=== PATIENT | male | born 1935 | race Caucasian/White ===

== ENCOUNTER → 2016-10-30 | Outpatient (CLI) | payer MEDICARE ==
[2016-09-27 15:35] VITALS: BP 126/56
[~2016-10-30] MED LIST: BISA10SU55 RC; CLOT15CR3 TP; CYAN10005 PO; DOCU100C5 PO; FAMO20TA5 PO; FLUT9.9S NS; FURO-69 PO; FURO40TA4 PO; HYDR-2672 PO; Hydrocodone/Acetaminophen PO; LISI-338 PO; LISI10TA2 PO; LORA10TA3 PO; MAG360OR24 PO; MESA4ENE3 PR; META800T21 PO; MONT10TA6 PO; NAPR220T70 PO; OXYC10TA32 PO; OXYC15TA60 PO; OXYC5TAB PO; PANT40TA3 PO; PEG1POWD PO; PHEN26CR RC; PHEN51GE TP; POTA20TA12 PO; SENN-6 PO; SIME80TA14 PO; TAMS0.4C2 PO; TAMS0.4C97 PO; TRAZ50TA15 PO; VIT1TABL32 PO; ZOLP10TA PO; [UNRECOGNIZED DRUG - CODE] PO
--- NOTE | 2016-10-30 11:30 | KCIC ---
PROCEDURE Three-view lumbar spine HISTORY Severe low back pain. Fusion May 2015. COMPARISON October 09, 2015. FINDINGS Changes of lumbar fusion from L3 through L5 are again identified. Alignment is stable since previous exam. Anterolisthesis of L4 on L5 appears similar. Multilevel lumbar spondylosis is re-demonstrated. There is generalized bone demineralization. The previously seen deformity of the upper sacrum, compatible with fracture, appears similar and alignment as on the prior study. Inferior vena cava filter is again noted. IMPRESSION 1. Postsurgical changes in lumbar spondylosis, re-demonstrated. 2. No significant change since the prior study. Electronically signed by: Taj Dowling MD (Oct 30, 2016 11:29:16)
== END | disposition home or self-care (01) ==
LOC: KCIC 10:38
PROVIDERS: ATTEND Neurological Surgery
DX: M47.896 Other spondylosis, lumbar region (principal)
CPT/HCPCS: 72100

== ENCOUNTER → 2016-11-24 | Outpatient (CLI) | payer MEDICARE ==
[2016-09-27 15:35] VITALS: BP 126/56
--- NOTE | 2016-11-24 10:11 | KCIC ---
PROCEDURE Ultrasound abdomen complete. HISTORY Diffuse abdominal pain. Bladder cancer. TECHNIQUE Ultrasound of the abdomen was performed. COMPARISON None. FINDINGS Pancreas is mostly obscured by bowel gas, visualized portions within normal limits. Aorta is normal caliber where visualized. IVC is patent. Liver is normal in size and echogenicity. There is no discrete hepatic mass. Gallbladder is negative. Common bile duct measures up to 6 millimeters, can be within normal limits in a patient of this age. Kidneys are atrophic, the right measuring 7.5 centimeters and the left 8.9 centimeters in size. There is increase in cortical echogenicity. Spleen is not well evaluated. IMPRESSION - Atrophic kidneys bilaterally with findings suggesting medical renal disease. - Spleen and midline structures poorly visualized by bowel gas and body habitus. Electronically signed by: Shawn Soliman MD (Nov 24, 2016 10:09:36)
== END | disposition home or self-care (01) ==
LOC: KCIC US 08:30
DX: R10.9 Unspecified abdominal pain (principal)
CPT/HCPCS: 76700

== ENCOUNTER → 2016-12-04 | Outpatient (CLI) | payer MEDICARE ==
[2016-09-27 15:35] VITALS: BP 126/56
[~2016-12-04] MED LIST changes: +IOHEXOL 240 MG/ML 50ML VIAL. PO ONE; +IOHEXOL 300 MG/ML 100ML VIAL. IV ONE
--- NOTE | 2016-12-04 12:14 | KCIC ---
PROCEDURE CT of the abdomen and pelvis without intravenous contrast HISTORY Upper abdomen pain. Acid reflux. Bladder cancer. Back, neck and carotid surgery. TECHNIQUE No intravenous contrast due to limited renal function. Oral contrast was given. Exposure: One or more of the following individualized dose reduction techniques were utilized for this exam: 1. Automated exposure control. 2. Adjustment of the mA and/or kV according to patient size. 3. Use of iterative reconstruction technique. COMPARISON October 20, 2013. FINDINGS Lung bases clear. Coronary calcifications are noted. Examination of solid viscera, GI tract and vascular structures is compromised by the noncontrast technique. Liver, spleen, pancreas, appear unremarkable. No adrenal mass although both kidneys demonstrate slightly nodular morphology, which is unchanged since the prior study. There is a small exophytic lesion arising from left kidney, measuring 15 millimeters diameter, likely a cyst. This was also identified on the prior study. Small calcification at the right renal pelvis is unchanged and may be vascular. There is a prominent right extrarenal pelvis versus parapelvic cyst. The ureters are difficult to follow. No calcified gallstone. The aorta is ectatic and calcified. Dense calcification at major aortic branches. No gross aortic aneurysm. No evidence of bowel obstruction. Mild wall thickening of the rectum. There may be mild wall thickening of the left transverse colon although this may just be due to incomplete distension. There is also some apparent wall thickening of the cecum without gross pericecal inflammation. There is a small round density within the cecum could represent an ingested substance. Mild generalized urinary bladder wall thickening appears slightly greater than on the prior study. The prostate gland is mildly enlarged. No evidence of ascites. No significant enlargement of visualized lymph nodes. Inferior vena cava filter is noted. There is a comminuted fracture of the left pubic bone, not seen on the prior study, and also not present on MRI exam of 04/09/2015. Vertical fractures are now identified through both iliac bones. These demonstrates some callus formation and may be of stress etiology. There is also abnormal lucency within the sacrum bilaterally, also probably due to stress fractures. There are surgical changes at the lower lumbar spine. Lumbar spondylosis is identified. IMPRESSION 1. Comminuted fracture of the left pubic bone. Vertical fractures of both iliac bones. Bilateral sacral fracture. These may all represent stress fractures assuming there is no trauma history. There is bone volume loss at the left pubic bone fracture, which could just represent bone resorption, but pathologic fracture such as from metastatic focus is not excludable. 2. Mild wall thickening of the rectum, cecum and possibly the left transverse colon, without much pericolonic inflammation. Etiology uncertain but nonspecific colitis is considered. 3. Mild uniform urinary bladder wall thickening, considerations include chronic outlet obstruction, or acute or chronic cystitis. 4. Above findings were left on the voicemail of Dr. Pineda's nurse, Lexa, at 12:05 p.m. on 12/04/2016. Electronically signed by: Taj Dowling MD (Dec 04, 2016 12:12:52)
== END | disposition home or self-care (01) ==
LOC: KCIC CT 09:51
PROVIDERS: ATTEND Internal Medicine Gastroenterology
DX: M84.48XA Pathological fracture, other site, initial encounter for fracture (principal); K21.9 Gastro-esophageal reflux disease without esophagitis; M47.896 Other spondylosis, lumbar region
CPT/HCPCS: 74176; 82565; Q9966

== ENCOUNTER 2017-04-18 02:31 | Inpatient (IN) | payer MEDICARE ==
[~2017-04-18] VITALS: Ht 177.8 cm; Wt 69.2 kg
[~2017-04-18 02:31] MED LIST changes: +DOCU100C28 PO; -DOCU100C5 PO; -HYDR-2672 PO; +HYDR-2766 PO; -IOHEXOL 240 MG/ML 50ML VIAL. PO ONE; -IOHEXOL 300 MG/ML 100ML VIAL. IV ONE; +META-21 PO; -META800T21 PO; -OXYC10TA32 PO; +OXYC10TA45 PO
[2017-04-18 03:47] LABS: BASO % 0 % (0-3); EOS % 1 % (0-3); HEMATOCRIT 30.5 % (39.0-53.0); HEMOGLOBIN 10.1 g/dL (13.0-17.5); LYMPH # 1.2 x10^3/uL (1.0-4.8); LYMPH % 14 % (24-48); MEAN CORPUSCULAR HEMOGLOBIN 31 pg (25-35); MEAN CORPUSCULAR HGB CONC 33 g/dL (31-37); MEAN CORPUSCULAR VOLUME 92 fL (79-100); MONO % 9 % (0-9); NEUT % 76 % (31-73); PLATELET COUNT 194 x10^3/uL (140-400); RED BLOOD COUNT 3.31 x10^6/uL (4.30-5.70); RED CELL DISTRIBUTION WIDTH 14.5 % (11.5-14.5); WHITE BLOOD COUNT 8.4 x10^3/uL (4.0-11.0)
[2017-04-18 04:00] LABS: INR 1.1 (0.8-1.1); PROTHROMBIN TIME PATIENT 13.3 SEC (11.7-14.0)
[2017-04-18] MEDS ORDERED: LIDOCAINE/EPI/TETRACAINE TOPICAL GEL 3 ML. TP ONE (04:00)
[2017-04-18] MEDS ORDERED: DIPHTH,PERTUSS(ACELL),TET TOX 0.5 ML DISP.SYRIN. VAX IM ONE (04:00)
[2017-04-18 04:04] LABS: CALCIUM 8.8 mg/dL (8.5-10.1); CREATININE 1.6 mg/dL (0.7-1.3); GFR 41.6; POTASSIUM 3.6 mmol/L (3.5-5.1)
[2017-04-18 04:09] LABS: ALBUMIN 3.3 g/dL (3.4-5.0); ALBUMIN/GLOBULIN RATIO 0.8 (1.0-1.7); TOTAL BILIRUBIN 0.2 mg/dL (0.2-1.0); TOTAL PROTEIN 7.2 g/dL (6.4-8.2)
--- NOTE | 2017-04-18 04:13 | RAD ---
Examination: CT head and cervical spine without contrast HISTORY: History of fall, neck pain, headache COMPARISON: None available Exposure: One or more of the following individualized dose reduction techniques were utilized for this examination: 1. Automated exposure control 2. Adjustment of the mA and/or kV according to patient size 3. Use of iterative reconstruction technique CT HEAD INDICATION: head and neck pain after fall COMPARISON: None Available. TECHNIQUE: 5 mm contiguous axial images were obtained from the skull base to the vertex in both bone and soft tissue algorithm. FINDINGS: Small left frontal lateral scalp hematoma identified. Mild bilateral periventricular white matter hypodensities likely chronic small vessel ischemic disease. No abnormal attenuation within the brain parenchyma. No evidence of acute intracranial hemorrhage. No extra-axial fluid collections. No mass effect or midline shift. Ventricular size is appropriate. Basal cisterns are patent. No fractures identified.Ceballos-white differentiation is preserved.Globes and orbits are within normal limits. Paranasal sinuses and mastoid air cells are clear. IMPRESSION: No acute intracranial findings . Small left scalp hematoma. CT CERVICAL SPINE INDICATION: head and neck pain after fall COMPARISON: None Available. Technique: 2.5 mm contiguous axial images were obtained from the skull base through the cervicothoracic junction in both bone and soft tissue algorithm. Additional sagittal and coronal reconstructions were also performed. FINDINGS: There is straightening of normal cervical lordosis. Anterior cervical fusion hardware identified at C3-C6 vertebral level. The bilateral facets are well aligned. Intervertebral disc spacers identified at C3-C4, C4-C5, C5-C6. The lateral masses of C1 are aligned upon C2. No fractures identified. Moderate degenerative changes identified throughout the cervical spine. The paraspinous soft tissues are unremarkable. Visualized intracranial contents are unremarkable. Lung apices are clear. IMPRESSION: 1. No acute fracture cervical spine. Correlate clinically. Anterior cervical fusion hardware with intervertebral disc spacers identified at C3-C6 vertebral level Electronically signed by: Madan Donohue MD (04/18/2017 4:10 AM) [facility] [id number]
[2017-04-18] MEDS ORDERED: ACETAMINOPHEN 325 MG TABLET. PO PRN (05:30)
[2017-04-18] MEDS ORDERED: MORPHINE SULFATE 4 MG/ML DISP.SYRIN. IV PRN (05:30)
[2017-04-18] MEDS ORDERED: ONDANSETRON PF 4 MG/2 ML VIAL. IV PRN (05:30)
--- NOTE | 2017-04-18 06:25 | PHYS DOC ---
Past Medical History Past Medical History: Anemia, Arthritis, GERD, Renal Disease Additional Past Medical Histor: BLADDER CANCER, BACK PAIN, DDD Past Surgical History: Tonsillectomy Additional Past Surgical Histo: BACK SX, KNEE SX, FILTER IN R LEG, CARTOID SX Alcohol Use: None Drug Use: None Adult General Chief Complaint Chief Complaint: MECHANICAL FALL HPI HPI Patient is a 81 year old male who presents with fall & scalp laceration. THe patient states he woke up 1 hour prior to arrival, experienced fall, hit head on dresser. States he took ambien before bed. Denes headache, neck pain, back pain, extremity pain. Denies fevers/cihlls, chest pain, palpitations, shortness of breath, abdominal pain, vomiting, diarrhea. Reports previous fall earlier this week. Denies use of blood thinners. Lives at home. Tetanus unnkwon. PCP is Dr. Marinelli. Review of Systems Review of Systems Constitutional: Denies fever or chills Eyes: Denies change in visual acuity HENT: Denies nasal congestion or sore throat Respiratory: Denies cough or shortness of breath Cardiovascular: Denies chest pain or edema GI: Denies abdominal pain, nausea, vomiting, bloody stools or diarrhea : Denies dysuria or hematuria Musculoskeletal: Denies back pain or joint pain Integument: Denies rash or skin lesions Neurologic: Reports headache, denies ocal weakness or sensory changes Current Medications Current Medications Current Medications Medications (Trade) Dose Ordered Sig/Carter Start Time Stop Time Status Last Admin Dose Admin Acetaminophen (Tylenol) 650 mg PRN Q4HRS PRN 04/18/17 05:30 04/19/17 05:29 Diphtheria/ Tetanus/Acell Pertussis (Boostrix) 0.5 ml ONCE ONCE 04/18/17 04:00 04/18/17 04:01 DC 04/18/17 04:26 0.5 ML Lidocaine/ Epinephrine (Let Topical) 3 ml 1X ONCE 04/18/17 04:00 04/18/17 04:01 DC 04/18/17 03:52 3 ML Morphine Sulfate 2 mg PRN Q2HR PRN 04/18/17 05:30 04/19/17 05:29 04/18/17 06:02 2 MG Ondansetron HCl (Zofran) 4 mg PRN Q8HRS PRN 04/18/17 05:30 04/19/17 05:29 Allergies Allergies Allergies Coded Allergies Type Severity Reaction Last Updated Verified Penicillins Allergy Intermediate 06/13/15 Yes adhesive tape Adverse Reaction Intermediate tape- pulls skin off 06/13/15 Yes Physical Exam Physical Exam Constitutional: Well developed, well nourished, no acute distress, non-toxic appearance. HENT: Normocephalic, large 10 cm scalp flap laceration to left frontal region, bilateral external ears normal, no hemotympanum or castle sign, oropharynx moist , nose normal. Eyes: PERRLA, EOMI, conjunctiva normal, no discharge. Neck: supple, no stridor. NO midline c-spine tenderness. Cardiovascular: RRR, no murmurs, no edema. Lungs & Thorax: LCTAB, no wheezing, no respiratory distress. Abdomen: soft, nontender, nondistended. Skin: Warm, dry, no erythema, no rash. Back: No spinal tenderness or step offs. Extremities: No tenderness, no edema. Neurologic: Alert and oriented X 3, CN2-12 grossly intact, symmetric strength/ sensation to UE & LE, no focal deficits noted. Psychologic: Affect normal, judgement normal, mood normal. Current Patient Data Vital Signs Vital Signs Date Time Temp Pulse Resp B/P (MAP) Pulse Ox O2 Delivery O2 Flow Rate FiO2 04/18/17 05:30 69 122/62 (82) 99 Room Air 04/18/17 02:35 98.4 16 98.4 Lab Values Laboratory Tests Test 04/18/17 03:30 White Blood Count 8.4 x10^3/uL (4.0-11.0) Red Blood Count 3.31 x10^6/uL (4.30-5.70) L Hemoglobin 10.1 g/dL (13.0-17.5) L Hematocrit 30.5 % (39.0-53.0) L Mean Corpuscular Volume 92 fL (79-100) Mean Corpuscular Hemoglobin 31 pg (25-35) Mean Corpuscular Hemoglobin Concent 33 g/dL (31-37) Red Cell Distribution Width 14.5 % (11.5-14.5) Platelet Count 194 x10^3/uL (140-400) Neutrophils (%) (Auto) 76 % (31-73) H Lymphocytes (%) (Auto) 14 % (24-48) L Monocytes (%) (Auto) 9 % (0-9) Eosinophils (%) (Auto) 1 % (0-3) Basophils (%) (Auto) 0 % (0-3) Neutrophils # (Auto) 6.4 x10^3uL (1.8-7.7) Lymphocytes # (Auto) 1.2 x10^3/uL (1.0-4.8) Monocytes # (Auto) 0.8 x10^3/uL (0.0-1.1) Eosinophils # (Auto) 0.1 x10^3/uL (0.0-0.7) Basophils # (Auto) 0.0 x10^3/uL (0.0-0.2) Prothrombin Time 13.3 SEC (11.7-14.0) Prothrombin Time INR 1.1 (0.8-1.1) PTT 28 SEC (24-38) Sodium Level 144 mmol/L (136-145) Potassium Level 3.6 mmol/L (3.5-5.1) Chloride Level 104 mmol/L (98-107) Carbon Dioxide Level 31 mmol/L (21-32) Anion Gap 9 (6-14) Blood Urea Nitrogen 40 mg/dL (8-26) H Creatinine 1.6 mg/dL (0.7-1.3) H Estimated GFR (Cockcroft-Gault) 41.6 BUN/Creatinine Ratio 25 (6-20) H Glucose Level 117 mg/dL (70-99) H Calcium Level 8.8 mg/dL (8.5-10.1) Total Bilirubin 0.2 mg/dL (0.2-1.0) Aspartate Amino Transferase (AST) 16 U/L (15-37) Alanine Aminotransferase (ALT) 18 U/L (16-63) Alkaline Phosphatase 103 U/L (46-116) Troponin I Quantitative < 0.017 ng/mL (0.000-0.055) JY-Xbl-G-Type Natriuretic Peptide 247 pg/mL (0-449) Total Protein 7.2 g/dL (6.4-8.2) Albumin 3.3 g/dL (3.4-5.0) L Albumin/Globulin Ratio 0.8 (1.0-1.7) L Laboratory Tests 04/18/17 03:30 Laboratory Tests 04/18/17 03:30 EKG EKG Oversight - not originally complaining of syncope. Ordered to be performed on the floor. Radiology/Procedures Radiology/Procedures PROCEDURE: CT HEAD AND CERVICAL SPINE WO Examination: CT head and cervical spine without contrast HISTORY: History of fall, neck pain, headache COMPARISON: None available Exposure: One or more of the following individualized dose reduction techniques were utilized for this examination: 1. Automated exposure control 2. Adjustment of the mA and/or kV according to patient size 3. Use of iterative reconstruction technique CT HEAD INDICATION: head and neck pain after fall COMPARISON: None Available. TECHNIQUE: 5 mm contiguous axial images were obtained from the skull base to the vertex in both bone and soft tissue algorithm. FINDINGS: Small left frontal lateral scalp hematoma identified. Mild bilateral periventricular white matter hypodensities likely chronic small vessel ischemic disease. No abnormal attenuation within the brain parenchyma. No evidence of acute intracranial hemorrhage. No extra-axial fluid collections. No mass effect or midline shift. Ventricular size is appropriate. Basal cisterns are patent. No fractures identified.Ceballos-white differentiation is preserved.Globes and orbits are within normal limits. Paranasal sinuses and mastoid air cells are clear. IMPRESSION: No acute intracranial findings . Small left scalp hematoma. CT CERVICAL SPINE INDICATION: head and neck pain after fall COMPARISON: None Available. Technique: 2.5 mm contiguous axial images were obtained from the skull base through the cervicothoracic junction in both bone and soft tissue algorithm. Additional sagittal and coronal reconstructions were also performed. FINDINGS: There is straightening of normal cervical lordosis. Anterior cervical fusion hardware identified at C3-C6 vertebral level. The bilateral facets are well aligned. Intervertebral disc spacers identified at C3-C4, C4-C5, C5-C6. The lateral masses of C1 are aligned upon C2. No fractures identified. Moderate degenerative changes identified throughout the cervical spine. The paraspinous soft tissues are unremarkable. Visualized intracranial contents are unremarkable. Lung apices are clear. IMPRESSION: 1. No acute fracture cervical spine. Correlate clinically. Anterior cervical fusion hardware with intervertebral disc spacers identified at C3-C6 vertebral level Electronically signed by: Madan Donohue MD (04/18/2017 4:10 AM) [facility] DICTATED and SIGNED BY: MADAN DONOHUE MD DATE: 04/18/17 0401 [] Course & Med Decision Making Course & Med Decision Making Pertinent Labs and Imaging studies reviewed. (See chart for details) The patient presents with pain after a fall. Tetanus updated. Wound irrigated by RN. I attempted laceration repair after application of LET. THe affected area is so large & there is absence of adequate tissue to approximate wound edges. RN to place dressing. No serious abnormality identified on workup. Recommend admission for further evaluation for possible syncope & wound care consult for large scalp laceration. THe patient agrees with plan of care. Discussed iwth Dr. Coreas. The patient is admitted in stable condition. [] Dragon Disclaimer Dragon Disclaimer This electronic medical record was generated, in whole or in part, using a voice recognition dictation system. Departure Departure Impression: Primary Impression: Syncope Additional Impressions: Scalp laceration Acute renal failure Disposition: ADMITTED INPATIENT Admitting Physician: Elidia Coreas Condition: STABLE Problem Qualifiers MARIBELL ACOSTA MD Apr 18, 2017 06:24
[2017-04-18 06:27] LABS: BILIRUBIN,URINE NEGATIVE (NEG); GLUCOSE,URINE NEGATIVE (NEG); NITRITE,URINE NEGATIVE (NEG); PH,URINE 5.5; PROTEIN,URINE NEGATIVE (NEG-TRACE); UROBILINOGEN,URINE 0.2 mg/dL (0.2 mg/dL)
[2017-04-18 07:07] LABS: BACTERIA,URINE FEW /HPF (0-FEW); SQUAMOUS EPITHELIAL CELL,UR OCC /LPF
[2017-04-18 07:54] VITALS: BP 138/75
--- NOTE | 2017-04-18 09:28 | EKG ---
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
[2017-04-18] MEDS ORDERED: ZOLP5TAB PO (09:56)
[2017-04-18] MEDS ORDERED: POLY255P PO (09:56)
[2017-04-18] MEDS ORDERED: VIT1TABL34 PO (09:56)
[2017-04-18] MEDS ORDERED: DOCU100C28 PO (09:56)
[2017-04-18] MEDS ORDERED: POTASSIUM CHLO10 MEQ PO (09:56)
[2017-04-18] MEDS ORDERED: CYAN10005 PO (09:56)
[2017-04-18] MEDS ORDERED: NIAC500C6 PO (09:56)
[2017-04-18 10:55] VITALS: BP 118/63
[2017-04-18 15:00] VITALS: BP 124/57
[2017-04-18 19:59] VITALS: BP 113/73
[2017-04-18] MEDS ORDERED: DOCUSATE SODIUM 100 MG CAPSULE. PO PRN ×2 (21:00→22:00)
[2017-04-18] MEDS ORDERED: ZOLPIDEM 5 MG TABLET. PO PRN (21:00)
[2017-04-18] MEDS ORDERED: LOPERAMIDE 2 MG CAPSULE PO PRN (21:00)
[2017-04-18] MEDS ORDERED: HYDROcodone/APAP 10/325 1 TAB TABLET PO PRN (22:00)
[2017-04-18] MEDS ORDERED: POLYETHYLENE GLYCOL 3350 17 GM PACKET. PO PRN (22:00)
--- NOTE | 2017-04-18 22:42 | HP ---
ADMIT DATE: 04/18/2017 CHIEF COMPLAINT: Fall with superficial head injury. HISTORY OF PRESENT ILLNESS: The patient is an 81-year-old gentleman who lives at home with his , uses a walker to ambulate, who presented to the Emergency Room after a fall with head injury with significant bleeding. He relates that he woke up in the early childhood hours and arose to go to the bathroom when he experienced a blackout, fell and hit his dresser. He had taken an Ambien before. Denies any neck pain or back pain. Does have mild headaches. Denies any fevers, chills, chest pain, shortness of breath or other symptoms. On further questioning, he relates that he actually had fallen twice before in the past week. Both times, the cause was mechanical, and he was able to right himself, although with difficulties. In the Emergency Room, he was evaluated, flat films and CT cervical spine did not reveal any significant bony abnormalities. A fairly large defect in his scalp was attempted to be sutured; however, not enough skin was available to do so. A dressing was placed. He is now admitted for workup and care. 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 Positive for PVD with carotid disease and claudication. FAMILY HISTORY: The patient is unaware of any diseases prevalent in the family. SOCIAL HISTORY: Lives with his . No toxic habits. ALLERGIES: PENICILLINS. MEDICATIONS: MAR reconciled with home medications. REVIEW OF SYSTEMS: The patient denies significant headache, but he is wondering about his wound. He has chronic aches and pains, nothing acute. Denies any ongoing hematuria or diarrhea, but would like preparations for both diarrhea as well as constipation. Rest of organ system review is negative. PHYSICAL EXAMINATION: VITAL SIGNS: Show a blood pressure of 118/63, heart rate of 75, respiratory rate at 18. He is afebrile. GENERAL: This is an 81-year-old well-nourished gentleman, alert and oriented, in no acute distress, very verbose. HEENT: Shows no scleral icterus. NECK: Supple. LUNGS: Clear to auscultation bilaterally. HEART: Has regular rate and rhythm. ABDOMEN: Has positive bowel sounds, soft, nontender. EXTREMITIES: Show no edema. SKIN: Warm, soft and dry. Head shows deep skin injury over the left frontotemporal area with defect almost to the bone. No hematoma noted. There is also an abrasion over the bridge of his nose. LABORATORY DATA: CBC with a WBC of 8.4, hemoglobin 10.1, platelets of 194. Chemistries with a BUN and creatinine of 40 and 1.6. Electrolytes within normal limits. LFTs within normal, albumin at 3.3. Urine with 1-3 wbc's. IMAGING STUDIES: CT of the head and spine shows no acute intracranial findings, small left scalp hematoma. Cervical spine without acute fracture in the cervical spine, anterior cervical fusion hardware with intervertebral disk spaces identified at C3-C6. ASSESSMENT AND PLAN: The patient is an 81-year-old gentleman admitted after a fall with superficial head injury. This could not be approximated due to lack of the skin. Wound care nurse will have to apply appropriate bandages. Unfortunately, this may not be happening until Thursday. Etiology of his syncopal episode is not quite clear, although I suspect that Ambien and potential dehydration have to be blamed. He has had several mechanical falls in recent past as well. May benefit from rehab placement. We will continue all his home medications. Pain medications will be made available for him as well. PAULY ROJAS MD DR: VLAD/uvaldo JOB#: [id number] / [id number] GEORGE Barrett
[2017-04-18 23:42] VITALS: BP 133/71
[2017-04-19] VITALS (7 sets, daily range): BP systolic 106–138; BP diastolic 62–70
--- NOTE | 2017-04-19 03:14 | ACF ---
Admission Forms Criteria TELEMETRY CARE Telemetry Admission Guidelines (Place 'X' for any and all applicable criteria): Admission to telemetry [A] may be indicated for ANY ONE of the following(1)(2)(3 )(4)(5): [ ]I. Cardiac disease, including ANY ONE of the following (9)(10)(11)(12)(13 ): [ ]a) Postacute NJ [ ]b) Low-risk patients with ST-segment elevation NJ who have undergone successful percutaneous coronary intervention [ ]c) Unstable angina [ ]d) Suspected NJ (until it is ruled out) [ ]e) Post cardiac surgery (first 48 to 72 hours unless complications occur) [ ]f) Acute arrhythmias (including significant tachycardia or bradycardia) [B] [ ]g) Firing of an implantable cardioverter defibrillator [C] [ ]h) Suspected pacemaker or implantable cardioverter defibrillator malfunction (10) [ ]i) New administration or adjustment of an antiarrhythmic drug [D ] [ ]j) Child admitted for acute congestive heart failure [ ]j) Long QT syndrome [ ]k) Advanced heart block (eg, second-degree Mobitz type II, third- degree heart block) [ ]l) Acute myocarditis or pericarditis [ ]m) Short-term (ambulatory or inpatient) monitoring after a cardiac procedure as indicated by ANY ONE of the following [E]: [ ]i) Electrophysiologic studies [ ]ii) Percutaneous coronary intervention with stent placement [ ]iii) Pacemaker placement with cardiac conduction defect [ ]iv) Implantable cardiac defibrillator placement [ ]II. Drug overdose or poisoning with substance that causes arrhythmias or QT prolongation (eg, phenothiazines, sympathomimetic agents, cyclic antidepressants, digitalis, antiarrhythmic drugs)(15) [ ]III. Short-term (ambulatory or inpatient) monitoring after therapeutic or diagnostic procedure requiring conscious sedation or anesthesia (eg, endoscopy, elective cardioversion) [ ]IV. Acute cerebrovascular even[F](18) [ ]V. Massive blood transfusion (eg, at least 10 units of packed red blood cells in 24 hours) [ ]. Variceal bleeding after endoscopy, sclerotherapy, or IV vasopressin [ ]VII. Uncorrected electrolyte abnormalities associated with an increased risk of dangerous arrhythmia [G]; examples include [ ]a) Hyperkalemia with attributable ECG changes [ ]b) Potassium greater than 6.5 mmol/L (mEq/L) in a patient without history of chronic renal disease [ ]c) Prolonged QT attributed to hypokalemia, hypomagnesemia, or hypocalcemia [ X]VIII.Unexplained syncope or other neurologic event suspected of being due to arrhythmia due to a finding that increases risk; examples include(19)(20)(21): [ ]a) High-risk ECG findings (eg, bifascicular block, bradycardia, abnormal QT interval, ventricular pre- excitation) [ ]b) History of previous syncope due to arrhythmia [ ]c) Abnormal ventricular function (eg, reduced ejection fraction ) [ ]d) Exertional or supine syncope [X ]e) Concerning syncope characteristics (eg, sudden loss of consciousness without prodrome) [ ]f) Family history of sudden [ ]g) Use of arrhythmogenic medication [ ]h) Suspected cardiac ischemia [ ]i) Known channelopathy (eg, long QT syndrome, Brugada syndrome, or catecholaminergic paroxysmal ventricular tachycardia) [ ]j) Known structural heart disease (eg, hypertrophic cardiomyopathy , severe valvular disease) [ ]k) Palpitations preceding syncope The original [employer] content created by [employer] has been revised. The portions of the content which have been revised are identified through the use of italic text or in bold, and [employer] [facility] [employer] has neither reviewed nor approved the modified material. All other unmodified content is copyright [employer]. Please see references footnoted in the original [employer] edition 2016 Admission Criteria Met?: Yes MEREDITH ZIMMERMAN Apr 19, 2017 03:14
[2017-04-19 06:06] LABS: BASO % 1 % (0-3); EOS % 3 % (0-3); HEMATOCRIT 25.3 % (39.0-53.0); HEMOGLOBIN 8.5 g/dL (13.0-17.5); LYMPH # 1.3 x10^3/uL (1.0-4.8); LYMPH % 21 % (24-48); MEAN CORPUSCULAR HEMOGLOBIN 31 pg (25-35); MEAN CORPUSCULAR HGB CONC 34 g/dL (31-37); MEAN CORPUSCULAR VOLUME 91 fL (79-100); MONO % 10 % (0-9); NEUT % 65 % (31-73); PLATELET COUNT 169 x10^3/uL (140-400); RED CELL DISTRIBUTION WIDTH 14.8 % (11.5-14.5); WHITE BLOOD COUNT 6.3 x10^3/uL (4.0-11.0)
[2017-04-19 06:23] LABS: CALCIUM 8.6 mg/dL (8.5-10.1); CREATININE 1.3 mg/dL (0.7-1.3); GFR 52.9; POTASSIUM 4.1 mmol/L (3.5-5.1)
[2017-04-19] MEDS: POTASSIUM CHLORIDE 10 MEQ TABLET.ER. PO SCH (07:28)
[2017-04-19] MEDS: PANTOPRAZOLE 40 MG TABLET.DR. PO SCH (07:28)
[2017-04-19] MEDS: PHENYLEPHRINE SUPP.RECT. PR SCH ×2 (08:51→20:30)
[2017-04-19] MEDS: FLUTICASONE 50MCG/NASAL SPRAY 16GM BOTTLE. NS SCH (08:51)
[2017-04-19] MEDS: CYANOCOBALAMIN (VITAMIN B-12) 1,000 MCG TABLET. PO SCH (08:51)
[2017-04-19] MEDS: MULTIVITAMIN I-VITE TABLET. PO SCH (08:51)
[2017-04-19] MEDS ORDERED: FUROSEMIDE 40 MG TABLET. PO SCH (09:00)
--- NOTE | 2017-04-19 13:58 | PDOC ---
PROGRESS NOTES Chief Complaint Chief Complaint s/p fall superficial head injury ASSESSMENT AND PLAN: 1. Scalp abrasion: not suturable due to missing skin. wound dressing, F/U in wound clinic 2. Syncope: suspect ambien and dehydration, also component of LE weakness with prior mechanical falls. 3. Gen weakness; OT/PT eval, poss rehab; d/w him, he is amenable 4. EMERALD: improved, suspect 2/2 dehydration. monitor. decrease home lasix. 5. CHF: grade 1 DD in 08/2016. no acute issues. 6. Anemia: moderate, normocytic, normochromic. suspect chronic inflammation ( CHF, cystitis) and CKD. check anemia panel 7. Bladder CA: superficial and invasive; s/p XRT, chemo, surgery and BCG irrigations. 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 F/U with [facility] 8. Prophylaxis: heparin Vitals Vitals Vital Signs Date Time Temp Pulse Resp B/P (MAP) Pulse Ox O2 Delivery O2 Flow Rate FiO2 04/19/17 11:00 98.1 79 18 117/63 (81) 96 Room Air 98.1 Physical Exam General: Alert, Oriented X3, Cooperative, No acute distress Heart: Regular rate Lungs: Clear Abdomen: Normal bowel sounds, Soft, No tenderness Extremities: No edema Skin: No rashes, Other (scalp and bridge of nose abrasions) Labs LABS Laboratory Tests Test 04/19/17 05:56 White Blood Count 6.3 x10^3/uL (4.0-11.0) Red Blood Count 2.80 x10^6/uL (4.30-5.70) Hemoglobin 8.5 g/dL (13.0-17.5) Hematocrit 25.3 % (39.0-53.0) Mean Corpuscular Volume 91 fL (79-100) Mean Corpuscular Hemoglobin 31 pg (25-35) Mean Corpuscular Hemoglobin Concent 34 g/dL (31-37) Red Cell Distribution Width 14.8 % (11.5-14.5) Platelet Count 169 x10^3/uL (140-400) Neutrophils (%) (Auto) 65 % (31-73) Lymphocytes (%) (Auto) 21 % (24-48) Monocytes (%) (Auto) 10 % (0-9) Eosinophils (%) (Auto) 3 % (0-3) Basophils (%) (Auto) 1 % (0-3) Neutrophils # (Auto) 4.1 x10^3uL (1.8-7.7) Lymphocytes # (Auto) 1.3 x10^3/uL (1.0-4.8) Monocytes # (Auto) 0.6 x10^3/uL (0.0-1.1) Eosinophils # (Auto) 0.2 x10^3/uL (0.0-0.7) Basophils # (Auto) 0.0 x10^3/uL (0.0-0.2) Sodium Level 142 mmol/L (136-145) Potassium Level 4.1 mmol/L (3.5-5.1) Chloride Level 106 mmol/L (98-107) Carbon Dioxide Level 28 mmol/L (21-32) Anion Gap 8 (6-14) Blood Urea Nitrogen 30 mg/dL (8-26) Creatinine 1.3 mg/dL (0.7-1.3) Estimated GFR (Cockcroft-Gault) 52.9 Glucose Level 94 mg/dL (70-99) Calcium Level 8.6 mg/dL (8.5-10.1) PAULY ROJAS MD Apr 19, 2017 13:58
[2017-04-19] MEDS ORDERED: HYDROcodone/APAP 10/325 1 TAB TABLET PO PRN (14:00)
[2017-04-19] MEDS: NIACIN ER 500 MG TABLET.ER PO SCH (21:00)
[2017-04-19] MEDS: ZOLPIDEM 5 MG TABLET. PO SCH ×2 (21:00→22:50)
[2017-04-19] MEDS: diphenhydrAMINE HCL 25 MG CAPSULE PO PRN (21:35)
[2017-04-19] MEDS: HYDROcodone/APAP 10/325 1 TAB TABLET PO PRN (21:43)
[2017-04-20] MEDS: HYDROcodone/APAP 10/325 1 TAB TABLET PO PRN (02:07)
[2017-04-20 06:55] LABS: BASO % 0 % (0-3); EOS % 5 % (0-3); HEMATOCRIT 27.6 % (39.0-53.0); HEMOGLOBIN 9.1 g/dL (13.0-17.5); LYMPH # 1.4 x10^3/uL (1.0-4.8); LYMPH % 20 % (24-48); MEAN CORPUSCULAR HEMOGLOBIN 30 pg (25-35); MEAN CORPUSCULAR HGB CONC 33 g/dL (31-37); MEAN CORPUSCULAR VOLUME 92 fL (79-100); MONO % 9 % (0-9); NEUT % 66 % (31-73); PLATELET COUNT 175 x10^3/uL (140-400); RED CELL DISTRIBUTION WIDTH 14.5 % (11.5-14.5); RETIC COUNT 0.9 % (0.5-2.5); WHITE BLOOD COUNT 6.9 x10^3/uL (4.0-11.0)
[2017-04-20 07:00] VITALS: BP 101/56
[2017-04-20 07:07] LABS: % SAT IRON 16 % (15-34); IRON,SERUM 36 ug/dL (65-175)
[2017-04-20 07:21] LABS: CALCIUM 8.5 mg/dL (8.5-10.1); CREATININE 1.4 mg/dL (0.7-1.3); GFR 48.5
[2017-04-20] MEDS: PHENYLEPHRINE SUPP.RECT. PR SCH ×2 (09:00→21:00)
[2017-04-20] MEDS: FUROSEMIDE 20 MG TABLET PO SCH (09:09)
[2017-04-20] MEDS: CYANOCOBALAMIN (VITAMIN B-12) 1,000 MCG TABLET. PO SCH (09:09)
[2017-04-20] MEDS: PANTOPRAZOLE 40 MG TABLET.DR. PO SCH (09:10)
[2017-04-20] MEDS: MULTIVITAMIN I-VITE TABLET. PO SCH (09:10)
[2017-04-20] MEDS: POTASSIUM CHLORIDE 10 MEQ TABLET.ER. PO SCH (09:10)
[2017-04-20] MEDS: FLUTICASONE 50MCG/NASAL SPRAY 16GM BOTTLE. NS SCH (09:12)
[2017-04-20 10:36] LABS: FOLATE 20.33 ng/ml (3.2-20.0)
[2017-04-20 11:00] VITALS: BP 129/63
--- NOTE | 2017-04-20 14:59 | PDOC ---
PROGRESS NOTES Chief Complaint Chief Complaint s/p fall superficial head injury 1. Gen weakness 2. EMERALD 3. CHF: grade 1 DD in 08/2016. no acute issues. 4. Anemia: moderate, normocytic, normochromic. suspect chronic inflammation ( CHF, cystitis) and CKD 5. Bladder CA: superficial and invasive; s/p XRT, chemo, surgery and BCG irrigations. 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 History of Present Illness History of Present Illness Pt sitting on side of bed with CRAB PICKER assisting, concerned about wound care for his scalp abrasion. Vitals Vitals Vital Signs Date Time Temp Pulse Resp B/P (MAP) Pulse Ox O2 Delivery O2 Flow Rate FiO2 04/20/17 11:00 97.5 70 18 129/63 (85) 97.5 04/20/17 08:00 Room Air 04/20/17 07:00 98 Physical Exam General: Alert, Oriented X3, Cooperative, No acute distress Heart: Regular rate, No murmurs Lungs: Clear Abdomen: Normal bowel sounds, Soft, No tenderness Extremities: No edema Skin: No rashes, Other (scalp and bridge of nose abrasions) Labs LABS Laboratory Tests Test 04/20/17 06:15 White Blood Count 6.9 x10^3/uL (4.0-11.0) Red Blood Count 3.00 x10^6/uL (4.30-5.70) Hemoglobin 9.1 g/dL (13.0-17.5) Hematocrit 27.6 % (39.0-53.0) Mean Corpuscular Volume 92 fL (79-100) Mean Corpuscular Hemoglobin 30 pg (25-35) Mean Corpuscular Hemoglobin Concent 33 g/dL (31-37) Red Cell Distribution Width 14.5 % (11.5-14.5) Platelet Count 175 x10^3/uL (140-400) Neutrophils (%) (Auto) 66 % (31-73) Lymphocytes (%) (Auto) 20 % (24-48) Monocytes (%) (Auto) 9 % (0-9) Eosinophils (%) (Auto) 5 % (0-3) Basophils (%) (Auto) 0 % (0-3) Neutrophils # (Auto) 4.6 x10^3uL (1.8-7.7) Lymphocytes # (Auto) 1.4 x10^3/uL (1.0-4.8) Monocytes # (Auto) 0.6 x10^3/uL (0.0-1.1) Eosinophils # (Auto) 0.3 x10^3/uL (0.0-0.7) Basophils # (Auto) 0.0 x10^3/uL (0.0-0.2) Reticulocyte Count (auto) 0.9 % (0.5-2.5) Sodium Level 141 mmol/L (136-145) Potassium Level 4.0 mmol/L (3.5-5.1) Chloride Level 104 mmol/L (98-107) Carbon Dioxide Level 30 mmol/L (21-32) Anion Gap 7 (6-14) Blood Urea Nitrogen 28 mg/dL (8-26) Creatinine 1.4 mg/dL (0.7-1.3) Estimated GFR (Cockcroft-Gault) 48.5 Glucose Level 95 mg/dL (70-99) Calcium Level 8.5 mg/dL (8.5-10.1) Iron Level 36 ug/dL (65-175) Total Iron Binding Capacity 223 ug/dL (250-450) Iron Saturation 16 % (15-34) Ferritin 129 ng/mL (26-388) Vitamin B12 Level 561 pg/mL (247-911) Serum Folate 20.33 ng/ml (3.2-20.0) Review of Systems Review of Systems head trauma - scalp abrasion denies constipation Assessment and Plan Assessmemt and Plan Problems Medical Problems: (1) Acute renal failure Status: Acute (2) Scalp laceration Status: Acute (3) Syncope Status: Acute ASSESSMENT AND PLAN: 1. Scalp abrasion: wound dressing, F/U in wound clinic 2. Syncope: Continue cardiac monitoring, consult Dr. Moss 3. Gen weakness; OT/PT eval 4. EMERALD: improved, decrease home lasix. 5. CHF: grade 1 DD in 08/2016. no acute issues. 6. Anemia: moderate, normocytic, normochromic. suspect chronic inflammation ( CHF, cystitis) and CKD. 7. Bladder CA: superficial and invasive; s/p XRT, chemo, surgery and BCG irrigations. 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 F/U with [facility] 8. Prophylaxis: heparin Problems: Comment Review of Relevant I have reviewed the following items ayo (where applicable) has been applied. Labs Laboratory Tests Test 04/19/17 05:56 04/20/17 06:15 White Blood Count 6.3 x10^3/uL (4.0-11.0) 6.9 x10^3/uL (4.0-11.0) Red Blood Count 2.80 x10^6/uL (4.30-5.70) 3.00 x10^6/uL (4.30-5.70) Hemoglobin 8.5 g/dL (13.0-17.5) 9.1 g/dL (13.0-17.5) Hematocrit 25.3 % (39.0-53.0) 27.6 % (39.0-53.0) Mean Corpuscular Volume 91 fL (79-100) 92 fL (79-100) Mean Corpuscular Hemoglobin 31 pg (25-35) 30 pg (25-35) Mean Corpuscular Hemoglobin Concent 34 g/dL (31-37) 33 g/dL (31-37) Red Cell Distribution Width 14.8 % (11.5-14.5) 14.5 % (11.5-14.5) Platelet Count 169 x10^3/uL (140-400) 175 x10^3/uL (140-400) Neutrophils (%) (Auto) 65 % (31-73) 66 % (31-73) Lymphocytes (%) (Auto) 21 % (24-48) 20 % (24-48) Monocytes (%) (Auto) 10 % (0-9) 9 % (0-9) Eosinophils (%) (Auto) 3 % (0-3) 5 % (0-3) Basophils (%) (Auto) 1 % (0-3) 0 % (0-3) Neutrophils # (Auto) 4.1 x10^3uL (1.8-7.7) 4.6 x10^3uL (1.8-7.7) Lymphocytes # (Auto) 1.3 x10^3/uL (1.0-4.8) 1.4 x10^3/uL (1.0-4.8) Monocytes # (Auto) 0.6 x10^3/uL (0.0-1.1) 0.6 x10^3/uL (0.0-1.1) Eosinophils # (Auto) 0.2 x10^3/uL (0.0-0.7) 0.3 x10^3/uL (0.0-0.7) Basophils # (Auto) 0.0 x10^3/uL (0.0-0.2) 0.0 x10^3/uL (0.0-0.2) Sodium Level 142 mmol/L (136-145) 141 mmol/L (136-145) Potassium Level 4.1 mmol/L (3.5-5.1) 4.0 mmol/L (3.5-5.1) Chloride Level 106 mmol/L (98-107) 104 mmol/L (98-107) Carbon Dioxide Level 28 mmol/L (21-32) 30 mmol/L (21-32) Anion Gap 8 (6-14) 7 (6-14) Blood Urea Nitrogen 30 mg/dL (8-26) 28 mg/dL (8-26) Creatinine 1.3 mg/dL (0.7-1.3) 1.4 mg/dL (0.7-1.3) Estimated GFR (Cockcroft-Gault) 52.9 48.5 Glucose Level 94 mg/dL (70-99) 95 mg/dL (70-99) Calcium Level 8.6 mg/dL (8.5-10.1) 8.5 mg/dL (8.5-10.1) Reticulocyte Count (auto) 0.9 % (0.5-2.5) Iron Level 36 ug/dL (65-175) Total Iron Binding Capacity 223 ug/dL (250-450) Iron Saturation 16 % (15-34) Ferritin 129 ng/mL (26-388) Vitamin B12 Level 561 pg/mL (247-911) Serum Folate 20.33 ng/ml (3.2-20.0) Laboratory Tests Test 04/20/17 06:15 White Blood Count 6.9 x10^3/uL (4.0-11.0) Red Blood Count 3.00 x10^6/uL (4.30-5.70) Hemoglobin 9.1 g/dL (13.0-17.5) Hematocrit 27.6 % (39.0-53.0) Mean Corpuscular Volume 92 fL (79-100) Mean Corpuscular Hemoglobin 30 pg (25-35) Mean Corpuscular Hemoglobin Concent 33 g/dL (31-37) Red Cell Distribution Width 14.5 % (11.5-14.5) Platelet Count 175 x10^3/uL (140-400) Neutrophils (%) (Auto) 66 % (31-73) Lymphocytes (%) (Auto) 20 % (24-48) Monocytes (%) (Auto) 9 % (0-9) Eosinophils (%) (Auto) 5 % (0-3) Basophils (%) (Auto) 0 % (0-3) Neutrophils # (Auto) 4.6 x10^3uL (1.8-7.7) Lymphocytes # (Auto) 1.4 x10^3/uL (1.0-4.8) Monocytes # (Auto) 0.6 x10^3/uL (0.0-1.1) Eosinophils # (Auto) 0.3 x10^3/uL (0.0-0.7) Basophils # (Auto) 0.0 x10^3/uL (0.0-0.2) Reticulocyte Count (auto) 0.9 % (0.5-2.5) Sodium Level 141 mmol/L (136-145) Potassium Level 4.0 mmol/L (3.5-5.1) Chloride Level 104 mmol/L (98-107) Carbon Dioxide Level 30 mmol/L (21-32) Anion Gap 7 (6-14) Blood Urea Nitrogen 28 mg/dL (8-26) Creatinine 1.4 mg/dL (0.7-1.3) Estimated GFR (Cockcroft-Gault) 48.5 Glucose Level 95 mg/dL (70-99) Calcium Level 8.5 mg/dL (8.5-10.1) Iron Level 36 ug/dL (65-175) Total Iron Binding Capacity 223 ug/dL (250-450) Iron Saturation 16 % (15-34) Ferritin 129 ng/mL (26-388) Vitamin B12 Level 561 pg/mL (247-911) Serum Folate 20.33 ng/ml (3.2-20.0) Medications Current Medications Diphtheria/ Tetanus/Acell Pertussis (Boostrix) 0.5 ml ONCE ONCE VAX IM Last administered on 04/18/17 04:26; Start 04/18/17 at 04:00; Stop 04/18/17 at 04:01 ; Status DC Lidocaine/ Epinephrine (Let Topical) 3 ml 1X ONCE TP Last administered on 04/18 03:52; Start 04/18/17 at 04:00; Stop 04/18/17 at 04:01; Status DC Ondansetron HCl (Zofran) 4 mg PRN Q8HRS PRN IV NAUSEA/VOMITING; Start 04/18/17 at 05:30; Stop 04/19/17 at 05:29; Status DC Morphine Sulfate 2 mg PRN Q2HR PRN IV SEVERE PAIN Last administered on 06:02; Start 04/18/17 at 05:30; Stop 04/19/17 at 05:29; Status DC Acetaminophen (Tylenol) 650 mg PRN Q4HRS PRN PO FEVER; Start 04/18/17 at 05:30 ; Stop 04/19/17 at 05:29; Status DC Zolpidem Tartrate (Ambien) 5 mg PRN QHS PRN PO INSOMNIA Last administered on 21:27; Start 04/18/17 at 21:00; Stop 04/19/17 at 13:52; Status DC Docusate Sodium (Colace) 100 mg PRN BID PRN PO CONSTIPATION; Start 04/18/17 at 21:00 Loperamide HCl (Imodium) 2 mg PRN Q1HR PRN PO DIARRHEA; Start 04/18/17 at 21:00 Cyanocobalamin (Vitamin B-12) 1,000 mcg DAILY PO Last administered on 09:09; Start 04/19/17 at 09:00 Docusate Sodium (Colace) 100 mg PRN DAILY PRN PO CONSTIPATION; Start 04/18/17 at 22:00; Status Cancel Furosemide (Lasix) 60 mg DAILY PO Last administered on 04/19/17 08:51; Start 04/19/17 at 09:00; Stop 04/19/17 at 13:52; Status DC Acetaminophen/ Hydrocodone Bitart (Lortab 10/325) 1 tab PRN Q4HRS PRN PO SEVERE PAIN Last administered on 04/19/17 08:56; Start 04/18/17 at 22:00; Stop 04/19/17 at 13:54; Status DC Pantoprazole Sodium (Protonix) 40 mg DAILYAC PO Last administered on 04/20/17 09:10; Start 04/19/17 at 07:30 Polyethylene Glycol (miraLAX PACKET) 17 gm PRN DAILY PRN PO CONSTIPATION; Start 04/18/17 at 22:00 Zolpidem Tartrate (Ambien) 5 mg QHS PO Last administered on 04/19/17 22:50; Start 04/19/17 at 21:00 Fluticasone Propionate (Flonase) 2 spray DAILY NS Last administered on 09:12; Start 04/19/17 at 09:00 Niacin (Slo-Niacin) 500 mg QHS PO ; Start 04/19/17 at 21:00 Phenylephrine HCl (Hemorrhoidal) 1 supp BID UT ; Start 04/19/17 at 09:00 Potassium Chloride (Klor-Con) 10 meq DAILYWBKFT PO Last administered on 09:10; Start 04/19/17 at 08:00 Multivitamins/ Minerals (I-Nava) 1 tab DAILY PO Last administered on 04/20/17 09:10; Start 04/19/17 at 09:00 Furosemide (Lasix) 20 mg DAILY PO Last administered on 04/20/17 09:09; Start 04/20/17 at 09:00 Diphenhydramine HCl (Benadryl) 25 mg PRN QHS PRN PO INSOMNIA Last administered on 04/19/17 21:35; Start 04/19/17 at 14:00 Acetaminophen/ Hydrocodone Bitart (Lortab 10/325) 0.5 tab PRN Q4HRS PRN PO PAIN ; Start 04/19/17 at 14:00 Acetaminophen/ Hydrocodone Bitart (Lortab 10/325) 1 tab PRN Q4HRS PRN PO PAIN Last administered on 04/20/17 02:07; Start 04/19/17 at 14:15 Active Scripts Active Protonix (Pantoprazole Sodium) 40 Mg Tablet.dr 40 Mg PO DAILY Reported Preservision Areds Tablet (Vit A/Vit C/Vit E/Zinc/Copper) 1 Each Tablet 1 Each PO BID Niacin 500 Mg Capsule (Niacin (Inositol Niacinate)) 500 Mg Capsule 500 Mg PO DAILY Docusate Sodium 100 Mg Capsule 1 Cap PO DAILY PRN Ambien (Zolpidem Tartrate) 5 Mg Tablet 1 Tab PO QHS Vitamin B-12 (Cyanocobalamin (Vitamin B-12)) 1,000 Mcg Tablet 1 Tab PO DAILY Potassium Chloride 10 Meq Capsule.er 10 Meq PO DAILY Polyethylene Glycol 3350 255 Gm Powder 17 Gm PO DAILY PRN Hydrocodone-Apap 10-325 (Hydrocodone Bit/Acetaminophen) 1 Each Tablet 1 Tab PO PRN Q4HRS PRN Preparation H Cream (Phenyleph/Pramoxin/Glycr/W.pet) 26 Gm Cream..g. 1 Ibis RC BID Furosemide 40 Mg Tablet 60 Mg PO DAILY Flonase Allergy Relief (Fluticasone Propionate) 9.9 Ml [place].susp 2 [place] NS DAILY Vitals/I & O Vital Sign - Last 24 Hours 04/19/17 04/19/17 04/19/17 04/19/17 14:59 19:00 20:00 21:43 Temp 98.3 99.3 98.3 99.3 Pulse 80 75 Resp 18 18 18 B/P (MAP) 121/65 (83) 106/62 (77) Pulse Ox 96 97 96 O2 Delivery Room Air Room Air Room Air 04/19/17 04/19/17 04/20/17 04/20/17 22:44 23:00 02:07 03:27 Temp 97.8 97.8 Pulse 74 Resp 18 16 18 B/P (MAP) 128/64 (85) Pulse Ox 97 97 97 O2 Delivery Room Air Room Air 04/20/17 04/20/17 04/20/17 07:00 08:00 11:00 Temp 97.8 97.5 97.8 97.5 Pulse 71 70 Resp 18 18 B/P (MAP) 101/56 (71) 129/63 (85) Pulse Ox 98 O2 Delivery Room Air Room Air Intake and Output 04/19/17 04/19/17 04/20/17 14:59 22:59 06:59 Intake Total 240 ml 690 ml Balance 240 ml 690 ml DESTINEY GUTHRIE III DO Apr 20, 2017 14:59
[2017-04-20 15:00] VITALS: BP 136/75
[2017-04-20 19:00] VITALS: BP 131/53
[2017-04-20] MEDS: diphenhydrAMINE HCL 25 MG CAPSULE PO PRN (22:28)
[2017-04-20] MEDS: ZOLPIDEM 5 MG TABLET. PO SCH (22:28)
[2017-04-20] MEDS: NIACIN ER 500 MG TABLET.ER PO SCH (22:28)
[2017-04-20] MEDS: ENOXAPARIN 40 MG/0.4 ML SYRINGE. SQ SCH (22:29)
[2017-04-20 23:00] VITALS: BP 87/50
[2017-04-21] VITALS (9 sets, daily range): BP systolic 112–131; BP diastolic 58–73
[2017-04-21] MEDS: PHENYLEPHRINE SUPP.RECT. PR SCH ×2 (08:26→21:00)
[2017-04-21] MEDS: CYANOCOBALAMIN (VITAMIN B-12) 1,000 MCG TABLET. PO SCH (08:27)
[2017-04-21] MEDS: PANTOPRAZOLE 40 MG TABLET.DR. PO SCH (08:27)
[2017-04-21] MEDS: FUROSEMIDE 20 MG TABLET PO SCH (08:27)
[2017-04-21] MEDS: MULTIVITAMIN I-VITE TABLET. PO SCH (08:27)
[2017-04-21] MEDS: POTASSIUM CHLORIDE 10 MEQ TABLET.ER. PO SCH (08:27)
[2017-04-21] MEDS: FLUTICASONE 50MCG/NASAL SPRAY 16GM BOTTLE. NS SCH (08:28)
--- NOTE | 2017-04-21 09:25 | PDOC2 ---
CARRIE HARTLEY SOLAR INSTALLATION TECHNICIAN 04/21/17 0925: CARDIAC CONSULT DATE OF CONSULT Date of Consult DATE: 04/21/17 TIME: 09:03 REASON FOR CONSULT Reason for Consult: syncope REFERRING PHYSICIAN Referring Physician: Aracely SOURCE Source: Chart review, Patient HISTORY OF PRESENT ILLNESS HISTORY OF PRESENT ILLNESS This is a pleasant 81 yo male admitted for complains of fall. Reports that he was walking from the kitchen and was in the hallway with a cabinet next to him when he remembers falling hitting his left head and remember falling down. He does not believe he lost consciousness. He could not described to me any symptoms leading to the event. Denies any CP, SOA, palpitations, incontinence. He blames this with use of a"GI cocktail" but at the same time he took this 30 minutes prior to fall and with it ambien and hydrocodone as well. He has been taking 60 mg of lasix daily. Verbalized adequate hydration but he appeared dehydrated when he was admitted. Denies frequent dizziness, vertigo but at the same time he has been unclear in terms of his symptoms. He did fall with no injury about 2 days ago and 1 more for unspecified time but it was within 6 months. PAST MEDICAL HISTORY Past Medical History Cardiovascular: HTN, Other (carotid artery disease ), valvular insufficiency ( mod AI and mild MR) Pulmonary: No pertinent hx GI: GERD, GI bleed, hemorrhoid Heme/Onc: DVT, Anemia, bladder CA with past chemo/radiation Hepatobiliary: No pertinent hx Psych: No pertinent hx Musculoskeletal: low back pain, Other (DJD, spinal stenosis ), OA Rheumatologic: Rheumatoid arthritis Renal/: Chronic renal insuff, Bladder Ca. Endocrine: No pertinent hx Dermatology: No pertinent hx HEENT: cataract, macular degeneration?, [place], allergic rhinitis PAST SURGICAL HISTORY Past Surgical History Total knee replacement (bilateral ), Tonsillectomy (and adenoidectomy ), lumbar decompression and cervical fusion, right carotid endarterectomy, IVC filter, cataract removal, finger amputation FAMILY HISTORY Family History Coronary Artery Disease (both father and brothers) SOCIAL HISTORY Social History Smoke: Quit (in 1991) ALCOHOL: none Drugs: None Lives: with Family CURRENT MEDICATIONS CURRENT MEDICATIONS Current Medications Medications (Trade) Dose Ordered Sig/Carter Route PRN Reason Start Time Stop Time Status Last Admin Dose Admin Enoxaparin Sodium (Lovenox 40mg Syringe) 40 mg Q24H SQ 04/20/17 18:00 04/20/17 22:29 ALLERGIES ALLERGIES: Coded Allergies: Penicillins (Verified Allergy, Intermediate, 06/13/15) tape pulls skin off adhesive tape (Verified Adverse Reaction, Intermediate, tape- pulls skin off, 06/13/15) ROS Review of System 14 point ROS evaluated with pertinent positives noted per HPI PHYSICAL EXAM General: Alert, Oriented X3, Cooperative, No acute distress HEENT: Atraumatic, Mucous membr. moist/pink Lungs: Clear to auscultation, Normal air movement Heart: Regular rate (SR and no significant ectopies), Normal S1, Normal S2, Other (2/6 systolic murmur to LLS border) Abdomen: Soft, No tenderness Extremities: No cyanosis, No edema Skin: No breakdown, No significant lesion Neuro: Strength at 5/5 X4 ext, Sensation intact Psych/Mental Status: Mental status NL, Mood NL MUSCULOSKELETAL: Osteoarthritic changes both hands VITALS VITALS Vital Signs Date Time Temp Pulse Resp B/P (MAP) Pulse Ox O2 Delivery O2 Flow Rate FiO2 04/21/17 07:00 97.7 66 18 117/63 (81) 97 Room Air 97.7 ECHOCARDIOGRAM ECHOCARDIOGRAM <Conclusion> The left ventricular systolic function is normal. The Ejection Fraction is 60-65%. There is normal LV segmental wall motion. Transmitral Doppler flow pattern is Grade I-abnormal relaxation pattern. Moderate aortic regurgitation. Mild mitral regurgitation. Trace tricuspid regurgitation. There is no evidence of significant pericardial effusion. DATE: 09/26/16 1442 STRESS TEST STRESS TEST Conclusion 1. Regadenoson cardioisotope stress test did not show any evidence of ischemia or infarct. 2. Normal left ventricular systolic function with ejection fraction calculated at 74%. 3. Low risk for cardiac events. DATE: 09/27/16 1144 ASSESSMENT/PLAN ASSESSMENT/PLAN 1. Traumatic fall with left scalp laceration: Likely opioid/ambien/ "GI cocktail (with narcotics?)" induced and possibly cervical disease as well that would contribute to problems with proprioception. 2. EMERALD on CKD3: likely inadequate PO hydration with lasix use. 3. Valvular insufficiency: mild MR mod AI 4. HTN: controlled 5. Hx of cervical and lumbar radiculopathy with prior surgeries 6. Hx of Normocytic anemia: Hgb 9.1. Fe deficient 7. Hx of carotid artery disease with right endarterectomy Recommendations 1. Push po hydration. would recommend decreasing lasix dose, will defer to PCP 2. No orthostasis. Doubt any arrhythmias but could not completely rule out. With frequent falls and being unclear of any presyncopal symptoms, will arrange for event monitor. 3. May DC per cardiac perspective, follow up in office 1 week after monitor completion unless pt is going to [facility] then may need to clarify if pt would allow event monitor. Problems: YUMI HARO MD 04/22/17 1033: CARDIAC CONSULT ALLERGIES ALLERGIES: Coded Allergies: Penicillins (Verified Allergy, Intermediate, 06/13/15) tape pulls skin off adhesive tape (Verified Adverse Reaction, Intermediate, tape- pulls skin off, 06/13/15) ASSESSMENT/PLAN ASSESSMENT/PLAN Patient seen and examined 04/21/17. Agree with SWITCH HOUSE OPERATOR's assessment and plan. Fall appears to be mechanical, no LOC Tele did not show any arrhythmias Recent echo showed normal LV function Orthostats negative No further cardiac workup is indicated at this time Thank you for your consultation Problems: CARRIE HARTLEY APRN Apr 21, 2017 09:25 YUMI HARO MD Apr 22, 2017 10:33
--- NOTE | 2017-04-21 12:30 | PDOC ---
PROGRESS NOTES Chief Complaint Chief Complaint s/p fall superficial head injury 1. Generalized weakness 2. EMERALD 3. CHF: grade 1 DD in 08/2016. no acute issues. 4. Anemia: moderate, normocytic, normochromic. suspect chronic inflammation ( CHF, cystitis) and CKD 5. Bladder CA: superficial and invasive; s/p XRT, chemo, surgery and BCG irrigations. 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 6. Syncope History of Present Illness History of Present Illness Pt sitting in chair and talkative. Concerned about dosage of lasix for home meds Vitals Vitals Vital Signs Date Time Temp Pulse Resp B/P (MAP) Pulse Ox O2 Delivery O2 Flow Rate FiO2 04/21/17 11:00 97.9 83 18 126/70 (88) 100 Room Air 97.9 Physical Exam General: Alert, Oriented X3, Cooperative, No acute distress Heart: Regular rate (SR and no significant ectopies), Normal S1, Normal S2, Other (2/6 systolic murmur to LLS border) Lungs: Clear, Other (No acute respiratory distress) Abdomen: Soft, No tenderness Extremities: No cyanosis, No edema Skin: No rashes, No breakdown, No significant lesion Review of Systems Review of Systems Pt anxious about dosage of his lasix. Pt c/o hunger Pt concerned about not being able to take care of him Pt concerned about wound care Assessment and Plan Assessmemt and Plan 1. Scalp abrasion: Wound dressing, F/U in wound clinic 2. Syncope: likely due to ambien + narcotics. Discharge w/ event monitor 3. Gen weakness; OT/PT eval 4. EMERALD: improved, decrease home lasix. 5. CHF: grade 1 DD in 08/2016. no acute issues. 6. Anemia: moderate, normocytic, normochromic. suspect chronic inflammation ( CHF, cystitis) and CKD. 7. Bladder CA: superficial and invasive; s/p XRT, chemo, surgery and BCG irrigations. 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 F/U with [facility] 8. Prophylaxis: heparin Problems: Comment Review of Relevant I have reviewed the following items ayo (where applicable) has been applied. Labs Laboratory Tests Test 04/20/17 06:15 White Blood Count 6.9 x10^3/uL (4.0-11.0) Red Blood Count 3.00 x10^6/uL (4.30-5.70) Hemoglobin 9.1 g/dL (13.0-17.5) Hematocrit 27.6 % (39.0-53.0) Mean Corpuscular Volume 92 fL (79-100) Mean Corpuscular Hemoglobin 30 pg (25-35) Mean Corpuscular Hemoglobin Concent 33 g/dL (31-37) Red Cell Distribution Width 14.5 % (11.5-14.5) Platelet Count 175 x10^3/uL (140-400) Neutrophils (%) (Auto) 66 % (31-73) Lymphocytes (%) (Auto) 20 % (24-48) Monocytes (%) (Auto) 9 % (0-9) Eosinophils (%) (Auto) 5 % (0-3) Basophils (%) (Auto) 0 % (0-3) Neutrophils # (Auto) 4.6 x10^3uL (1.8-7.7) Lymphocytes # (Auto) 1.4 x10^3/uL (1.0-4.8) Monocytes # (Auto) 0.6 x10^3/uL (0.0-1.1) Eosinophils # (Auto) 0.3 x10^3/uL (0.0-0.7) Basophils # (Auto) 0.0 x10^3/uL (0.0-0.2) Reticulocyte Count (auto) 0.9 % (0.5-2.5) Sodium Level 141 mmol/L (136-145) Potassium Level 4.0 mmol/L (3.5-5.1) Chloride Level 104 mmol/L (98-107) Carbon Dioxide Level 30 mmol/L (21-32) Anion Gap 7 (6-14) Blood Urea Nitrogen 28 mg/dL (8-26) Creatinine 1.4 mg/dL (0.7-1.3) Estimated GFR (Cockcroft-Gault) 48.5 Glucose Level 95 mg/dL (70-99) Calcium Level 8.5 mg/dL (8.5-10.1) Iron Level 36 ug/dL (65-175) Total Iron Binding Capacity 223 ug/dL (250-450) Iron Saturation 16 % (15-34) Ferritin 129 ng/mL (26-388) Vitamin B12 Level 561 pg/mL (247-911) Serum Folate 20.33 ng/ml (3.2-20.0) Medications Current Medications Diphtheria/ Tetanus/Acell Pertussis (Boostrix) 0.5 ml ONCE ONCE VAX IM Last administered on 04/18/17 04:26; Start 04/18/17 at 04:00; Stop 04/18/17 at 04:01 ; Status DC Lidocaine/ Epinephrine (Let Topical) 3 ml 1X ONCE TP Last administered on 04/18 03:52; Start 04/18/17 at 04:00; Stop 04/18/17 at 04:01; Status DC Ondansetron HCl (Zofran) 4 mg PRN Q8HRS PRN IV NAUSEA/VOMITING; Start 04/18/17 at 05:30; Stop 04/19/17 at 05:29; Status DC Morphine Sulfate 2 mg PRN Q2HR PRN IV SEVERE PAIN Last administered on 06:02; Start 04/18/17 at 05:30; Stop 04/19/17 at 05:29; Status DC Acetaminophen (Tylenol) 650 mg PRN Q4HRS PRN PO FEVER; Start 04/18/17 at 05:30 ; Stop 04/19/17 at 05:29; Status DC Zolpidem Tartrate (Ambien) 5 mg PRN QHS PRN PO INSOMNIA Last administered on 21:27; Start 04/18/17 at 21:00; Stop 04/19/17 at 13:52; Status DC Docusate Sodium (Colace) 100 mg PRN BID PRN PO CONSTIPATION; Start 04/18/17 at 21:00 Loperamide HCl (Imodium) 2 mg PRN Q1HR PRN PO DIARRHEA; Start 04/18/17 at 21:00 Cyanocobalamin (Vitamin B-12) 1,000 mcg DAILY PO Last administered on 08:27; Start 04/19/17 at 09:00 Docusate Sodium (Colace) 100 mg PRN DAILY PRN PO CONSTIPATION; Start 04/18/17 at 22:00; Status Cancel Furosemide (Lasix) 60 mg DAILY PO Last administered on 04/19/17 08:51; Start 04/19/17 at 09:00; Stop 04/19/17 at 13:52; Status DC Acetaminophen/ Hydrocodone Bitart (Lortab 10/325) 1 tab PRN Q4HRS PRN PO SEVERE PAIN Last administered on 04/19/17 08:56; Start 04/18/17 at 22:00; Stop 04/19/17 at 13:54; Status DC Pantoprazole Sodium (Protonix) 40 mg DAILYAC PO Last administered on 04/21/17 08:27; Start 04/19/17 at 07:30 Polyethylene Glycol (miraLAX PACKET) 17 gm PRN DAILY PRN PO CONSTIPATION; Start 04/18/17 at 22:00 Zolpidem Tartrate (Ambien) 5 mg QHS PO Last administered on 04/20/17 22:28; Start 04/19/17 at 21:00 Fluticasone Propionate (Flonase) 2 spray DAILY NS Last administered on 09:12; Start 04/19/17 at 09:00 Niacin (Slo-Niacin) 500 mg QHS PO Last administered on 04/20/17 22:28; Start 04/19/17 at 21:00 Phenylephrine HCl (Hemorrhoidal) 1 supp BID [facility] ; Start 04/19/17 at 09:00 Potassium Chloride (Klor-Con) 10 meq DAILYWBKFT PO Last administered on 08:27; Start 04/19/17 at 08:00 Multivitamins/ Minerals (I-Nava) 1 tab DAILY PO Last administered on 04/21/17 08:27; Start 04/19/17 at 09:00 Furosemide (Lasix) 20 mg DAILY PO Last administered on 04/21/17 08:27; Start 04/20/17 at 09:00 Diphenhydramine HCl (Benadryl) 25 mg PRN QHS PRN PO INSOMNIA Last administered on 04/20/17 22:28; Start 04/19/17 at 14:00 Acetaminophen/ Hydrocodone Bitart (Lortab 10/325) 0.5 tab PRN Q4HRS PRN PO PAIN ; Start 04/19/17 at 14:00 Acetaminophen/ Hydrocodone Bitart (Lortab 10/325) 1 tab PRN Q4HRS PRN PO PAIN Last administered on 04/20/17 02:07; Start 04/19/17 at 14:15 Enoxaparin Sodium (Lovenox 40mg Syringe) 40 mg Q24H SQ Last administered on 22:29; Start 04/20/17 at 18:00 Active Scripts Active Protonix (Pantoprazole Sodium) 40 Mg Tablet.dr 40 Mg PO DAILY Reported Preservision Areds Tablet (Vit A/Vit C/Vit E/Zinc/Copper) 1 Each Tablet 1 Each PO BID Niacin 500 Mg Capsule (Niacin (Inositol Niacinate)) 500 Mg Capsule 500 Mg PO DAILY Docusate Sodium 100 Mg Capsule 1 Cap PO DAILY PRN Ambien (Zolpidem Tartrate) 5 Mg Tablet 1 Tab PO QHS Vitamin B-12 (Cyanocobalamin (Vitamin B-12)) 1,000 Mcg Tablet 1 Tab PO DAILY Potassium Chloride 10 Meq Capsule.er 10 Meq PO DAILY Polyethylene Glycol 3350 255 Gm Powder 17 Gm PO DAILY PRN Hydrocodone-Apap 10-325 (Hydrocodone Bit/Acetaminophen) 1 Each Tablet 1 Tab PO PRN Q4HRS PRN Preparation H Cream (Phenyleph/Pramoxin/Glycr/W.pet) 26 Gm Cream..g. 1 Ibis RC BID Flonase Allergy Relief (Fluticasone Propionate) 9.9 Ml [place].susp 2 [place] NS DAILY Vitals/I & O Vital Sign - Last 24 Hours 04/20/17 04/20/17 04/20/17 04/20/17 15:00 19:00 19:55 23:00 Temp 98.1 98.4 97.8 98.1 98.4 97.8 Pulse 80 85 74 Resp 18 18 18 B/P (MAP) 136/75 (95) 131/53 (79) 87/50 (62) Pulse Ox 100 100 100 O2 Delivery Room Air Room Air Room Air Room Air 04/21/17 04/21/17 04/21/17 04/21/17 03:00 07:00 08:00 10:06 Temp 98.1 97.7 98.1 97.7 Pulse 73 66 80 Resp 18 18 18 B/P (MAP) 125/64 (84) 117/63 (81) 126/63 (84) Pulse Ox 97 97 96 O2 Delivery Room Air Room Air Room Air Room Air 8/2204/21/17 04/21/17 04/21/17 10:06 10:07 10:08 11:00 Temp 97.9 97.9 Pulse 85 87 93 83 Resp 18 18 18 18 B/P (MAP) 121/68 (85) 114/58 (76) 115/64 (81) 126/70 (88) Pulse Ox 98 100 98 100 O2 Delivery Room Air Room Air Room Air Room Air Intake and Output 04/20/17 04/20/17 04/21/17 15:00 23:00 07:00 Intake Total 600 ml 1300 ml Balance 600 ml 1300 ml DESTINEY GUTHRIE III DO Apr 21, 2017 12:30
[2017-04-21] MEDS: ENOXAPARIN 40 MG/0.4 ML SYRINGE. SQ SCH (17:14)
[2017-04-21] MEDS: ZOLPIDEM 5 MG TABLET. PO SCH (21:56)
[2017-04-21] MEDS: NIACIN ER 500 MG TABLET.ER PO SCH (21:56)
[2017-04-21] MEDS: diphenhydrAMINE HCL 25 MG CAPSULE PO PRN (21:56)
[2017-04-22 05:16] LABS: BASO % 0 % (0-3); EOS % 5 % (0-3); HEMATOCRIT 26.2 % (39.0-53.0); HEMOGLOBIN 8.7 g/dL (13.0-17.5); LYMPH # 1.4 x10^3/uL (1.0-4.8); LYMPH % 18 % (24-48); MEAN CORPUSCULAR HEMOGLOBIN 31 pg (25-35); MEAN CORPUSCULAR HGB CONC 33 g/dL (31-37); MEAN CORPUSCULAR VOLUME 92 fL (79-100); MONO % 10 % (0-9); NEUT % 66 % (31-73); PLATELET COUNT 178 x10^3/uL (140-400); RED BLOOD COUNT 2.84 x10^6/uL (4.30-5.70); RED CELL DISTRIBUTION WIDTH 14.4 % (11.5-14.5); WHITE BLOOD COUNT 7.6 x10^3/uL (4.0-11.0)
[2017-04-22 06:00] LABS: CALCIUM 8.6 mg/dL (8.5-10.1); CREATININE 1.4 mg/dL (0.7-1.3); GFR 48.5; POTASSIUM 3.9 mmol/L (3.5-5.1)
[2017-04-22 07:00] VITALS: BP 132/69
[2017-04-22] MEDS: PHENYLEPHRINE SUPP.RECT. PR SCH (09:00)
[2017-04-22] MEDS: MULTIVITAMIN I-VITE TABLET. PO SCH (09:14)
[2017-04-22] MEDS: PANTOPRAZOLE 40 MG TABLET.DR. PO SCH (09:14)
[2017-04-22] MEDS: FUROSEMIDE 20 MG TABLET PO SCH (09:14)
[2017-04-22] MEDS: CYANOCOBALAMIN (VITAMIN B-12) 1,000 MCG TABLET. PO SCH (09:15)
[2017-04-22] MEDS: POTASSIUM CHLORIDE 10 MEQ TABLET.ER. PO SCH (09:15)
[2017-04-22] MEDS: FLUTICASONE 50MCG/NASAL SPRAY 16GM BOTTLE. NS SCH (09:17)
[2017-04-22 10:51] VITALS: BP 114/63
--- NOTE | 2017-04-22 11:46 | PDOC ---
PROGRESS NOTES Chief Complaint Chief Complaint s/p fall superficial head injury 1. Generalized weakness 2. EMERALD 3. CHF: grade 1 DD in 08/2016. no acute issues. 4. Anemia: moderate, normocytic, normochromic. suspect chronic inflammation ( CHF, cystitis) and CKD 5. Bladder CA: superficial and invasive; s/p XRT, chemo, surgery and BCG irrigations. 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 6. Syncope History of Present Illness History of Present Illness Pt was sitting up in chair by bed and conversing. Mental status at baseline. Walking well. Pt concerned about heart monitor but understands purpose of it and will wear it. Vitals Vitals Vital Signs Date Time Temp Pulse Resp B/P (MAP) Pulse Ox O2 Delivery O2 Flow Rate FiO2 04/22/17 10:51 98.2 79 18 114/63 (80) 100 Room Air 98.2 Physical Exam General: Alert, Oriented X3, Cooperative, No acute distress Heart: Regular rate (SR and no significant ectopies), Normal S1, Normal S2, Other (2/6 systolic murmur to LLS border) Lungs: Clear, Other (No acute respiratory distress noted) Abdomen: Soft, No tenderness Extremities: No cyanosis, No edema Skin: No rashes, No breakdown, No significant lesion Labs LABS Laboratory Tests Test 04/22/17 04:44 White Blood Count 7.6 x10^3/uL (4.0-11.0) Red Blood Count 2.84 x10^6/uL (4.30-5.70) Hemoglobin 8.7 g/dL (13.0-17.5) Hematocrit 26.2 % (39.0-53.0) Mean Corpuscular Volume 92 fL (79-100) Mean Corpuscular Hemoglobin 31 pg (25-35) Mean Corpuscular Hemoglobin Concent 33 g/dL (31-37) Red Cell Distribution Width 14.4 % (11.5-14.5) Platelet Count 178 x10^3/uL (140-400) Neutrophils (%) (Auto) 66 % (31-73) Lymphocytes (%) (Auto) 18 % (24-48) Monocytes (%) (Auto) 10 % (0-9) Eosinophils (%) (Auto) 5 % (0-3) Basophils (%) (Auto) 0 % (0-3) Neutrophils # (Auto) 5.1 x10^3uL (1.8-7.7) Lymphocytes # (Auto) 1.4 x10^3/uL (1.0-4.8) Monocytes # (Auto) 0.8 x10^3/uL (0.0-1.1) Eosinophils # (Auto) 0.4 x10^3/uL (0.0-0.7) Basophils # (Auto) 0.0 x10^3/uL (0.0-0.2) Sodium Level 141 mmol/L (136-145) Potassium Level 3.9 mmol/L (3.5-5.1) Chloride Level 105 mmol/L (98-107) Carbon Dioxide Level 27 mmol/L (21-32) Anion Gap 9 (6-14) Blood Urea Nitrogen 25 mg/dL (8-26) Creatinine 1.4 mg/dL (0.7-1.3) Estimated GFR (Cockcroft-Gault) 48.5 Glucose Level 103 mg/dL (70-99) Calcium Level 8.6 mg/dL (8.5-10.1) Review of Systems Review of Systems C/o hunger Ambulatory status improving. Assessment and Plan Assessmemt and Plan 1. Scalp abrasion: Wound dressing 2. Syncope: likely due to ambien + narcotics. Discharge w/ cardiac event monitor 3. Gen weakness; OT/PT 4. EMERALD: improved, decreased home lasix. 5. CHF: grade 1 DD in 08/2016. No acute issues noted 6. Anemia: moderate, normocytic, normochromic. suspect chronic inflammation ( CHF, cystitis) and CKD. 7. Bladder CA: superficial and invasive; s/p XRT, chemo, surgery and BCG irrigations. 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 F/U with [facility] 8. Prophylaxis: heparin d/c w/ home health Problems: Comment Review of Relevant I have reviewed the following items ayo (where applicable) has been applied. Labs Laboratory Tests Test 04/22/17 04:44 White Blood Count 7.6 x10^3/uL (4.0-11.0) Red Blood Count 2.84 x10^6/uL (4.30-5.70) Hemoglobin 8.7 g/dL (13.0-17.5) Hematocrit 26.2 % (39.0-53.0) Mean Corpuscular Volume 92 fL (79-100) Mean Corpuscular Hemoglobin 31 pg (25-35) Mean Corpuscular Hemoglobin Concent 33 g/dL (31-37) Red Cell Distribution Width 14.4 % (11.5-14.5) Platelet Count 178 x10^3/uL (140-400) Neutrophils (%) (Auto) 66 % (31-73) Lymphocytes (%) (Auto) 18 % (24-48) Monocytes (%) (Auto) 10 % (0-9) Eosinophils (%) (Auto) 5 % (0-3) Basophils (%) (Auto) 0 % (0-3) Neutrophils # (Auto) 5.1 x10^3uL (1.8-7.7) Lymphocytes # (Auto) 1.4 x10^3/uL (1.0-4.8) Monocytes # (Auto) 0.8 x10^3/uL (0.0-1.1) Eosinophils # (Auto) 0.4 x10^3/uL (0.0-0.7) Basophils # (Auto) 0.0 x10^3/uL (0.0-0.2) Sodium Level 141 mmol/L (136-145) Potassium Level 3.9 mmol/L (3.5-5.1) Chloride Level 105 mmol/L (98-107) Carbon Dioxide Level 27 mmol/L (21-32) Anion Gap 9 (6-14) Blood Urea Nitrogen 25 mg/dL (8-26) Creatinine 1.4 mg/dL (0.7-1.3) Estimated GFR (Cockcroft-Gault) 48.5 Glucose Level 103 mg/dL (70-99) Calcium Level 8.6 mg/dL (8.5-10.1) Laboratory Tests Test 04/22/17 04:44 White Blood Count 7.6 x10^3/uL (4.0-11.0) Red Blood Count 2.84 x10^6/uL (4.30-5.70) Hemoglobin 8.7 g/dL (13.0-17.5) Hematocrit 26.2 % (39.0-53.0) Mean Corpuscular Volume 92 fL (79-100) Mean Corpuscular Hemoglobin 31 pg (25-35) Mean Corpuscular Hemoglobin Concent 33 g/dL (31-37) Red Cell Distribution Width 14.4 % (11.5-14.5) Platelet Count 178 x10^3/uL (140-400) Neutrophils (%) (Auto) 66 % (31-73) Lymphocytes (%) (Auto) 18 % (24-48) Monocytes (%) (Auto) 10 % (0-9) Eosinophils (%) (Auto) 5 % (0-3) Basophils (%) (Auto) 0 % (0-3) Neutrophils # (Auto) 5.1 x10^3uL (1.8-7.7) Lymphocytes # (Auto) 1.4 x10^3/uL (1.0-4.8) Monocytes # (Auto) 0.8 x10^3/uL (0.0-1.1) Eosinophils # (Auto) 0.4 x10^3/uL (0.0-0.7) Basophils # (Auto) 0.0 x10^3/uL (0.0-0.2) Sodium Level 141 mmol/L (136-145) Potassium Level 3.9 mmol/L (3.5-5.1) Chloride Level 105 mmol/L (98-107) Carbon Dioxide Level 27 mmol/L (21-32) Anion Gap 9 (6-14) Blood Urea Nitrogen 25 mg/dL (8-26) Creatinine 1.4 mg/dL (0.7-1.3) Estimated GFR (Cockcroft-Gault) 48.5 Glucose Level 103 mg/dL (70-99) Calcium Level 8.6 mg/dL (8.5-10.1) Medications Current Medications Diphtheria/ Tetanus/Acell Pertussis (Boostrix) 0.5 ml ONCE ONCE VAX IM Last administered on 04/18/17 04:26; Start 04/18/17 at 04:00; Stop 04/18/17 at 04:01 ; Status DC Lidocaine/ Epinephrine (Let Topical) 3 ml 1X ONCE TP Last administered on 04/18 03:52; Start 04/18/17 at 04:00; Stop 04/18/17 at 04:01; Status DC Ondansetron HCl (Zofran) 4 mg PRN Q8HRS PRN IV NAUSEA/VOMITING; Start 04/18/17 at 05:30; Stop 04/19/17 at 05:29; Status DC Morphine Sulfate 2 mg PRN Q2HR PRN IV SEVERE PAIN Last administered on 06:02; Start 04/18/17 at 05:30; Stop 04/19/17 at 05:29; Status DC Acetaminophen (Tylenol) 650 mg PRN Q4HRS PRN PO FEVER; Start 04/18/17 at 05:30 ; Stop 04/19/17 at 05:29; Status DC Zolpidem Tartrate (Ambien) 5 mg PRN QHS PRN PO INSOMNIA Last administered on 21:27; Start 04/18/17 at 21:00; Stop 04/19/17 at 13:52; Status DC Docusate Sodium (Colace) 100 mg PRN BID PRN PO CONSTIPATION; Start 04/18/17 at 21:00 Loperamide HCl (Imodium) 2 mg PRN Q1HR PRN PO DIARRHEA; Start 04/18/17 at 21:00 Cyanocobalamin (Vitamin B-12) 1,000 mcg DAILY PO Last administered on 09:15; Start 04/19/17 at 09:00 Docusate Sodium (Colace) 100 mg PRN DAILY PRN PO CONSTIPATION; Start 04/18/17 at 22:00; Status Cancel Furosemide (Lasix) 60 mg DAILY PO Last administered on 04/19/17 08:51; Start 04/19/17 at 09:00; Stop 04/19/17 at 13:52; Status DC Acetaminophen/ Hydrocodone Bitart (Lortab 10/325) 1 tab PRN Q4HRS PRN PO SEVERE PAIN Last administered on 04/19/17 08:56; Start 04/18/17 at 22:00; Stop 04/19/17 at 13:54; Status DC Pantoprazole Sodium (Protonix) 40 mg DAILYAC PO Last administered on 04/22/17 09:14; Start 04/19/17 at 07:30 Polyethylene Glycol (miraLAX PACKET) 17 gm PRN DAILY PRN PO CONSTIPATION; Start 04/18/17 at 22:00 Zolpidem Tartrate (Ambien) 5 mg QHS PO Last administered on 04/21/17 21:56; Start 04/19/17 at 21:00 Fluticasone Propionate (Flonase) 2 spray DAILY NS Last administered on 09:17; Start 04/19/17 at 09:00 Niacin (Slo-Niacin) 500 mg QHS PO Last administered on 04/21/17 21:56; Start 04/19/17 at 21:00 Phenylephrine HCl (Hemorrhoidal) 1 supp BID DC ; Start 04/19/17 at 09:00 Potassium Chloride (Klor-Con) 10 meq DAILYWBKFT PO Last administered on 09:15; Start 04/19/17 at 08:00 Multivitamins/ Minerals (I-Nava) 1 tab DAILY PO Last administered on 04/22/17 09:14; Start 04/19/17 at 09:00 Furosemide (Lasix) 20 mg DAILY PO Last administered on 04/22/17 09:14; Start 04/20/17 at 09:00 Diphenhydramine HCl (Benadryl) 25 mg PRN QHS PRN PO INSOMNIA Last administered on 04/21/17 21:56; Start 04/19/17 at 14:00 Acetaminophen/ Hydrocodone Bitart (Lortab 10/325) 0.5 tab PRN Q4HRS PRN PO PAIN ; Start 04/19/17 at 14:00 Acetaminophen/ Hydrocodone Bitart (Lortab 10/325) 1 tab PRN Q4HRS PRN PO PAIN Last administered on 04/20/17 02:07; Start 04/19/17 at 14:15 Enoxaparin Sodium (Lovenox 40mg Syringe) 40 mg Q24H SQ Last administered on 17:14; Start 04/20/17 at 18:00 Active Scripts Active Protonix (Pantoprazole Sodium) 40 Mg Tablet.dr 40 Mg PO DAILY Reported Preservision Areds Tablet (Vit A/Vit C/Vit E/Zinc/Copper) 1 Each Tablet 1 Each PO BID Niacin 500 Mg Capsule (Niacin (Inositol Niacinate)) 500 Mg Capsule 500 Mg PO DAILY Docusate Sodium 100 Mg Capsule 1 Cap PO DAILY PRN Ambien (Zolpidem Tartrate) 5 Mg Tablet 1 Tab PO QHS Vitamin B-12 (Cyanocobalamin (Vitamin B-12)) 1,000 Mcg Tablet 1 Tab PO DAILY Potassium Chloride 10 Meq Capsule.er 10 Meq PO DAILY Polyethylene Glycol 3350 255 Gm Powder 17 Gm PO DAILY PRN Hydrocodone-Apap 10-325 (Hydrocodone Bit/Acetaminophen) 1 Each Tablet 1 Tab PO PRN Q4HRS PRN Preparation H Cream (Phenyleph/Pramoxin/Glycr/W.pet) 26 Gm Cream..g. 1 Ibis RC BID Flonase Allergy Relief (Fluticasone Propionate) 9.9 Ml [place].susp 2 [place] NS DAILY Vitals/I & O Vital Sign - Last 24 Hours 04/21/17 04/21/17 04/21/17 04/21/17 15:00 19:00 20:00 22:42 Temp 98.1 97.4 97.4 98.1 97.4 97.4 Pulse 73 87 87 Resp 18 18 18 B/P (MAP) 112/63 (79) 131/73 (92) 125/72 (89) Pulse Ox 100 99 97 O2 Delivery Room Air Room Air Room Air Room Air 04/22/17 04/22/17 04/22/17 07:00 08:00 10:51 Temp 98.2 98.2 Pulse 73 79 Resp 18 18 B/P (MAP) 132/69 (90) 114/63 (80) Pulse Ox 100 100 O2 Delivery Room Air Room Air Room Air Intake and Output 04/21/17 04/21/17 04/22/17 15:00 23:00 07:00 Intake Total 360 ml 480 ml 400 ml Balance 360 ml 480 ml 400 ml DESTINEY GUTHRIE III DO Apr 22, 2017 11:46
[2017-04-22] MEDS ORDERED: FURO20TA3 PO (13:51)
[2017-04-22 14:52] VITALS: BP 112/70
== END 2017-04-22 15:48 | disposition home health service (06) | DRG 683 ==
LOC: ER 02:31 → 5 SOUTH 05:31
PROVIDERS: ADMIT Internal Medicine; ATTEND Internal Medicine
DX: N17.0 Acute kidney failure with tubular necrosis (principal); I13.0 Hypertensive heart and chronic kidney disease with heart failure and stage 1 through stage 4 chronic kidney disease, or unspecified chronic kidney disease; C67.9 Malignant neoplasm of bladder, unspecified; I50.9 Heart failure, unspecified; R55 Syncope and collapse; D64.9 Anemia, unspecified; H35.30 Unspecified macular degeneration; S01.01XA Laceration without foreign body of scalp, initial encounter; W19.XXXA Unspecified fall, initial encounter; N18.3 Chronic kidney disease, stage 3 (moderate); I73.9 Peripheral vascular disease, unspecified; K21.9 Gastro-esophageal reflux disease without esophagitis; M06.9 Rheumatoid arthritis, unspecified; Z82.49 Family history of ischemic heart disease and other diseases of the circulatory system; Z92.3 Personal history of irradiation; Z96.653 Presence of artificial knee joint, bilateral; H26.9 Unspecified cataract; M19.90 Unspecified osteoarthritis, unspecified site; Z90.89 Acquired absence of other organs; Z88.0 Allergy status to penicillin; Z89.029 Acquired absence of unspecified finger(s); Z98.49 Cataract extraction status, unspecified eye; T40.605A Adverse effect of unspecified narcotics, initial encounter
CPT/HCPCS: 36415; 70450; 72125; 80048; 80053; 81001; 82607; 82728; 82746; 83540; 83550; 83880; 84484; 85025; 85045; 85610; 85730; 90715; 93005; 96374; J1650; J2270; Q0163; 97530; 99285-25

== ENCOUNTER → 2017-04-27 | Outpatient (CLI) | payer MEDICARE ==
[2017-04-22 14:52] VITALS: BP 112/70
[~2017-04-27] MED LIST changes: +FURO20TA3 PO; +NIAC500C6 PO; +POLY255P PO; +POTASSIUM CHLO10 MEQ PO; +VIT1TABL34 PO; +ZOLP5TAB PO
== END | disposition home or self-care (01) ==
LOC: PMGWOUND 11:34
PROVIDERS: ATTEND Emergency Medicine Undersea and Hyperbaric Medicine
DX: S01.00XA Unspecified open wound of scalp, initial encounter (principal); N30.41 Irradiation cystitis with hematuria; K62.7 Radiation proctitis; M19.90 Unspecified osteoarthritis, unspecified site; I13.2 Hypertensive heart and chronic kidney disease with heart failure and with stage 5 chronic kidney disease, or end stage renal disease; N18.6 End stage renal disease; I50.9 Heart failure, unspecified; Z99.2 Dependence on renal dialysis; K21.9 Gastro-esophageal reflux disease without esophagitis; M06.9 Rheumatoid arthritis, unspecified; Z86.718 Personal history of other venous thrombosis and embolism; Z85.51 Personal history of malignant neoplasm of bladder; Z89.111 Acquired absence of right hand; Z87.891 Personal history of nicotine dependence; W19.XXXA Unspecified fall, initial encounter; Y93.89 Activity, other specified; Y92.89 Other specified places as the place of occurrence of the external cause; Y99.8 Other external cause status
CPT/HCPCS: 97597

== ENCOUNTER → 2017-05-05 | Outpatient (CLI) | payer MEDICARE ==
[2017-04-22 14:52] VITALS: BP 112/70
== END | disposition home or self-care (01) ==
LOC: PMGWOUND 12:48
PROVIDERS: ATTEND Emergency Medicine Undersea and Hyperbaric Medicine
DX: S01.00XD Unspecified open wound of scalp, subsequent encounter (principal); N30.41 Irradiation cystitis with hematuria; K62.7 Radiation proctitis; K21.9 Gastro-esophageal reflux disease without esophagitis; I12.0 Hypertensive chronic kidney disease with stage 5 chronic kidney disease or end stage renal disease; N18.6 End stage renal disease; M06.9 Rheumatoid arthritis, unspecified; M19.90 Unspecified osteoarthritis, unspecified site; I73.9 Peripheral vascular disease, unspecified; Z99.2 Dependence on renal dialysis; Z85.51 Personal history of malignant neoplasm of bladder; Z87.891 Personal history of nicotine dependence; Z86.718 Personal history of other venous thrombosis and embolism; Z89.111 Acquired absence of right hand; X58.XXXD Exposure to other specified factors, subsequent encounter
CPT/HCPCS: 97597

== ENCOUNTER → 2017-05-11 | Outpatient (CLI) | payer MEDICARE ==
[2017-04-22 14:52] VITALS: BP 112/70
[~2017-05-11] MED LIST changes: -OXYC5TAB PO; +OXYC5TAB95 PO
== END | disposition home or self-care (01) ==
LOC: PMGWOUND 12:58
PROVIDERS: ATTEND Emergency Medicine Undersea and Hyperbaric Medicine
DX: S01.00XD Unspecified open wound of scalp, subsequent encounter (principal); K62.7 Radiation proctitis; K21.9 Gastro-esophageal reflux disease without esophagitis; I13.2 Hypertensive heart and chronic kidney disease with heart failure and with stage 5 chronic kidney disease, or end stage renal disease; N18.6 End stage renal disease; I50.9 Heart failure, unspecified; N30.41 Irradiation cystitis with hematuria; M06.9 Rheumatoid arthritis, unspecified; M19.90 Unspecified osteoarthritis, unspecified site; I73.9 Peripheral vascular disease, unspecified; Z89.111 Acquired absence of right hand; Z87.891 Personal history of nicotine dependence; Z85.51 Personal history of malignant neoplasm of bladder; Z86.718 Personal history of other venous thrombosis and embolism; Z99.2 Dependence on renal dialysis; X58.XXXD Exposure to other specified factors, subsequent encounter
CPT/HCPCS: 99214

== ENCOUNTER → 2017-05-25 | Outpatient (CLI) | payer MEDICARE | END | disposition home or self-care (01) | LOC: PMGWOUND 12:54 | PROVIDERS: ATTEND Emergency Medicine Undersea and Hyperbaric Medicine | DX: S01.00XD Unspecified open wound of scalp, subsequent encounter (principal); N30.41 Irradiation cystitis with hematuria; K62.7 Radiation proctitis; K21.9 Gastro-esophageal reflux disease without esophagitis; E11.22 Type 2 diabetes mellitus with diabetic chronic kidney disease; I13.2 Hypertensive heart and chronic kidney disease with heart failure and with stage 5 chronic kidney disease, or end stage renal disease; N18.6 End stage renal disease; I50.9 Heart failure, unspecified; E11.51 Type 2 diabetes mellitus with diabetic peripheral angiopathy without gangrene; M06.9 Rheumatoid arthritis, unspecified; Z85.51 Personal history of malignant neoplasm of bladder; Z87.891 Personal history of nicotine dependence; Z86.718 Personal history of other venous thrombosis and embolism; Z99.2 Dependence on renal dialysis; Z89.111 Acquired absence of right hand; Z79.4 Long term (current) use of insulin; X58.XXXD Exposure to other specified factors, subsequent encounter | CPT/HCPCS: 99212 ==

== ENCOUNTER → 2017-07-15 | Outpatient (CLI) | payer MEDICARE ==
--- NOTE | 2017-07-15 12:16 | KCIC ---
MRI Cervical Spine Without Contrast History: Bilateral lower extremity radiculopathy, previous surgery, chronic neck pain Technique: Multiplanar, multi sequential noncontrast MR imaging was performed of the cervical spine. Comparison: None available Findings: Cervical cord caliber is within normal limits without focal signal abnormality. There has been anterior cervical fusion C3, C4, C5, C6 with incorporated interbody grafts at these levels. There is advanced degenerative disc disease C6-7 and C7-T1. There is grade 1 anterior spondylolisthesis C7-T1. There is straightening of the cervical spine, mild reversal of the lordotic curvature at C3-4. There is no significant abnormality cervical medullary junction. There is no significant marrow edema. C2-C3: There is fairly severe left facet degenerative change. There is mild buckling of the ligamentum flavum. Central canal is minimally narrowed to 9 to 10 mm. There is minimal narrowing of the left neural foramen, right neural foramen adequate. C3-C4: There is moderate facet degenerative change. There is minimal posterior osteophyte formation. Central canal is borderline 10 mm. There is right uncovertebral degenerative change. There is moderate to severe right and [id number] left neural foramina compromise. C4-C5: There is posterior osteophyte formation. Central canal is minimally narrowed to 8 to 9 mm. There is bilateral facet hypertrophic change somewhat greater on the left. There are uncovertebral osteophytes. There is moderate left and mild to moderate right neural foramina compromise. C5-C6: There is posterior osteophytic bridging. Central canal is minimally narrowed to 9 to 10 mm. There is bilateral facet degenerative change, also uncovertebral osteophytes. There is fairly severe right and moderate left neural foramina compromise. C6-C7: There are minimal posterior osteophytes. Central canal is adequate 11 mm. There is bilateral facet degenerative change. There is minimal uncovertebral degenerative change. There is moderate to severe left and mild right neural foramina compromise. C7-T1: There is minimal disc osteophyte complex. Central canal is minimally narrowed to 9 to 10 mm. There is mild uncovertebral degenerative change, also bilateral facet degenerative change. There is moderate to severe left and mild to moderate right neural foramina compromise. Impression: 1. There is mild spinal stenosis as described C2-3, C4-5, C5-C6, C7-T1. 2. There is multilevel cervical neural foramina compromise due to facet and uncovertebral degenerative change. 3. There has been anterior cervical fusion C3-C6 with incorporated interbody grafts at these levels. There is degenerative disc disease at C6-7 and C7-T1. Electronically signed by: Dom Lindsey MD (07/15/2017 12:13 PM) [email or web address]
--- NOTE | 2017-07-15 12:32 | KCIC ---
MRI Lumbar Spine without contrast History: Low back pain, left hip and knee pain Technique: Multiplanar, multi sequential noncontrast MR imaging was performed of the lumbar spine. Contrast: None Comparison: November 07, 2013 Findings: There has been interval surgery. There is now posterolateral fusion hardware with bilateral pedicle screws attached to vertical rods at L5, L4, L3. Previously there were left pedicle screws at L4-L5. There is again incorporated interbody graft L4-5. There is again partial interbody fusion L5-S1. There is moderate to degenerative disc disease at L2-3 and to lesser degree at L1-2 also of visualized inferior thoracic levels. There is similar grade 1 anterior spondylolisthesis L4-5. There is greater degree of superior L4 endplate concavity without associated marrow edema, also larger Schmorl's nodes L2-3. There are multilevel Schmorl's nodes. There is minimal posterior subluxation T12 relative L1. Conus terminates at L1. There is again mild L2-3 endplate edema probably reactive/degenerative in etiology. Not fully included, there has been development of fairly prominent edema of the bilateral sacral ala greater on the right, also some edema apparently of the iliac bones. There is mild right hydronephrosis or renal pelvocaliectasis. There is probable small left renal cyst. T11-12: There is mild buckling of the ligamentum flavum. There is minimal narrowing of the far left lateral recess. There is [id number] posterior narrowing of the neural foramina greater on the left by facets. T12-L1: There is minimal disc osteophyte complex and bulge superimposed on the posteriorly subluxed T12 vertebral body margin. There is mild facet hypertrophic change and buckling of the ligamentum flavum. There is minimal narrowing of the far right lateral recess. There is mild left and moderate right neural foramina compromise by facets. L1-L2: There is again extrusion extending slightly below the intervertebral disc space eccentric to the right lateral recess with indentation upon the ventral thecal sac, moderate narrowing of the far right lateral recess. There is again moderate buckling of the ligamentum flavum and facet degenerative change. Left neural foramen is adequate, mild to moderate narrowing of the right neural foramen. L2-L3: There is again right laminectomy defect. There is left facet hypertrophic change and mild buckling of the ligamentum flavum on the left. There is again minimal disc osteophyte complex and shallow bulge/protrusion. Spinal canal is overall adequate. There is mild neural foramina compromise greater on the right. L3-L4: There has been interval posterior decompression. There is nonspecific fluid collection posteriorly at site of posterior decompression, on the order of 2.1 cm AP by 1.7 cm transverse by 3 cm CC. This does not result in significant mass effect upon the posterior aspect of the thecal sac. There is again facet hypertrophic change. There is minimal narrowing of the far lateral recesses bilaterally, previously a greater degree of spinal stenosis present. Right neural foramen is overall adequate, very mild narrowing of the left neural foramen. L4-L5: There is again deformity of the thecal sac with mild left lateral recess stenosis as seen previously. There is some artifact in the region of the neural foramina, probable minimal narrowing greater on the left as seen previously. L5-S1: There is facet degenerative change. Spinal canal remains adequate. There is probable mild narrowing of the left neural foramen as seen previously, limited evaluation due to artifact from hardware. Right neural foramen is overall adequate. Impression: 1. Not fully included, there are areas of abnormal edema of the visualized sacrum bilaterally, also of the iliac bones. Given pattern, findings may be due to acute sacral insufficiency fractures. 2. There has been posterolateral fusion L3-L5. There has been posterior decompression L3-4, nonspecific fluid collection posteriorly at site of posterior decompression of uncertain sterility. 3. There is variable lateral recess stenosis as described greatest on the right at L1-2. 4. There is mild/moderate neural foramina compromise greatest on the right at T12-L1 and L1-2 and bilaterally at T11-12. 5. There is multilevel degenerative disc disease. Electronically signed by: Dom Lindsey MD (07/15/2017 12:27 PM) [email or web address]
== END | disposition home or self-care (01) ==
LOC: KCIC MRI 10:59
PROVIDERS: ATTEND Family Medicine
DX: M48.02 Spinal stenosis, cervical region (principal); M50.323 Other cervical disc degeneration at C6-C7 level; M48.061 Spinal stenosis, lumbar region without neurogenic claudication; M43.16 Spondylolisthesis, lumbar region
CPT/HCPCS: 72141; 72148

== ENCOUNTER → 2017-08-03 | Outpatient (CLI) | payer MEDICARE ==
--- NOTE | 2017-08-03 15:46 | KCIC ---
MR of the sacrum HISTORY: Sacral fractures. Fell backwards a few weeks ago. Pain. TECHNIQUE: Standard multiplanar sequences. FINDINGS: Extensive signal abnormality within the iliac bones bilaterally, along the sacroiliac joints. There is also a corresponding signal abnormality within the right and left sacrum. Findings are most compatible with extensive fractures. In correlation with the clinical history, there could be a component of posttraumatic etiology, but note that fractures were also apparent on CT scan of December 04, 2016. The sacroiliac joints are intact. There is focal angulation of the sacrum at the S2 level, compatible with chronic fracture deformity. This is stable since the prior CT scan. No abnormal soft tissue mass or fluid collection. Abnormal marrow signal extends through the partially visualized more anterior iliac bones as well. Fusion of the lower lumbar spine, is identified, was more thoroughly evaluated on the recent MR lumbar spine July 15, 2017. IMPRESSION: Fractures of the bilateral iliac bones and sacrum, marginating the sacroiliac joints. There is a chronic component to the fractures, as supported by the CT scan of December 04, 2016. These are likely posttraumatic, either due to macro trauma or insufficiency fractures. Electronically signed by: Taj Dowling MD (08/03/2017 3:43 PM) [facility]-[email or web address]
== END | disposition home or self-care (01) ==
LOC: KCIC MRI 13:34
PROVIDERS: ATTEND Neurological Surgery
DX: S32.19XA Other fracture of sacrum, initial encounter for closed fracture (principal); X58.XXXA Exposure to other specified factors, initial encounter; Y93.89 Activity, other specified; Y92.89 Other specified places as the place of occurrence of the external cause; Y99.8 Other external cause status
CPT/HCPCS: 72195

== ENCOUNTER → 2017-08-20 | Outpatient (CLI) | payer MEDICARE ==
[~2017-08-20] VITALS: Ht 162.6 cm; Wt 68.0 kg
[2017-08-20] VITALS (21 sets, daily range): BP systolic 111–147; BP diastolic 61–82
[~2017-08-20] MED LIST changes: +LIDOCAINE WITH 8.4% SOD BICARB 3 ML DISP.SYRIN. IJ ONE; +MIDAZOLAM HCL/PF 5 MG/5 ML VIAL. IV ONE; +MIDAZOLAM HCL/PF 5 MG/5 ML VIAL. ONE; +VANCOMYCIN 1GM IVPB FOR OMNI 250 ML IV ONE; +VANCOMYCIN 1GM IVPB FOR OMNI 250 ML ONE; +fentaNYL PF VIAL 250 MCG/5 ML VIAL IV ONE; +fentaNYL PF VIAL 250 MCG/5 ML VIAL ONE
[2017-08-20 10:40] LABS: BASO % 1 % (0-3); EOS % 4 % (0-3); HEMATOCRIT 34.5 % (39.0-53.0); HEMOGLOBIN 11.3 g/dL (13.0-17.5); LYMPH # 1.1 x10^3/uL (1.0-4.8); LYMPH % 20 % (24-48); MEAN CORPUSCULAR HEMOGLOBIN 29 pg (25-35); MEAN CORPUSCULAR HGB CONC 33 g/dL (31-37); MEAN CORPUSCULAR VOLUME 88 fL (79-100); MONO % 10 % (0-9); NEUT % 65 % (31-73); PLATELET COUNT 188 x10^3/uL (140-400); RED BLOOD COUNT 3.93 x10^6/uL (4.30-5.70); RED CELL DISTRIBUTION WIDTH 16.7 % (11.5-14.5); WHITE BLOOD COUNT 5.4 x10^3/uL (4.0-11.0)
[2017-08-20 10:49] LABS: INR 1.1 (0.8-1.1); PROTHROMBIN TIME PATIENT 13.4 SEC (11.7-14.0)
--- NOTE | 2017-08-20 14:18 | RAD ---
Bilateral percutaneous CT-guided Sacroplasty 08/20/2017 Indication: Bilateral sacral fractures, consistent with insufficiency fractures. Multiple other pelvic fractures noted. Patient has chronic pelvic pain. Pain is refractory to conservative measures including oral pain medications, therapy, and interventional pain management procedures. Discussion: The risks and benefits of the procedure were discussed the patient . Informed consent was obtained. A timeout procedure was performed. The posterior low back overlying the sacrum was prepped and draped using next sterile barrier technique. All elements of maximal sterile barrier technique including the use of a cap, mask, sterile gown, sterile gloves, large sterile sheet, appropriate hand hygiene, and 2% chlorhexidine for cutaneous antisepsis (or acceptable alternative antiseptic per current guidelines) were followed for this procedure. 1% lidocaine without epinephrine was administered for local anesthesia. Under intermittent CT guidance to 11-gauge trocar needles were advanced along the lateral sacrum directed towards the sacral ala. Once adequate positioning was achieved methylmethacrylate bone cement was slowly instilled into the sacrum during intermittent CT observation. Once adequate filling had been achieved the guiding needles were removed and manual pressure held. No abnormal extravasation of cement is identified. No other immediate complications were seen. The patient tolerated the procedure well. Patient was transferred to the post recovery unit in stable condition. Procedures performed conscious sedation including continuous cardiopulmonary monitoring via dedicated sedation nurse. Sedation time: 1 hour Impression: CT-guided bilateral Sacroplasty
== END | disposition home or self-care (01) ==
LOC: INTRAD 09:58
PROVIDERS: ATTEND Neurological Surgery
DX: S32.10XA Unspecified fracture of sacrum, initial encounter for closed fracture (principal); X58.XXXA Exposure to other specified factors, initial encounter; Y93.89 Activity, other specified; Y92.89 Other specified places as the place of occurrence of the external cause; Y99.8 Other external cause status; I10 Essential (primary) hypertension; K21.9 Gastro-esophageal reflux disease without esophagitis; Z85.51 Personal history of malignant neoplasm of bladder; Z86.69 Personal history of other diseases of the nervous system and sense organs; Z87.39 Personal history of other diseases of the musculoskeletal system and connective tissue; Z96.653 Presence of artificial knee joint, bilateral; Z88.0 Allergy status to penicillin; Z91.048 Other nonmedicinal substance allergy status
CPT/HCPCS: 22511; 36415; 85025; 85610; 99152; 99153; C1758; J2250; J3010; J3370

== ENCOUNTER 2017-10-03 18:23 | Emergency (ER) | payer MEDICARE | END 2017-10-03 20:11 | disposition home or self-care (01) | LOC: ER 18:23 | DX: T83.098A Other mechanical complication of other urinary catheter, initial encounter (principal); M19.90 Unspecified osteoarthritis, unspecified site; K21.9 Gastro-esophageal reflux disease without esophagitis; Z88.0 Allergy status to penicillin; Z91.048 Other nonmedicinal substance allergy status; Y84.6 Urinary catheterization as the cause of abnormal reaction of the patient, or of later complication, without mention of misadventure at the time of the procedure; Y92.89 Other specified places as the place of occurrence of the external cause | CPT/HCPCS: 99284 ==

== ENCOUNTER 2017-10-09 06:55 | Emergency (ER) | payer MEDICARE ==
[2017-10-09 08:18] LABS: BILIRUBIN,URINE NEGATIVE (NEG); CLARITY,URINE CLOUDY; COLOR,URINE RED; GLUCOSE,URINE NEGATIVE (NEG); NITRITE,URINE NEGATIVE (NEG); PROTEIN,URINE >=300 mg/dL (NEG-TRACE); UROBILINOGEN,URINE 0.2 mg/dL (0.2 mg/dL)
[2017-10-09 08:30] LABS: RBC,URINE TNTC /HPF (0-2)
[2017-10-09 08:31] LABS: BACTERIA,URINE MODERATE /HPF (0-FEW)
[2017-10-09 08:51] LABS: ADD MAN DIFF? NO
[2017-10-09 08:56] LABS: BASO % 0 % (0-3); EOS # 0.2 x10^3/uL (0.0-0.7); EOS % 4 % (0-3); HEMOGLOBIN 8.9 g/dL (13.0-17.5); LYMPH % 18 % (24-48); MEAN CORPUSCULAR HEMOGLOBIN 30 pg (25-35); MEAN CORPUSCULAR HGB CONC 33 g/dL (31-37); MEAN CORPUSCULAR VOLUME 90 fL (79-100); MONO # 0.5 x10^3/uL (0.0-1.1); MONO % 10 % (0-9); NEUT # 3.6 x10^3uL (1.8-7.7); NEUT % 68 % (31-73); PLATELET COUNT 199 x10^3/uL (140-400); RED CELL DISTRIBUTION WIDTH 17.3 % (11.5-14.5); WHITE BLOOD COUNT 5.4 x10^3/uL (4.0-11.0)
[2017-10-09 09:56] LABS: ANION GAP 6 (6-14); BLOOD UREA NITROGEN 33 mg/dL (8-26); BUN/CREATININE RATIO 28 (6-20); CALCIUM 8.6 mg/dL (8.5-10.1); CARBON DIOXIDE 28 mmol/L (21-32); CHLORIDE 106 mmol/L (98-107); CREATININE 1.2 mg/dL (0.7-1.3); GFR 57.8; GLUCOSE 97 mg/dL (70-99); POTASSIUM 4.3 mmol/L (3.5-5.1); SODIUM 140 mmol/L (136-145)
[2017-10-09 10:00] LABS: ALBUMIN 3.2 g/dL (3.4-5.0); ALBUMIN/GLOBULIN RATIO 0.9 (1.0-1.7); ALK PHOS 73 U/L (46-116); ALT (SGPT) 16 U/L (16-63); AST (SGOT) 15 U/L (15-37); TOTAL BILIRUBIN 0.2 mg/dL (0.2-1.0); TOTAL PROTEIN 6.7 g/dL (6.4-8.2)
== END 2017-10-09 11:30 | disposition short-term general hospital (02) ==
LOC: ER 06:55
DX: R31.9 Hematuria, unspecified (principal); R33.9 Retention of urine, unspecified; K21.9 Gastro-esophageal reflux disease without esophagitis; M19.90 Unspecified osteoarthritis, unspecified site; Z88.0 Allergy status to penicillin; Z91.048 Other nonmedicinal substance allergy status
CPT/HCPCS: 36415; 51702; 80053; 81001; 85025; 87086; 99285-25

== ENCOUNTER → 2018-05-26 | Outpatient (CLI) | payer MEDICARE ==
[2017-10-09 10:08] VITALS: BP 135/63
[~2018-05-26] MED LIST changes: -LIDOCAINE WITH 8.4% SOD BICARB 3 ML DISP.SYRIN. IJ ONE; -MIDAZOLAM HCL/PF 5 MG/5 ML VIAL. IV ONE; -MIDAZOLAM HCL/PF 5 MG/5 ML VIAL. ONE; +POTA10TA12 PO; -POTASSIUM CHLO10 MEQ PO; -SENN-6 PO; +SENN-82 PO; +TRAZ-85 PO; -TRAZ50TA15 PO; -VANCOMYCIN 1GM IVPB FOR OMNI 250 ML IV ONE; -VANCOMYCIN 1GM IVPB FOR OMNI 250 ML ONE; -fentaNYL PF VIAL 250 MCG/5 ML VIAL IV ONE; -fentaNYL PF VIAL 250 MCG/5 ML VIAL ONE
--- NOTE | 2018-05-26 17:07 | KCIC ---
Examination: CT CHEST ABDOMEN PELVIS WO History: Bladder cancer Comparison/Correlation: 12/04/2016 CT abdomen and pelvis with oral contrast, 10/28/2013 CT chest without contrast Findings: Axial images of the chest, abdomen, and pelvis were obtained without contrast. Lack of IV contrast may limit detection of mass lesions and inflammatory processes. Sagittal and coronal reformatted images were provided. Within the right mid thoracic level adjacent to the minor fissure, there is a 0.5 cm diameter nodule which probably represents a perifissural lymph node. This has a corresponding finding on CT of the chest without contrast dated 10/28/2013 although it appears slightly larger. No suspicious pulmonary nodules. Pleural thickening and calcification at the posterior lateral left upper thoracic level is again seen. The tracheobronchial tree is unremarkable. There is no pleural effusion or pneumothorax. The unenhanced liver, spleen, pancreas, and adrenal glands are normal. No radiopaque collecting system calculi. Inferior vena cava filter is present. No enlarged abdominal or pelvic lymph nodes. Large quantity of stool noted in the colon. No inflammatory changes about the cecum. Mild circumferential wall thickening of the urinary bladder is present. Urinary bladder is not fully distended. Old left pubic symphysis fracture deformity is present with comminuted fragments. Sclerotic appearance of the iliac bones at the sacroiliac joint region noted bilaterally. Sacroiliac joint vacuum phenomenon is present. High density involving the S1 level bilaterally at the sacral jarret noted. Correlate with vertebroplasty. Lumbar spinal fusion from L3 to L5 is present. Intervertebral disc spacer material noted at L4-5. Mild anterolisthesis of L4 over L5 of grade 1 extent is present is similar to prior exam. Impression: No mass or lymphadenopathy identified in the interval on this noncontrast and there is a limited exam. No suspicious interval findings. Electronically signed by: Don Flores MD (05/26/2018 5:03 PM) [facility]
== END | disposition home or self-care (01) ==
LOC: KCIC CT 12:38
PROVIDERS: ATTEND Internal Medicine Hematology & Oncology
DX: Z08 Encounter for follow-up examination after completed treatment for malignant neoplasm (principal); Z85.51 Personal history of malignant neoplasm of bladder; Z87.891 Personal history of nicotine dependence
CPT/HCPCS: 71250; 74176

== ENCOUNTER 2018-11-04 23:10 | Inpatient (IN) | payer MEDICARE ==
[~2018-11-04] VITALS: Ht 175.3 cm; Wt 69.1 kg
[~2018-11-04 23:10] MED LIST changes: +CIPR500T PO; -HYDR-2766 PO; +HYDR-2769 PO; -OXYC10TA45 PO; +OXYC10TA46 PO; -OXYC15TA60 PO; +OXYC15TA61 PO; +OXYC5TAB4 PO; -OXYC5TAB95 PO; -POLY255P PO; +POLY255P11 PO; +TRAZ-118 PO; -TRAZ-85 PO
[2018-11-05 00:41] LABS: BASO % 0 % (0-3); EOS # 0.3 x10^3/uL (0.0-0.7); EOS % 3 % (0-3); HEMATOCRIT 26.3 % (39.0-53.0); HEMOGLOBIN 8.5 g/dL (13.0-17.5); LYMPH # 0.6 x10^3/uL (1.0-4.8); LYMPH % 7 % (24-48); MEAN CORPUSCULAR HEMOGLOBIN 30 pg (25-35); MEAN CORPUSCULAR HGB CONC 32 g/dL (31-37); MEAN CORPUSCULAR VOLUME 94 fL (79-100); MONO # 0.6 x10^3/uL (0.0-1.1); MONO % 7 % (0-9); NEUT # 6.5 x10^3uL (1.8-7.7); NEUT % 82 % (31-73); PLATELET COUNT 253 x10^3/uL (140-400); RED CELL DISTRIBUTION WIDTH 16.9 % (11.5-14.5); WHITE BLOOD COUNT 7.9 x10^3/uL (4.0-11.0)
[2018-11-05] MEDS ORDERED: IV NORMAL SALINE 500ML BAG 500 ML IV ONE (00:45)
[2018-11-05 00:48] LABS: CALCIUM 8.7 mg/dL (8.5-10.1); CREATININE 1.7 mg/dL (0.7-1.3); GFR 38.6
[2018-11-05 00:51] LABS: PROTHROMBIN TIME PATIENT 13.3 SEC (11.7-14.0)
[2018-11-05 00:54] LABS: ALBUMIN 3.2 g/dL (3.4-5.0); ALBUMIN/GLOBULIN RATIO 0.8 (1.0-1.7); TOTAL BILIRUBIN 0.3 mg/dL (0.2-1.0); TOTAL PROTEIN 7.2 g/dL (6.4-8.2)
--- NOTE | 2018-11-05 01:12 | PHYS DOC ---
Past Medical History Past Medical History: Anemia, Arthritis, Cancer, GERD, Renal Disease, UTI Additional Past Medical Histor: BLADDER CANCER, BACK PAIN, DDD Past Surgical History: Tonsillectomy Additional Past Surgical Histo: BACK SX, KNEE SX, FILTER IN R LEG, CARTOID SX Alcohol Use: None Drug Use: None Adult General Chief Complaint Chief Complaint: RECTAL BLEED HPI HPI Patient is an 83 year old male with bladder cancer in remission for 2 years who presents with painless urethral bleeding. Pt notes bleeding started around 11 am today (11/04/18) after having his catheter changed at a different medical facility, it sounds like urology clinic at . He has gross hematuria w/ cath and cath bag filled with ada blood. Pt denies pain but is Tender to deep palpation in his suprapubic region. He notes chronic DO and a history of severe anemia. He also reports alternating diarrhea and constipation. He denies fever, wt loss, painful urination, or polyuria. Review of Systems Review of Systems Constitutional: Denies fever or chills [] Eyes: Denies change in visual acuity, redness, or eye pain [] HENT: Denies nasal congestion or sore throat [] Respiratory: Denies cough or shortness of breath, admits to DO [] Cardiovascular: No additional information not addressed in HPI [] GI: Denies abdominal pain, nausea, vomiting. Admits to constipation and diarrhea. [] : Denies dysuria, admits to hematuria [] Musculoskeletal: Admits to back pain or joint pain [] Endocrine: Denies polyuria or polydipsia [] All other systems were reviewed and found to be within normal limits, except as documented in this note. Current Medications Current Medications Current Medications Medications (Trade) Dose Ordered Sig/Carter Start Time Stop Time Status Last Admin Dose Admin Sodium Chloride 500 ml @ 500 mls/hr 1X ONCE 11/05/18 00:45 11/05/18 01:44 DC 11/05/18 02:56 500 MLS/HR Allergies Allergies Allergies Coded Allergies Type Severity Reaction Last Updated Verified Penicillins Allergy Intermediate 06/13/15 Yes adhesive tape Adverse Reaction Intermediate tape- pulls skin off 06/13/15 Yes Physical Exam Physical Exam Constitutional: Well developed, well nourished, no acute distress, non-toxic appearance. [] Cardiovascular:Heart rate regular rhythm. Holosystolic murmur graded +2/6 auscultated at R SB 2nd ICS and L Lower SB, 4th ICS [] Lungs & Thorax: Bilateral breath sounds clear to auscultation [] Abdomen: Bowel sounds normal, soft, no tenderness, no masses, no pulsatile masses. No masses or lesions noted on UDAY. [] Skin: Extensive bruising b/l on UE's and LE's [] Back: No tenderness, no CVA tenderness. [] Extremities: +6/8 Pitting edema in b/l LE's. Radial pulses +2/4 [] Neurologic: Alert and oriented X 3 Psychologic: Affect normal, judgement normal, mood normal. [] Current Patient Data Vital Signs Vital Signs Date Time Temp Pulse Resp B/P (MAP) Pulse Ox O2 Delivery O2 Flow Rate FiO2 11/04/18 23:10 98.0 85 20 144/71 (95) 100 Room Air 98.0 Lab Values Laboratory Tests Test 11/05/18 00:05 White Blood Count 7.9 x10^3/uL (4.0-11.0) Red Blood Count 2.80 x10^6/uL (4.30-5.70) L Hemoglobin 8.5 g/dL (13.0-17.5) L Hematocrit 26.3 % (39.0-53.0) L Mean Corpuscular Volume 94 fL (79-100) Mean Corpuscular Hemoglobin 30 pg (25-35) Mean Corpuscular Hemoglobin Concent 32 g/dL (31-37) Red Cell Distribution Width 16.9 % (11.5-14.5) H Platelet Count 253 x10^3/uL (140-400) Neutrophils (%) (Auto) 82 % (31-73) H Lymphocytes (%) (Auto) 7 % (24-48) L Monocytes (%) (Auto) 7 % (0-9) Eosinophils (%) (Auto) 3 % (0-3) Basophils (%) (Auto) 0 % (0-3) Neutrophils # (Auto) 6.5 x10^3uL (1.8-7.7) Lymphocytes # (Auto) 0.6 x10^3/uL (1.0-4.8) L Monocytes # (Auto) 0.6 x10^3/uL (0.0-1.1) Eosinophils # (Auto) 0.3 x10^3/uL (0.0-0.7) Basophils # (Auto) 0.0 x10^3/uL (0.0-0.2) Prothrombin Time 13.3 SEC (11.7-14.0) Prothrombin Time INR 1.0 (0.8-1.1) Sodium Level 139 mmol/L (136-145) Potassium Level 5.0 mmol/L (3.5-5.1) Chloride Level 104 mmol/L (98-107) Carbon Dioxide Level 27 mmol/L (21-32) Anion Gap 8 (6-14) Blood Urea Nitrogen 38 mg/dL (8-26) H Creatinine 1.7 mg/dL (0.7-1.3) H Estimated GFR (Cockcroft-Gault) 38.6 BUN/Creatinine Ratio 22 (6-20) H Glucose Level 111 mg/dL (70-99) H Calcium Level 8.7 mg/dL (8.5-10.1) Total Bilirubin 0.3 mg/dL (0.2-1.0) Aspartate Amino Transferase (AST) 18 U/L (15-37) Alanine Aminotransferase (ALT) 16 U/L (16-63) Alkaline Phosphatase 94 U/L (46-116) Total Protein 7.2 g/dL (6.4-8.2) Albumin 3.2 g/dL (3.4-5.0) L Albumin/Globulin Ratio 0.8 (1.0-1.7) L Laboratory Tests 11/05/18 00:05 Laboratory Tests 11/05/18 00:05 creatinine stable. anemia stable EKG EKG [] Radiology/Procedures Radiology/Procedures [] Course & Med Decision Making Course & Med Decision Making Pertinent Labs and Imaging studies reviewed. (See chart for details) []83-year-old male with the above past medical history history of bladder cancer with indwelling Paul followed mostly at presenting with hematuria. Patient had ada blood in his Paul catheter we tried to irrigate it manually there was still some 100 MLS left in his bladder we replaced it with continuous bladder irrigation were irrigating it while he was in the emergency room and it was getting slightly pinker. Patient remained hemodynamically stable anemia is stable elevated creatinine appears basically stable 1.6 his baseline. I talked to the patient about disposition he said that he would like to stay at this hospital he does not want to go over to [facility] at this time he is worried that they may have messed up his Paul catheter exchange procedure earlier today since he is bleeding now. We did a rectal exam there was brown stool ON [there was any rectal bleeding at all. Urinalysis is currently pending at this time patient is already on oral antibiotics. i ordered dose of cipro for this patient while awaiting u/a/ culture results. admit, serial cbc, CBI, urology consult. admit to [facility] per usual local protocol Dragga Disclaimer Dragon Disclaimer This electronic medical record was generated, in whole or in part, using a voice recognition dictation system. Departure Departure Impression: Primary Impression: Hematuria Disposition: ADMITTED INPATIENT Admitting Physician: Michele Jessica Condition: STABLE Referrals: GEORGE TADEO (PCP) OLI AUGUSTIN MD Nov 05, 2018 01:12
[2018-11-05] MEDS ORDERED: LIDOCAINE 2% JELLY 6ML IN APPLICATOR. ONE (01:27)
[2018-11-05] MEDS: IV NORMAL SALINE 1000ML BAG 1,000 ML IV SCH ×4 (01:45→21:35)
[2018-11-05 02:53] LABS: BILIRUBIN,URINE NEGATIVE (NEG); CLARITY,URINE CLEAR; COLOR,URINE RED; NITRITE,URINE NEGATIVE (NEG); PROTEIN,URINE 30 mg/dL (NEG-TRACE); UROBILINOGEN,URINE 0.2 mg/dL (0.2 mg/dL)
[2018-11-05 03:00] VITALS: BP 130/43
[2018-11-05 03:06] LABS: BACTERIA,URINE 0 /HPF (0-FEW); RBC,URINE TNTC /HPF (0-2)
[2018-11-05 04:19] LABS: BASO % 0 % (0-3); EOS # 0.3 x10^3/uL (0.0-0.7); EOS % 4 % (0-3); HEMATOCRIT 23.9 % (39.0-53.0); HEMOGLOBIN 7.7 g/dL (13.0-17.5); LYMPH # 1.2 x10^3/uL (1.0-4.8); LYMPH % 17 % (24-48); MEAN CORPUSCULAR HEMOGLOBIN 30 pg (25-35); MEAN CORPUSCULAR HGB CONC 32 g/dL (31-37); MEAN CORPUSCULAR VOLUME 94 fL (79-100); MONO # 0.5 x10^3/uL (0.0-1.1); MONO % 7 % (0-9); NEUT # 5.1 x10^3uL (1.8-7.7); NEUT % 72 % (31-73); PLATELET COUNT 230 x10^3/uL (140-400); RED BLOOD COUNT 2.54 x10^6/uL (4.30-5.70); RED CELL DISTRIBUTION WIDTH 16.8 % (11.5-14.5); WHITE BLOOD COUNT 7.1 x10^3/uL (4.0-11.0)
[2018-11-05] MEDS ORDERED: CIPROFLOXACIN 400MG PREMIX 200 ML IV ONE (04:30)
[2018-11-05] MEDS ORDERED: TRAZ-118 PO (04:57)
[2018-11-05 07:00] VITALS: BP 115/48
[2018-11-05] MEDS ORDERED: ACETAMINOPHEN 325 MG TABLET. PO PRN (08:45)
[2018-11-05] MEDS ORDERED: ZOLPIDEM 5 MG TABLET. PO PRN (08:45)
[2018-11-05] MEDS ORDERED: LORazepam 0.5 MG TABLET PO PRN (08:45)
[2018-11-05] MEDS ORDERED: DOCUSATE SODIUM 100 MG CAPSULE. PO PRN (08:45)
[2018-11-05] MEDS ORDERED: OPIUM/BELLADONNA 30/16.2MG SUPP.RECT. PR PRN (08:45)
[2018-11-05] MEDS ORDERED: HYDROmorphone 2 MG/ML VIAL IV PRN (08:45)
[2018-11-05] MEDS ORDERED: ONDANSETRON PF 4 MG/2 ML VIAL. IV PRN (08:45)
--- NOTE | 2018-11-05 08:52 | PDOC1 ---
History and Physical Date of Admission Date of Admission Identification/Chief Complaint Chief Complaint i AM BLEEDING Problems: (1) Hematuria Source Source: Chart review, Patient History of Present Illness History of Present Illness Patient is an 83 year old male with past medical history of bladder cancer who went for a urological follow up and he relates he had his catheter exchanged but "they acted like they did not know what they were doing" The patient refers some disocmfort during the catheter exchange but did not notice blood in his urine. Later in the day the patient experienced insidious onset of lower abdominal discomfort and subsequent hematuria reason why he consulted to the ER. We were asked to admit for urological evaluation, at the time of my evaluation the patient is experiencing discomfort since his CBI stopped running and he had to be flushed, several clots came out of his 3 way catheter and CBI was restarted. No fever or chills, no chest pain palpitations shortness of breath or other symptoms were reported by the patient Reassurance provided plan of care explained in detail. Past Medical History Cardiovascular: HTN, Other Pulmonary: No pertinent hx GI: GERD Heme/Onc: No pertinent hx Hepatobiliary: No pertinent hx Psych: No pertinent hx Rheumatologic: Rheumatoid arthritis Renal/: Chronic renal insuff, Bladder Ca. Endocrine: No pertinent hx Past Surgical History Past Surgical History: Total knee replacement, Tonsillectomy, Other Family History Family History: Coronary Artery Disease Social History ALCOHOL: none Drugs: None Current Problem List Problem List Problems Medical Problems: (1) Hematuria Status: Acute Current Medications Current Medications Current Medications Medications (Trade) Dose Ordered Sig/Carter Start Time Stop Time Status Last Admin Dose Admin Ciprofloxacin/ Dextrose 200 ml @ 200 mls/hr 1X ONCE 11/05/18 04:30 11/05/18 05:29 DC 11/05/18 04:43 200 MLS/HR Lidocaine HCl (Glydo (Lidocaine) Jelly) 6 greg STK-MED ONCE 11/05/18 01:27 11/05/18 01:28 DC Sodium Chloride 1,000 ml @ 75 mls/hr [id number] 11/05/18 01:45 11/06/18 01:44 11/05/18 01:45 75 MLS/HR Allergies Allergies Allergies Coded Allergies Type Severity Reaction Last Updated Verified Penicillins Allergy Intermediate 06/13/15 Yes adhesive tape Adverse Reaction Intermediate tape- pulls skin off 06/13/15 Yes ROS Review of System CONSTITUTIONAL: No fever or chills EYES: No recent changes SKIN: No rash or itching CARDIOVASCULAR: No chest pain, syncope, palpitations, or edema RESPIRATORY: No SOB or cough GASTROINTESTINAL: No nausea, vomiting or abdominal pain NEUROLOGICAL: No headaches or weakness ENDOCRINE: No cold or heat intolerance GENITOURINARY: No urgency or frequency of urination MUSCULOSKELETAL: No back pain or joint pain LYMPHATICS: No enlarged lymph nodes PSYCHIATRIC: No anxiety or depression Physical Exam Physical Exam GEN.: No apparent distress. Alert and oriented. HEENT: Head is normocephalic, atraumatic NECK: Supple. LUNGS: Clear to auscultation. HEART: RRR, S1, S2 present. Peripheral pulses intact ABDOMEN: Soft, nontender. Positive bowel sounds. EXTREMITIES: Without any cyanosis. NEUROLOGIC: Normal speech, normal tone PSYCHIATRIC: Normal affect, normal mood. SKIN: No ulcerations Vitals Vitals Vital Signs Date Time Temp Pulse Resp B/P (MAP) Pulse Ox O2 Delivery O2 Flow Rate FiO2 11/05/18 07:00 98.0 68 18 115/48 (70) 99 Room Air 98.0 Labs Labs Laboratory Tests Test 11/05/18 00:05 11/05/18 02:45 11/05/18 03:40 White Blood Count 7.9 x10^3/uL (4.0-11.0) 7.1 x10^3/uL (4.0-11.0) Red Blood Count 2.80 x10^6/uL (4.30-5.70) 2.54 x10^6/uL (4.30-5.70) Hemoglobin 8.5 g/dL (13.0-17.5) 7.7 g/dL (13.0-17.5) Hematocrit 26.3 % (39.0-53.0) 23.9 % (39.0-53.0) Mean Corpuscular Volume 94 fL (79-100) 94 fL (79-100) Mean Corpuscular Hemoglobin 30 pg (25-35) 30 pg (25-35) Mean Corpuscular Hemoglobin Concent 32 g/dL (31-37) 32 g/dL (31-37) Red Cell Distribution Width 16.9 % (11.5-14.5) 16.8 % (11.5-14.5) Platelet Count 253 x10^3/uL (140-400) 230 x10^3/uL (140-400) Neutrophils (%) (Auto) 82 % (31-73) 72 % (31-73) Lymphocytes (%) (Auto) 7 % (24-48) 17 % (24-48) Monocytes (%) (Auto) 7 % (0-9) 7 % (0-9) Eosinophils (%) (Auto) 3 % (0-3) 4 % (0-3) Basophils (%) (Auto) 0 % (0-3) 0 % (0-3) Neutrophils # (Auto) 6.5 x10^3uL (1.8-7.7) 5.1 x10^3uL (1.8-7.7) Lymphocytes # (Auto) 0.6 x10^3/uL (1.0-4.8) 1.2 x10^3/uL (1.0-4.8) Monocytes # (Auto) 0.6 x10^3/uL (0.0-1.1) 0.5 x10^3/uL (0.0-1.1) Eosinophils # (Auto) 0.3 x10^3/uL (0.0-0.7) 0.3 x10^3/uL (0.0-0.7) Basophils # (Auto) 0.0 x10^3/uL (0.0-0.2) 0.0 x10^3/uL (0.0-0.2) Prothrombin Time 13.3 SEC (11.7-14.0) Prothromb Time International Ratio 1.0 (0.8-1.1) Sodium Level 139 mmol/L (136-145) Potassium Level 5.0 mmol/L (3.5-5.1) Chloride Level 104 mmol/L (98-107) Carbon Dioxide Level 27 mmol/L (21-32) Anion Gap 8 (6-14) Blood Urea Nitrogen 38 mg/dL (8-26) Creatinine 1.7 mg/dL (0.7-1.3) Estimated GFR (Cockcroft-Gault) 38.6 BUN/Creatinine Ratio 22 (6-20) Glucose Level 111 mg/dL (70-99) Calcium Level 8.7 mg/dL (8.5-10.1) Total Bilirubin 0.3 mg/dL (0.2-1.0) Aspartate Amino Transf (AST/SGOT) 18 U/L (15-37) Alanine Aminotransferase (ALT/SGPT) 16 U/L (16-63) Alkaline Phosphatase 94 U/L (46-116) Total Protein 7.2 g/dL (6.4-8.2) Albumin 3.2 g/dL (3.4-5.0) Albumin/Globulin Ratio 0.8 (1.0-1.7) Urine Collection Type U cath Urine Color Red Urine Clarity Clear Urine pH 6.0 Urine Specific [place] <=1.005 Urine Protein 30 mg/dL (NEG-TRACE) Urine Glucose (UA) Negative mg/dL (NEG) Urine Ketones (Stick) Negative mg/dL (NEG) Urine Blood Large (NEG) Urine Nitrite Negative (NEG) Urine Bilirubin Negative (NEG) Urine Urobilinogen Dipstick 0.2 mg/dL (0.2 mg/dL) Urine Leukocyte Esterase Small (NEG) Urine RBC Tntc /HPF (0-2) Urine WBC 5-10 /HPF (0-4) Urine Squamous Epithelial Cells None /LPF Urine Bacteria 0 /HPF (0-FEW) Laboratory Tests Test 11/05/18 00:05 11/05/18 02:45 11/05/18 03:40 White Blood Count 7.9 x10^3/uL (4.0-11.0) 7.1 x10^3/uL (4.0-11.0) Red Blood Count 2.80 x10^6/uL (4.30-5.70) 2.54 x10^6/uL (4.30-5.70) Hemoglobin 8.5 g/dL (13.0-17.5) 7.7 g/dL (13.0-17.5) Hematocrit 26.3 % (39.0-53.0) 23.9 % (39.0-53.0) Mean Corpuscular Volume 94 fL (79-100) 94 fL (79-100) Mean Corpuscular Hemoglobin 30 pg (25-35) 30 pg (25-35) Mean Corpuscular Hemoglobin Concent 32 g/dL (31-37) 32 g/dL (31-37) Red Cell Distribution Width 16.9 % (11.5-14.5) 16.8 % (11.5-14.5) Platelet Count 253 x10^3/uL (140-400) 230 x10^3/uL (140-400) Neutrophils (%) (Auto) 82 % (31-73) 72 % (31-73) Lymphocytes (%) (Auto) 7 % (24-48) 17 % (24-48) Monocytes (%) (Auto) 7 % (0-9) 7 % (0-9) Eosinophils (%) (Auto) 3 % (0-3) 4 % (0-3) Basophils (%) (Auto) 0 % (0-3) 0 % (0-3) Neutrophils # (Auto) 6.5 x10^3uL (1.8-7.7) 5.1 x10^3uL (1.8-7.7) Lymphocytes # (Auto) 0.6 x10^3/uL (1.0-4.8) 1.2 x10^3/uL (1.0-4.8) Monocytes # (Auto) 0.6 x10^3/uL (0.0-1.1) 0.5 x10^3/uL (0.0-1.1) Eosinophils # (Auto) 0.3 x10^3/uL (0.0-0.7) 0.3 x10^3/uL (0.0-0.7) Basophils # (Auto) 0.0 x10^3/uL (0.0-0.2) 0.0 x10^3/uL (0.0-0.2) Prothrombin Time 13.3 SEC (11.7-14.0) Prothromb Time International Ratio 1.0 (0.8-1.1) Sodium Level 139 mmol/L (136-145) Potassium Level 5.0 mmol/L (3.5-5.1) Chloride Level 104 mmol/L (98-107) Carbon Dioxide Level 27 mmol/L (21-32) Anion Gap 8 (6-14) Blood Urea Nitrogen 38 mg/dL (8-26) Creatinine 1.7 mg/dL (0.7-1.3) Estimated GFR (Cockcroft-Gault) 38.6 BUN/Creatinine Ratio 22 (6-20) Glucose Level 111 mg/dL (70-99) Calcium Level 8.7 mg/dL (8.5-10.1) Total Bilirubin 0.3 mg/dL (0.2-1.0) Aspartate Amino Transf (AST/SGOT) 18 U/L (15-37) Alanine Aminotransferase (ALT/SGPT) 16 U/L (16-63) Alkaline Phosphatase 94 U/L (46-116) Total Protein 7.2 g/dL (6.4-8.2) Albumin 3.2 g/dL (3.4-5.0) Albumin/Globulin Ratio 0.8 (1.0-1.7) Urine Collection Type U cath Urine Color Red Urine Clarity Clear Urine pH 6.0 Urine Specific [place] <=1.005 Urine Protein 30 mg/dL (NEG-TRACE) Urine Glucose (UA) Negative mg/dL (NEG) Urine Ketones (Stick) Negative mg/dL (NEG) Urine Blood Large (NEG) Urine Nitrite Negative (NEG) Urine Bilirubin Negative (NEG) Urine Urobilinogen Dipstick 0.2 mg/dL (0.2 mg/dL) Urine Leukocyte Esterase Small (NEG) Urine RBC Tntc /HPF (0-2) Urine WBC 5-10 /HPF (0-4) Urine Squamous Epithelial Cells None /LPF Urine Bacteria 0 /HPF (0-FEW) VTE Prophylaxis Ordered VTE Prophylaxis Devices: No VTE Pharmacological Prophylaxi: Yes Assessment/Plan Assessment/Plan Gross hematuria History of bladder cancer History of essential hypertension Acute blood loss anemia secondary to hematuria Acute on chronic renal failure, patient etiology is most likely post renal vs vasomotor Plan: consult urology pain management repeat cbc will request records from [facility] restart home medications. further recommendations based on clinical course keep npo until urology consultation has been done. DVT prophylaxis: scd and teds. Problem Qualifiers (1) Hematuria: Hematuria type: gross Qualified Codes: R31.0 - Gross hematuria GABY CHAUDHRY MD Nov 05, 2018 08:52
[2018-11-05] MEDS ORDERED: POLYETHYLENE GLYCOL 3350 17 GM PACKET. PO PRN (09:00)
[2018-11-05] MEDS ORDERED: PHENYLEPH/MINERAL OIL/PETROLAT RECTAL OINTMENT 28GM TUBE. RC PRN (09:00)
[2018-11-05 09:36] LABS: BASO % 0 % (0-3); EOS # 0.3 x10^3/uL (0.0-0.7); EOS % 5 % (0-3); HEMATOCRIT 22.8 % (39.0-53.0); HEMOGLOBIN 7.4 g/dL (13.0-17.5); LYMPH # 0.8 x10^3/uL (1.0-4.8); LYMPH % 14 % (24-48); MEAN CORPUSCULAR HEMOGLOBIN 31 pg (25-35); MEAN CORPUSCULAR HGB CONC 33 g/dL (31-37); MEAN CORPUSCULAR VOLUME 93 fL (79-100); MONO # 0.4 x10^3/uL (0.0-1.1); MONO % 8 % (0-9); NEUT # 4.1 x10^3uL (1.8-7.7); NEUT % 73 % (31-73); PLATELET COUNT 203 x10^3/uL (140-400); RED BLOOD COUNT 2.44 x10^6/uL (4.30-5.70); RED CELL DISTRIBUTION WIDTH 16.9 % (11.5-14.5); WHITE BLOOD COUNT 5.6 x10^3/uL (4.0-11.0)
[2018-11-05 11:00] VITALS: BP 129/57
--- NOTE | 2018-11-05 11:04 | PDOC2 ---
CHUY MICHAELS CLINICAL APPEALS REVIEWER 11/05/18 1104: UROLOGY CONSULT Date of Consult Date of Consult DATE: 11/05/18 TIME: 10:59 Reason for Consult Reason for Consult: Hematuria Identification/Chief Complaint Chief Complaint Hematuria Source Source: Caregiver, Chart review, Patient History of Present Illness Reason for Visit: This 83 year old gentleman with a history of bladder cancer had been receiving treatment at . He went in for a catheter change yesterday morning at Urology and came home with a very bloody bag full of urine which continued through the rest of yesterday and into the late night. , the patient presented to [facility] ER for further evaluation. When he presented early this am, he had ada blood in his Paul catheter. At first they tried to irrigate this and then decided to place him on CBI which he is on currently. The attending nurse relates that she has been able to get the color to a light pinkish red over the past couple of hours and has seen no clots. Patient relates only minimal discomfort from the device. It was very hard to get a detailed history from this patient, as he is hard of hearing and also he had a hard time answering questions in a straight manner and would go off on unrelated subjects during the interview. It is unclear why he has the Paul catheter in the first place. One minute he told PUPPET ENGINEER that he had had it for "several months"and the next breath he said "I've only had this for about eight weeks." He is not sure when his last cystoscopy was, or which physician at is managing his bladder cancer. He says "they are all kind of managing me." He is unable to answer if he is getting bladder chemo or not at . The attending nurse is working on getting the records from at this time. Past Medical History Cardiovascular: HTN, Other Pulmonary: No pertinent hx GI: GERD Heme/Onc: No pertinent hx Hepatobiliary: No pertinent hx Psych: No pertinent hx Musculoskeletal: low back pain, Other Rheumatologic: Rheumatoid arthritis Renal/: Chronic renal insuff, Bladder Ca., Hematuria Endocrine: No pertinent hx Past Surgical History Past Surgical History: Total knee replacement, Tonsillectomy, Other Family History Family History: Coronary Artery Disease Social History ALCOHOL: none Drugs: None Lives: with Family Current Problem List Problems: (1) Hematuria Current Medications Current Medications Current Medications Acetaminophen (Tylenol) 650 mg PRN Q4HRS PRN PO TEMP OVER 100.4F OR MILD PAIN; Start 11/05/18 at 08:45 Acetaminophen/ Hydrocodone Bitart (Lortab 10/325) 1 tab PRN Q6HRS PRN PO PAIN; Start 11/05/18 at 08:45 Belladonna Alkaloids/Opium (B & O) 1 supp PRN Q12HR PRN MT BLADDER SPASM; Start 11/05/18 at 08:45 Ciprofloxacin/ Dextrose 200 ml @ 200 mls/hr 1X ONCE IV Last administered on at 04:43; Start 11/05/18 at 04:30; Stop 11/05/18 at 05:29; Status DC Ciprofloxacin/ Dextrose 200 ml @ 200 mls/hr Q12HR IV ; Start 11/05/18 at 21:00 Cyanocobalamin (Vitamin B-12) 1,000 mcg DAILY PO ; Start 11/05/18 at 09:30 Docusate Sodium (Colace) 100 mg PRN DAILY PRN PO CONSTIPATION; Start 11/05/18 at 08:45 Fluticasone Propionate (Flonase) 2 spray DAILY NS ; Start 11/05/18 at 10:00 Furosemide (Lasix) 20 mg DAILY PO ; Start 11/05/18 at 09:30 Hydromorphone HCl (Dilaudid) 1 mg PRN Q2HRS PRN IV SEVERE PAIN; Start 11/05/18 at 08:45 Lidocaine HCl (Glydo (Lidocaine) Jelly) 6 greg STK-MED ONCE .ROUTE ; Start at 01:27; Stop 11/05/18 at 01:28; Status DC Lorazepam (Ativan) 0.5 mg PRN Q4HRS PRN PO ANXIETY / AGITATION; Start 11/05/18 at 08:45 Multivitamins/ Minerals (I-Nava) 1 tab BID PO ; Start 11/05/18 at 09:30 Niacin (Slo-Niacin) 500 mg QHS PO ; Start 11/05/18 at 21:00 Ondansetron HCl (Zofran) 4 mg PRN Q4HRS PRN IV NAUSEA/VOMITING; Start 11/05/18 at 08:45 Phenyleph/Shark Oil/Min Oil/Petrol (Preparation H) 1 greg PRN BID PRN RC RECTAL PAIN; Start 11/05/18 at 09:00 Polyethylene Glycol (miraLAX PACKET) 17 gm PRN DAILY PRN PO CONSTIPATION 2ND CHOICE; Start 11/05/18 at 09:00 Potassium Chloride (Klor-Con) 10 meq DAILY PO ; Start 11/05/18 at 09:30 Sodium Chloride 500 ml @ 500 mls/hr 1X ONCE IV Last administered on 11/05/18at 02:56; Start 11/05/18 at 00:45; Stop 11/05/18 at 01:44; Status DC Sodium Chloride 1,000 ml @ 75 mls/hr [id number] IV Last administered on 11/05/18at 01:45; Start 11/05/18 at 01:45; Stop 11/06/18 at 01:44 Sodium Chloride 1,000 ml @ 100 mls/hr Q10H IV ; Start 11/05/18 at 09:00 Trazodone HCl (Desyrel) 75 mg HS PO ; Start 11/05/18 at 21:00 Vancomycin HCl (Vancomycin Oral Solution) 125 mg [id number] PO ; Start 11/05/18 at 09:30 Zolpidem Tartrate (Ambien) 5 mg PRN QHS PRN PO INSOMNIA; Start 11/05/18 at 08:45 Zolpidem Tartrate (Ambien) 5 mg QHS PO ; Start 11/05/18 at 21:00 Allergies Allergies: Coded Allergies: Penicillins (Verified Allergy, Intermediate, 06/13/15) tape pulls skin off adhesive tape (Verified Adverse Reaction, Intermediate, tape- pulls skin off, 06/13/15) ROS Review Of Systems: CONSTITUTIONAL: No fever or chills EYES: No recent changes SKIN: No rash or itching CARDIOVASCULAR: No chest pain, syncope, palpitations, or edema RESPIRATORY: No SOB or cough GASTROINTESTINAL: No nausea, vomiting or abdominal pain NEUROLOGICAL: No headaches or weakness ENDOCRINE: No cold or heat intolerance GENITOURINARY: + Gross hematuria after catheter placement at MUSCULOSKELETAL: No back pain or joint pain LYMPHATICS: No enlarged lymph nodes PSYCHIATRIC: No anxiety or depression Physical Exam Physical Exam: General: Pleasant, no acute distress, well groomed Eyes: conjunctiva anicteric, eyes full range of motion ENT: moist oral mucosa, normal dentition Neck: Trachea midline, no masses Respiratory: unlabored breathing, not using accessory muscles. Pelvic: CBI Paul catheter in place draining red tinged urine. Device in good working order. Abdomen: nontender, nondistended, no hepatosplenomegaly, no masses Skin: no rashes or skin lesions on visualized skin Psych: normal mood, affect. Alert and oriented times 3. Difficult time getting straight answers from patient during the interview. Vitals VITALS Vital Signs Date Time Temp Pulse Resp B/P (MAP) Pulse Ox O2 Delivery O2 Flow Rate FiO2 11/05/18 07:00 98.0 68 18 115/48 (70) 99 Room Air 98.0 Labs Labs Laboratory Tests Test 11/05/18 00:05 11/05/18 02:45 11/05/18 03:40 11/05/18 09:20 White Blood Count 7.9 x10^3/uL (4.0-11.0) 7.1 x10^3/uL (4.0-11.0) 5.6 x10^3/uL (4.0-11.0) Red Blood Count 2.80 x10^6/uL (4.30-5.70) 2.54 x10^6/uL (4.30-5.70) 2.44 x10^6/uL (4.30-5.70) Hemoglobin 8.5 g/dL (13.0-17.5) 7.7 g/dL (13.0-17.5) 7.4 g/dL (13.0-17.5) Hematocrit 26.3 % (39.0-53.0) 23.9 % (39.0-53.0) 22.8 % (39.0-53.0) Mean Corpuscular Volume 94 fL (79-100) 94 fL (79-100) 93 fL (79-100) Mean Corpuscular Hemoglobin 30 pg (25-35) 30 pg (25-35) 31 pg (25-35) Mean Corpuscular Hemoglobin Concent 32 g/dL (31-37) 32 g/dL (31-37) 33 g/dL (31-37) Red Cell Distribution Width 16.9 % (11.5-14.5) 16.8 % (11.5-14.5) 16.9 % (11.5-14.5) Platelet Count 253 x10^3/uL (140-400) 230 x10^3/uL (140-400) 203 x10^3/uL (140-400) Neutrophils (%) (Auto) 82 % (31-73) 72 % (31-73) 73 % (31-73) Lymphocytes (%) (Auto) 7 % (24-48) 17 % (24-48) 14 % (24-48) Monocytes (%) (Auto) 7 % (0-9) 7 % (0-9) 8 % (0-9) Eosinophils (%) (Auto) 3 % (0-3) 4 % (0-3) 5 % (0-3) Basophils (%) (Auto) 0 % (0-3) 0 % (0-3) 0 % (0-3) Neutrophils # (Auto) 6.5 x10^3uL (1.8-7.7) 5.1 x10^3uL (1.8-7.7) 4.1 x10^3uL (1.8-7.7) Lymphocytes # (Auto) 0.6 x10^3/uL (1.0-4.8) 1.2 x10^3/uL (1.0-4.8) 0.8 x10^3/uL (1.0-4.8) Monocytes # (Auto) 0.6 x10^3/uL (0.0-1.1) 0.5 x10^3/uL (0.0-1.1) 0.4 x10^3/uL (0.0-1.1) Eosinophils # (Auto) 0.3 x10^3/uL (0.0-0.7) 0.3 x10^3/uL (0.0-0.7) 0.3 x10^3/uL (0.0-0.7) Basophils # (Auto) 0.0 x10^3/uL (0.0-0.2) 0.0 x10^3/uL (0.0-0.2) 0.0 x10^3/uL (0.0-0.2) Prothrombin Time 13.3 SEC (11.7-14.0) Prothromb Time International Ratio 1.0 (0.8-1.1) Sodium Level 139 mmol/L (136-145) Potassium Level 5.0 mmol/L (3.5-5.1) Chloride Level 104 mmol/L (98-107) Carbon Dioxide Level 27 mmol/L (21-32) Anion Gap 8 (6-14) Blood Urea Nitrogen 38 mg/dL (8-26) Creatinine 1.7 mg/dL (0.7-1.3) Estimated GFR (Cockcroft-Gault) 38.6 BUN/Creatinine Ratio 22 (6-20) Glucose Level 111 mg/dL (70-99) Calcium Level 8.7 mg/dL (8.5-10.1) Total Bilirubin 0.3 mg/dL (0.2-1.0) Aspartate Amino Transf (AST/SGOT) 18 U/L (15-37) Alanine Aminotransferase (ALT/SGPT) 16 U/L (16-63) Alkaline Phosphatase 94 U/L (46-116) Total Protein 7.2 g/dL (6.4-8.2) Albumin 3.2 g/dL (3.4-5.0) Albumin/Globulin Ratio 0.8 (1.0-1.7) Urine Collection Type U cath Urine Color Red Urine Clarity Clear Urine pH 6.0 Urine Specific [place] <=1.005 Urine Protein 30 mg/dL (NEG-TRACE) Urine Glucose (UA) Negative mg/dL (NEG) Urine Ketones (Stick) Negative mg/dL (NEG) Urine Blood Large (NEG) Urine Nitrite Negative (NEG) Urine Bilirubin Negative (NEG) Urine Urobilinogen Dipstick 0.2 mg/dL (0.2 mg/dL) Urine Leukocyte Esterase Small (NEG) Urine RBC Tntc /HPF (0-2) Urine WBC 5-10 /HPF (0-4) Urine Squamous Epithelial Cells None /LPF Urine Bacteria 0 /HPF (0-FEW) Laboratory Tests Test 11/05/18 00:05 11/05/18 02:45 11/05/18 03:40 11/05/18 09:20 White Blood Count 7.9 x10^3/uL (4.0-11.0) 7.1 x10^3/uL (4.0-11.0) 5.6 x10^3/uL (4.0-11.0) Red Blood Count 2.80 x10^6/uL (4.30-5.70) 2.54 x10^6/uL (4.30-5.70) 2.44 x10^6/uL (4.30-5.70) Hemoglobin 8.5 g/dL (13.0-17.5) 7.7 g/dL (13.0-17.5) 7.4 g/dL (13.0-17.5) Hematocrit 26.3 % (39.0-53.0) 23.9 % (39.0-53.0) 22.8 % (39.0-53.0) Mean Corpuscular Volume 94 fL (79-100) 94 fL (79-100) 93 fL (79-100) Mean Corpuscular Hemoglobin 30 pg (25-35) 30 pg (25-35) 31 pg (25-35) Mean Corpuscular Hemoglobin Concent 32 g/dL (31-37) 32 g/dL (31-37) 33 g/dL (31-37) Red Cell Distribution Width 16.9 % (11.5-14.5) 16.8 % (11.5-14.5) 16.9 % (11.5-14.5) Platelet Count 253 x10^3/uL (140-400) 230 x10^3/uL (140-400) 203 x10^3/uL (140-400) Neutrophils (%) (Auto) 82 % (31-73) 72 % (31-73) 73 % (31-73) Lymphocytes (%) (Auto) 7 % (24-48) 17 % (24-48) 14 % (24-48) Monocytes (%) (Auto) 7 % (0-9) 7 % (0-9) 8 % (0-9) Eosinophils (%) (Auto) 3 % (0-3) 4 % (0-3) 5 % (0-3) Basophils (%) (Auto) 0 % (0-3) 0 % (0-3) 0 % (0-3) Neutrophils # (Auto) 6.5 x10^3uL (1.8-7.7) 5.1 x10^3uL (1.8-7.7) 4.1 x10^3uL (1.8-7.7) Lymphocytes # (Auto) 0.6 x10^3/uL (1.0-4.8) 1.2 x10^3/uL (1.0-4.8) 0.8 x10^3/uL (1.0-4.8) Monocytes # (Auto) 0.6 x10^3/uL (0.0-1.1) 0.5 x10^3/uL (0.0-1.1) 0.4 x10^3/uL (0.0-1.1) Eosinophils # (Auto) 0.3 x10^3/uL (0.0-0.7) 0.3 x10^3/uL (0.0-0.7) 0.3 x10^3/uL (0.0-0.7) Basophils # (Auto) 0.0 x10^3/uL (0.0-0.2) 0.0 x10^3/uL (0.0-0.2) 0.0 x10^3/uL (0.0-0.2) Prothrombin Time 13.3 SEC (11.7-14.0) Prothromb Time International Ratio 1.0 (0.8-1.1) Sodium Level 139 mmol/L (136-145) Potassium Level 5.0 mmol/L (3.5-5.1) Chloride Level 104 mmol/L (98-107) Carbon Dioxide Level 27 mmol/L (21-32) Anion Gap 8 (6-14) Blood Urea Nitrogen 38 mg/dL (8-26) Creatinine 1.7 mg/dL (0.7-1.3) Estimated GFR (Cockcroft-Gault) 38.6 BUN/Creatinine Ratio 22 (6-20) Glucose Level 111 mg/dL (70-99) Calcium Level 8.7 mg/dL (8.5-10.1) Total Bilirubin 0.3 mg/dL (0.2-1.0) Aspartate Amino Transf (AST/SGOT) 18 U/L (15-37) Alanine Aminotransferase (ALT/SGPT) 16 U/L (16-63) Alkaline Phosphatase 94 U/L (46-116) Total Protein 7.2 g/dL (6.4-8.2) Albumin 3.2 g/dL (3.4-5.0) Albumin/Globulin Ratio 0.8 (1.0-1.7) Urine Collection Type U cath Urine Color Red Urine Clarity Clear Urine pH 6.0 Urine Specific [place] <=1.005 Urine Protein 30 mg/dL (NEG-TRACE) Urine Glucose (UA) Negative mg/dL (NEG) Urine Ketones (Stick) Negative mg/dL (NEG) Urine Blood Large (NEG) Urine Nitrite Negative (NEG) Urine Bilirubin Negative (NEG) Urine Urobilinogen Dipstick 0.2 mg/dL (0.2 mg/dL) Urine Leukocyte Esterase Small (NEG) Urine RBC Tntc /HPF (0-2) Urine WBC 5-10 /HPF (0-4) Urine Squamous Epithelial Cells None /LPF Urine Bacteria 0 /HPF (0-FEW) Assessment/Plan Assessment/Plan CBI: Currently running well with light red output in return tubing. No clots. Nursing to continue to titrate to achieve light red to watermelon color. May irrigate PRN using piston syringe. Will need [facility] records, which they are currently working on getting. Difficulty getting detailed history due to hearing status and mild confusion on exam. Dr. Forrester to round on patient over the weekend. BEVERLY FORRESTER MD 11/05/18 1519: UROLOGY CONSULT Assessment/Plan Assessment/Plan ct a/p to ro organized clots. continue CBI. NPO at [place]. CHUY MICHAELS APRN Nov 05, 2018 11:04 BEVERLY FORRESTER MD Nov 05, 2018 15:19
--- NOTE | 2018-11-05 13:36 | NUR ---
SW following. Discussed with RN. Per previous visit notes, pt discharged home with [facility]. LAURO will continue to follow for discharge planning.
[2018-11-05 14:38] VITALS: BP 115/55
[2018-11-05] MEDS: FLUTICASONE 50MCG/NASAL SPRAY 16GM BOTTLE. NS SCH (14:46)
[2018-11-05] MEDS: CYANOCOBALAMIN (VITAMIN B-12) 1,000 MCG TABLET. PO SCH (14:47)
[2018-11-05] MEDS: MULTIVITAMIN I-VITE TABLET. PO SCH ×2 (14:47→21:40)
[2018-11-05] MEDS: FUROSEMIDE 20 MG TABLET PO SCH (14:47)
[2018-11-05] MEDS: POTASSIUM CHLORIDE 10 MEQ TABLET.ER. PO SCH (14:47)
[2018-11-05] MEDS: VANCOMYCIN 125 MG/2.5 ML ORAL SOLUTION. PO SCH ×4 (14:48→21:46)
[2018-11-05] MEDS: HYDROcodone/APAP 10/325 1 TAB TABLET PO PRN (14:59)
--- NOTE | 2018-11-05 16:58 | RAD ---
CT ABDOMEN PELVIS WO CONTRAST Indication: HEMATURIA Exposure: One or more of the following individualized dose reduction techniques were utilized for this examination: 1. Automated exposure control 2. Adjustment of the mA and/or kV according to patient size 3. Use of iterative reconstruction technique. Comparison: May 26, 2018 Contrast: No intravenous contrast given. No oral contrast per request. Evaluation of solid viscera, bowel and vasculature is compromised by the noncontrast technique. Lung bases are essentially clear. Coronary calcification. Liver grossly unremarkable. Spleen grossly unremarkable. Pancreas appears within normal limits. No evidence of adrenal mass. Exophytic lesion of the lower pole of the left kidney measures 22 mm,, and 16 Hounsfield units, compatible with a cyst. No evidence of hydronephrosis or renal calculus. It is difficult to follow the ureters due to metal artifact spine. No calcified gallstone. Aorta is calcified and tortuous. Dense calcifications at the major aortic branch origins. No gross aortic aneurysm. Inferior vena cava filter is again noted. No significant lymph node enlargement is suspected. No bowel obstruction. Moderate retained stool through the colon without definite acute colitis. Appendix is not clearly visualized. Urinary bladder contains a Paul catheter and is not distended, limiting evaluation. Small amount of air within the urinary bladder. No evidence of pelvic mass. Deformity or old fracture of the left pubic bone is again seen. Mild degenerative changes of both hips. Severe degenerative changes at the sacroiliac joints. Apparent sacral plasty identified. Lumbar spondylosis with postsurgical changes. Anterior subluxation of L4 and L5. These findings appear similar. IMPRESSION: 1. No evidence of renal calculus or hydronephrosis. Note that the pelvic ureters are difficult to follow due to the lack of much fat and metal artifact from spine fixation. 2. No definite acute findings. Electronically signed by: Taj Dowling MD (11/05/2018 4:55 PM) [id number]
[2018-11-05 19:00] VITALS: BP 117/58
[2018-11-05] MEDS ORDERED: RANI150T2 PO (20:12)
[2018-11-05] MEDS: CIPROFLOXACIN 400MG PREMIX 200 ML IV SCH (21:35)
[2018-11-05] MEDS: ZOLPIDEM 5 MG TABLET. PO SCH (21:39)
[2018-11-05] MEDS: traZODone 50 MG TABLET. PO SCH (21:40)
[2018-11-05] MEDS: NIACIN ER 500 MG TABLET.ER PO SCH (21:41)
[2018-11-05 22:31] VITALS: BP 115/56
--- NOTE | 2018-11-05 23:05 | NUR ---
Bag number 8 was clamped off d/t being empty and bag number 9 was hung for CBI starting at 2305. Addendum: 11/07/18 at 0100 by SHYANNE WILLIAM RN Wrong date for note. Note should be dated for 11/06/18. Timing correct.
[2018-11-06] VITALS (12 sets, daily range): BP systolic 99–131; BP diastolic 51–67
[2018-11-06] MEDS: IV NORMAL SALINE 1000ML BAG 1,000 ML IV SCH ×2 (05:26→15:00)
[2018-11-06] MEDS: CYANOCOBALAMIN (VITAMIN B-12) 1,000 MCG TABLET. PO SCH (08:42)
[2018-11-06] MEDS: FUROSEMIDE 20 MG TABLET PO SCH (08:42)
[2018-11-06] MEDS: POTASSIUM CHLORIDE 10 MEQ TABLET.ER. PO SCH (08:42)
[2018-11-06] MEDS: CIPROFLOXACIN 400MG PREMIX 200 ML IV SCH ×2 (08:44→20:39)
[2018-11-06] MEDS: VANCOMYCIN 125 MG/2.5 ML ORAL SOLUTION. PO SCH ×4 (08:44→20:40)
[2018-11-06] MEDS: FLUTICASONE 50MCG/NASAL SPRAY 16GM BOTTLE. NS SCH (08:45)
[2018-11-06 11:32] LABS: BASO % 0 % (0-3); EOS # 0.3 x10^3/uL (0.0-0.7); EOS % 6 % (0-3); LYMPH # 0.9 x10^3/uL (1.0-4.8); LYMPH % 17 % (24-48); MEAN CORPUSCULAR HEMOGLOBIN 30 pg (25-35); MEAN CORPUSCULAR HGB CONC 32 g/dL (31-37); MEAN CORPUSCULAR VOLUME 94 fL (79-100); MONO # 0.5 x10^3/uL (0.0-1.1); MONO % 8 % (0-9); NEUT # 3.8 x10^3uL (1.8-7.7); NEUT % 69 % (31-73); PLATELET COUNT 195 x10^3/uL (140-400); RED BLOOD COUNT 2.19 x10^6/uL (4.30-5.70); RED CELL DISTRIBUTION WIDTH 17.2 % (11.5-14.5); WHITE BLOOD COUNT 5.5 x10^3/uL (4.0-11.0)
[2018-11-06 11:38] LABS: HEMOGLOBIN 6.7 g/dL (13.0-17.5)
[2018-11-06 11:39] LABS: CALCIUM 8.2 mg/dL (8.5-10.1); CREATININE 1.4 mg/dL (0.7-1.3); GFR 48.3; HEMATOCRIT 20.6 % (39.0-53.0); POTASSIUM 4.4 mmol/L (3.5-5.1)
--- NOTE | 2018-11-06 12:11 | PDOC ---
Progress Note Subjective Subjective no acute events, small clots irrigsted today. ct with no large clot in bladder. ROS ROS No nausea No vomiting No pain No rash Vital Sign Vital Signs Vital Signs Date Time Temp Pulse Resp B/P (MAP) Pulse Ox O2 Delivery O2 Flow Rate FiO2 11/06/18 10:34 97.9 66 18 106/56 (73) 100 Room Air 97.9 Physical Exam PHYSICAL EXAM GENERAL: NAD, Alert HEENT: PERRL, OC/OP NECK: Supple, no JVD, no LN LUNGS: Clear HEART: S1S2, no gallop, no murmur ABD: Soft, NT, no organomegaly, no rebound EXT: No edema, no cyanosis GRAB SETTER: Alert, oriented x 3, no focal neurologic deficit SKIN: No rash IV: ok Labs Lab Laboratory Tests Test 11/06/18 10:50 White Blood Count 5.5 x10^3/uL (4.0-11.0) Red Blood Count 2.19 x10^6/uL (4.30-5.70) Hemoglobin 6.7 g/dL (13.0-17.5) Hematocrit 20.6 % (39.0-53.0) Mean Corpuscular Volume 94 fL (79-100) Mean Corpuscular Hemoglobin 30 pg (25-35) Mean Corpuscular Hemoglobin Concent 32 g/dL (31-37) Red Cell Distribution Width 17.2 % (11.5-14.5) Platelet Count 195 x10^3/uL (140-400) Neutrophils (%) (Auto) 69 % (31-73) Lymphocytes (%) (Auto) 17 % (24-48) Monocytes (%) (Auto) 8 % (0-9) Eosinophils (%) (Auto) 6 % (0-3) Basophils (%) (Auto) 0 % (0-3) Neutrophils # (Auto) 3.8 x10^3uL (1.8-7.7) Lymphocytes # (Auto) 0.9 x10^3/uL (1.0-4.8) Monocytes # (Auto) 0.5 x10^3/uL (0.0-1.1) Eosinophils # (Auto) 0.3 x10^3/uL (0.0-0.7) Basophils # (Auto) 0.0 x10^3/uL (0.0-0.2) Sodium Level 142 mmol/L (136-145) Potassium Level 4.4 mmol/L (3.5-5.1) Chloride Level 108 mmol/L (98-107) Carbon Dioxide Level 26 mmol/L (21-32) Anion Gap 8 (6-14) Blood Urea Nitrogen 23 mg/dL (8-26) Creatinine 1.4 mg/dL (0.7-1.3) Estimated GFR (Cockcroft-Gault) 48.3 Glucose Level 84 mg/dL (70-99) Calcium Level 8.2 mg/dL (8.5-10.1) Objective Assessment gh hx of ucb. Plan Plan of Care continue CBI. Clamp in am, if clear then may dc home w cath. yelena TORRES as OP for continuity of care. BEVERLY RODRIGUEZ MD Nov 06, 2018 12:11
--- NOTE | 2018-11-06 13:38 | PDOC ---
PROGRESS NOTES Chief Complaint Chief Complaint Gross hematuria History of bladder cancer History of essential hypertension Acute blood loss anemia secondary to hematuria Acute on chronic renal failure, patient etiology is most likely post renal vs vasomotor Plan: follow health care consultant recommendations. pain management repeat cbc awaiting records from [facility] restart home medications. further recommendations based on clinical course DVT prophylaxis: scd and teds. History of Present Illness History of Present Illness Patient much improved compared to admission. The patient's hematuria has improved still had some blood clots earlier in the shift with has result of his symptoms. 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, oriented x 3, no focal neurologic deficit SKIN: No rash IV: ok Lungs: Clear, Other Labs LABS Laboratory Tests Test 11/06/18 10:50 White Blood Count 5.5 x10^3/uL (4.0-11.0) Red Blood Count 2.19 x10^6/uL (4.30-5.70) Hemoglobin 6.7 g/dL (13.0-17.5) Hematocrit 20.6 % (39.0-53.0) Mean Corpuscular Volume 94 fL (79-100) Mean Corpuscular Hemoglobin 30 pg (25-35) Mean Corpuscular Hemoglobin Concent 32 g/dL (31-37) Red Cell Distribution Width 17.2 % (11.5-14.5) Platelet Count 195 x10^3/uL (140-400) Neutrophils (%) (Auto) 69 % (31-73) Lymphocytes (%) (Auto) 17 % (24-48) Monocytes (%) (Auto) 8 % (0-9) Eosinophils (%) (Auto) 6 % (0-3) Basophils (%) (Auto) 0 % (0-3) Neutrophils # (Auto) 3.8 x10^3uL (1.8-7.7) Lymphocytes # (Auto) 0.9 x10^3/uL (1.0-4.8) Monocytes # (Auto) 0.5 x10^3/uL (0.0-1.1) Eosinophils # (Auto) 0.3 x10^3/uL (0.0-0.7) Basophils # (Auto) 0.0 x10^3/uL (0.0-0.2) Sodium Level 142 mmol/L (136-145) Potassium Level 4.4 mmol/L (3.5-5.1) Chloride Level 108 mmol/L (98-107) Carbon Dioxide Level 26 mmol/L (21-32) Anion Gap 8 (6-14) Blood Urea Nitrogen 23 mg/dL (8-26) Creatinine 1.4 mg/dL (0.7-1.3) Estimated GFR (Cockcroft-Gault) 48.3 Glucose Level 84 mg/dL (70-99) Calcium Level 8.2 mg/dL (8.5-10.1) Assessment and Plan Assessmemt and Plan Problems Medical Problems: (1) Hematuria Status: Acute Comment Review of Relevant I have reviewed the following items ayo (where applicable) has been applied. Labs Laboratory Tests Test 11/05/18 00:05 11/05/18 02:45 11/05/18 03:40 11/05/18 09:20 White Blood Count 7.9 x10^3/uL (4.0-11.0) 7.1 x10^3/uL (4.0-11.0) 5.6 x10^3/uL (4.0-11.0) Red Blood Count 2.80 x10^6/uL (4.30-5.70) 2.54 x10^6/uL (4.30-5.70) 2.44 x10^6/uL (4.30-5.70) Hemoglobin 8.5 g/dL (13.0-17.5) 7.7 g/dL (13.0-17.5) 7.4 g/dL (13.0-17.5) Hematocrit 26.3 % (39.0-53.0) 23.9 % (39.0-53.0) 22.8 % (39.0-53.0) Mean Corpuscular Volume 94 fL (79-100) 94 fL (79-100) 93 fL (79-100) Mean Corpuscular Hemoglobin 30 pg (25-35) 30 pg (25-35) 31 pg (25-35) Mean Corpuscular Hemoglobin Concent 32 g/dL (31-37) 32 g/dL (31-37) 33 g/dL (31-37) Red Cell Distribution Width 16.9 % (11.5-14.5) 16.8 % (11.5-14.5) 16.9 % (11.5-14.5) Platelet Count 253 x10^3/uL (140-400) 230 x10^3/uL (140-400) 203 x10^3/uL (140-400) Neutrophils (%) (Auto) 82 % (31-73) 72 % (31-73) 73 % (31-73) Lymphocytes (%) (Auto) 7 % (24-48) 17 % (24-48) 14 % (24-48) Monocytes (%) (Auto) 7 % (0-9) 7 % (0-9) 8 % (0-9) Eosinophils (%) (Auto) 3 % (0-3) 4 % (0-3) 5 % (0-3) Basophils (%) (Auto) 0 % (0-3) 0 % (0-3) 0 % (0-3) Neutrophils # (Auto) 6.5 x10^3uL (1.8-7.7) 5.1 x10^3uL (1.8-7.7) 4.1 x10^3uL (1.8-7.7) Lymphocytes # (Auto) 0.6 x10^3/uL (1.0-4.8) 1.2 x10^3/uL (1.0-4.8) 0.8 x10^3/uL (1.0-4.8) Monocytes # (Auto) 0.6 x10^3/uL (0.0-1.1) 0.5 x10^3/uL (0.0-1.1) 0.4 x10^3/uL (0.0-1.1) Eosinophils # (Auto) 0.3 x10^3/uL (0.0-0.7) 0.3 x10^3/uL (0.0-0.7) 0.3 x10^3/uL (0.0-0.7) Basophils # (Auto) 0.0 x10^3/uL (0.0-0.2) 0.0 x10^3/uL (0.0-0.2) 0.0 x10^3/uL (0.0-0.2) Prothrombin Time 13.3 SEC (11.7-14.0) Prothromb Time International Ratio 1.0 (0.8-1.1) Sodium Level 139 mmol/L (136-145) Potassium Level 5.0 mmol/L (3.5-5.1) Chloride Level 104 mmol/L (98-107) Carbon Dioxide Level 27 mmol/L (21-32) Anion Gap 8 (6-14) Blood Urea Nitrogen 38 mg/dL (8-26) Creatinine 1.7 mg/dL (0.7-1.3) Estimated GFR (Cockcroft-Gault) 38.6 BUN/Creatinine Ratio 22 (6-20) Glucose Level 111 mg/dL (70-99) Calcium Level 8.7 mg/dL (8.5-10.1) Total Bilirubin 0.3 mg/dL (0.2-1.0) Aspartate Amino Transf (AST/SGOT) 18 U/L (15-37) Alanine Aminotransferase (ALT/SGPT) 16 U/L (16-63) Alkaline Phosphatase 94 U/L (46-116) Total Protein 7.2 g/dL (6.4-8.2) Albumin 3.2 g/dL (3.4-5.0) Albumin/Globulin Ratio 0.8 (1.0-1.7) Urine Collection Type U cath Urine Color Red Urine Clarity Clear Urine pH 6.0 Urine Specific [place] <=1.005 Urine Protein 30 mg/dL (NEG-TRACE) Urine Glucose (UA) Negative mg/dL (NEG) Urine Ketones (Stick) Negative mg/dL (NEG) Urine Blood Large (NEG) Urine Nitrite Negative (NEG) Urine Bilirubin Negative (NEG) Urine Urobilinogen Dipstick 0.2 mg/dL (0.2 mg/dL) Urine Leukocyte Esterase Small (NEG) Urine RBC Tntc /HPF (0-2) Urine WBC 5-10 /HPF (0-4) Urine Squamous Epithelial Cells None /LPF Urine Bacteria 0 /HPF (0-FEW) Test 11/06/18 10:50 White Blood Count 5.5 x10^3/uL (4.0-11.0) Red Blood Count 2.19 x10^6/uL (4.30-5.70) Hemoglobin 6.7 g/dL (13.0-17.5) Hematocrit 20.6 % (39.0-53.0) Mean Corpuscular Volume 94 fL (79-100) Mean Corpuscular Hemoglobin 30 pg (25-35) Mean Corpuscular Hemoglobin Concent 32 g/dL (31-37) Red Cell Distribution Width 17.2 % (11.5-14.5) Platelet Count 195 x10^3/uL (140-400) Neutrophils (%) (Auto) 69 % (31-73) Lymphocytes (%) (Auto) 17 % (24-48) Monocytes (%) (Auto) 8 % (0-9) Eosinophils (%) (Auto) 6 % (0-3) Basophils (%) (Auto) 0 % (0-3) Neutrophils # (Auto) 3.8 x10^3uL (1.8-7.7) Lymphocytes # (Auto) 0.9 x10^3/uL (1.0-4.8) Monocytes # (Auto) 0.5 x10^3/uL (0.0-1.1) Eosinophils # (Auto) 0.3 x10^3/uL (0.0-0.7) Basophils # (Auto) 0.0 x10^3/uL (0.0-0.2) Sodium Level 142 mmol/L (136-145) Potassium Level 4.4 mmol/L (3.5-5.1) Chloride Level 108 mmol/L (98-107) Carbon Dioxide Level 26 mmol/L (21-32) Anion Gap 8 (6-14) Blood Urea Nitrogen 23 mg/dL (8-26) Creatinine 1.4 mg/dL (0.7-1.3) Estimated GFR (Cockcroft-Gault) 48.3 Glucose Level 84 mg/dL (70-99) Calcium Level 8.2 mg/dL (8.5-10.1) Laboratory Tests Test 11/06/18 10:50 White Blood Count 5.5 x10^3/uL (4.0-11.0) Red Blood Count 2.19 x10^6/uL (4.30-5.70) Hemoglobin 6.7 g/dL (13.0-17.5) Hematocrit 20.6 % (39.0-53.0) Mean Corpuscular Volume 94 fL (79-100) Mean Corpuscular Hemoglobin 30 pg (25-35) Mean Corpuscular Hemoglobin Concent 32 g/dL (31-37) Red Cell Distribution Width 17.2 % (11.5-14.5) Platelet Count 195 x10^3/uL (140-400) Neutrophils (%) (Auto) 69 % (31-73) Lymphocytes (%) (Auto) 17 % (24-48) Monocytes (%) (Auto) 8 % (0-9) Eosinophils (%) (Auto) 6 % (0-3) Basophils (%) (Auto) 0 % (0-3) Neutrophils # (Auto) 3.8 x10^3uL (1.8-7.7) Lymphocytes # (Auto) 0.9 x10^3/uL (1.0-4.8) Monocytes # (Auto) 0.5 x10^3/uL (0.0-1.1) Eosinophils # (Auto) 0.3 x10^3/uL (0.0-0.7) Basophils # (Auto) 0.0 x10^3/uL (0.0-0.2) Sodium Level 142 mmol/L (136-145) Potassium Level 4.4 mmol/L (3.5-5.1) Chloride Level 108 mmol/L (98-107) Carbon Dioxide Level 26 mmol/L (21-32) Anion Gap 8 (6-14) Blood Urea Nitrogen 23 mg/dL (8-26) Creatinine 1.4 mg/dL (0.7-1.3) Estimated GFR (Cockcroft-Gault) 48.3 Glucose Level 84 mg/dL (70-99) Calcium Level 8.2 mg/dL (8.5-10.1) Medications Current Medications Sodium Chloride 500 ml @ 500 mls/hr 1X ONCE IV Last administered on 11/05/18at 02:56; Start 11/05/18 at 00:45; Stop 11/05/18 at 01:44; Status DC Sodium Chloride 1,000 ml @ 75 mls/hr [id number] IV Last administered on 11/05/18at 01:45; Start 11/05/18 at 01:45; Stop 11/06/18 at 01:44; Status DC Lidocaine HCl (Glydo (Lidocaine) Jelly) 6 ibis [facility]-MED ONCE .ROUTE ; Start at 01:27; Stop 11/05/18 at 01:28; Status DC Ciprofloxacin/ Dextrose 200 ml @ 200 mls/hr 1X ONCE IV Last administered on at 04:43; Start 11/05/18 at 04:30; Stop 11/05/18 at 05:29; Status DC Sodium Chloride 1,000 ml @ 100 mls/hr Q10H IV Last administered on 11/06/18at 05 :26; Start 11/05/18 at 09:00 Ondansetron HCl (Zofran) 4 mg PRN Q4HRS PRN IV NAUSEA/VOMITING; Start 11/05/18 at 08:45 Zolpidem Tartrate (Ambien) 5 mg PRN QHS PRN PO INSOMNIA; Start 11/05/18 at 08:45 Acetaminophen (Tylenol) 650 mg PRN Q4HRS PRN PO TEMP OVER 100.4F OR MILD PAIN; Start 11/05/18 at 08:45 Lorazepam (Ativan) 0.5 mg PRN Q4HRS PRN PO ANXIETY / AGITATION; Start 11/05/18 at 08:45 Hydromorphone HCl (Dilaudid) 1 mg PRN Q2HRS PRN IV SEVERE PAIN; Start 11/05/18 at 08:45 Belladonna Alkaloids/Opium (B & O) 1 supp PRN Q12HR PRN OR BLADDER SPASM; Start 11/05/18 at 08:45 Ciprofloxacin/ Dextrose 200 ml @ 200 mls/hr Q12HR IV Last administered on at 08:44; Start 11/05/18 at 21:00 Cyanocobalamin (Vitamin B-12) 1,000 mcg DAILY PO Last administered on 11/06/18at 08:42; Start 11/05/18 at 09:30 Docusate Sodium (Colace) 100 mg PRN DAILY PRN PO CONSTIPATION 1ST CHOICE; Start 11/05/18 at 08:45 Furosemide (Lasix) 20 mg DAILY PO Last administered on 11/06/18 08:42; Start at 09:30 Acetaminophen/ Hydrocodone Bitart (Lortab 10/325) 1 tab PRN Q6HRS PRN PO MODERATE PAIN Last administered on 11/05/18 14:59; Start 11/05/18 at 08:45 Potassium Chloride (Klor-Con) 10 meq DAILY PO Last administered on 11/06/18 08: 42; Start 11/05/18 at 09:30 Trazodone HCl (Desyrel) 75 mg HS PO Last administered on 11/05/18 21:40; Start 11/05/18 at 21:00 Zolpidem Tartrate (Ambien) 5 mg QHS PO Last administered on 11/05/18 21:39; Start 11/05/18 at 21:00 Fluticasone Propionate (Flonase) 2 spray DAILY NS Last administered on 08:45; Start 11/05/18 at 10:00 Niacin (Slo-Niacin) 500 mg QHS PO Last administered on 11/05/18 21:41; Start at 21:00 Phenyleph/Shark Oil/Min Oil/Petrol (Preparation H) 1 ibis PRN BID PRN RC RECTAL PAIN; Start 11/05/18 at 09:00 Polyethylene Glycol (miraLAX PACKET) 17 gm PRN DAILY PRN PO CONSTIPATION 2ND CHOICE; Start 11/05/18 at 09:00 Multivitamins/ Minerals (I-Nava) 1 tab BID PO Last administered on 11/05/18 21: 40; Start 11/05/18 at 09:30 Vancomycin HCl (Vancomycin Oral Solution) 125 mg [id number] PO Last administered on 11/06/18 08:44; Start 11/05/18 at 09:30 Active Scripts Active Reported Ranitidine Hcl 150 Mg Tablet 150 Mg PO BID Trazodone Hcl 50 Mg Tablet 75 Mg PO HS Ciprofloxacin Hcl 500 Mg Tablet 1 Tab PO BID Furosemide 20 Mg Tablet 1-2 Tab PO DAILY Preservision Areds Tablet (Vit A/Vit C/Vit E/Zinc/Copper) 1 Each Tablet 1 Each PO BID Niacin 500 Mg Capsule (Niacin (Inositol Niacinate)) 500 Mg Capsule 500 Mg PO DAILY Docusate Sodium 100 Mg Capsule 1 Cap PO DAILY PRN Ambien (Zolpidem Tartrate) 5 Mg Tablet 1 Tab PO QHS Vitamin B-12 (Cyanocobalamin (Vitamin B-12)) 1,000 Mcg Tablet 1 Tab PO DAILY Potassium Chloride 10 Meq Capsule.er 10 Meq PO DAILY GIVE 1-2 TABLETS Polyethylene Glycol 3350 255 Gm Powder 17 Gm PO DAILY PRN Hydrocodone-Apap 10-325 (Hydrocodone Bit/Acetaminophen) 1 Each Tablet 1 Tab PO PRN Q6HRS PRN Preparation H Cream (Phenyleph/Pramoxin/Glycr/W.pet) 26 Gm Cream..g. 1 Ibis RC PRN BID PRN Flonase Allergy Relief (Fluticasone Propionate) 9.9 Ml [place].susp 2 [place] NS DAILY Vitals/I & O Vital Sign - Last 24 Hours 11/05/18 11/05/18 11/05/18 11/05/18 14:38 14:59 15:59 19:00 Temp 97.8 98.6 97.8 98.6 Pulse 70 71 Resp 18 18 17 18 B/P (MAP) 115/55 (75) 117/58 (77) Pulse Ox 100 100 100 100 O2 Delivery Room Air Room Air Room Air Room Air 11/05/18 11/05/18 11/06/18 11/06/18 20:00 22:31 02:47 06:55 Temp 97.5 97.8 98.7 97.5 97.8 98.7 Pulse 67 70 65 Resp 16 17 17 B/P (MAP) 115/56 (75) 99/52 (68) 114/58 (76) Pulse Ox 100 95 99 O2 Delivery Room Air Room Air Room Air Room Air 11/06/18 11/06/18 08:00 10:34 Temp 97.9 97.9 Pulse 66 Resp 18 B/P (MAP) 106/56 (73) Pulse Ox 100 O2 Delivery Room Air Room Air Intake and Output 11/05/18 11/05/18 11/06/18 15:00 23:00 07:00 Intake Total 500 ml Output Total 13128 ml 97283 ml Balance -39440 ml -12153 ml GABY CHAUDHRY MD Nov 06, 2018 13:38
--- NOTE | 2018-11-06 14:26 | NUR ---
Bag number 6 was hung for CBI @[id number].
--- NOTE | 2018-11-06 14:27 | NUR ---
Bag number 7 was hung for CBI @ [phone]
[2018-11-06] MEDS: MULTIVITAMIN I-VITE TABLET. PO SCH ×2 (14:34→20:38)
[2018-11-06] MEDS: HYDROcodone/APAP 10/325 1 TAB TABLET PO PRN (17:13)
[2018-11-06] MEDS: NIACIN ER 500 MG TABLET.ER PO SCH (20:38)
[2018-11-06] MEDS: traZODone 50 MG TABLET. PO SCH (20:39)
[2018-11-06] MEDS: ZOLPIDEM 5 MG TABLET. PO SCH (20:39)
--- NOTE | 2018-11-06 22:17 | NUR ---
Bag number 7 was clamped off d/t being empty and bag number 8 was hung for CBI starting at 1910.
[2018-11-07] MEDS: IV NORMAL SALINE 1000ML BAG 1,000 ML IV SCH ×2 (00:45→11:00)
[2018-11-07 03:00] VITALS: BP 116/60
--- NOTE | 2018-11-07 05:10 | NUR ---
Bag number 9 was clamped off d/t being empty and bag number 10 was hung for CBI starting at 0510.
[2018-11-07 07:00] VITALS: BP 120/55
[2018-11-07] MEDS: VANCOMYCIN 125 MG/2.5 ML ORAL SOLUTION. PO SCH ×4 (09:00→20:29)
[2018-11-07] MEDS: FLUTICASONE 50MCG/NASAL SPRAY 16GM BOTTLE. NS SCH (09:00)
[2018-11-07] MEDS: CYANOCOBALAMIN (VITAMIN B-12) 1,000 MCG TABLET. PO SCH (10:36)
[2018-11-07] MEDS: MULTIVITAMIN I-VITE TABLET. PO SCH ×2 (10:36→20:30)
[2018-11-07] MEDS: POTASSIUM CHLORIDE 10 MEQ TABLET.ER. PO SCH (10:37)
[2018-11-07] MEDS: HYDROcodone/APAP 10/325 1 TAB TABLET PO PRN (10:37)
[2018-11-07 10:38] VITALS: BP 166/76
[2018-11-07] MEDS: FUROSEMIDE 20 MG TABLET PO SCH (10:38)
[2018-11-07] MEDS: CIPROFLOXACIN 400MG PREMIX 200 ML IV SCH ×2 (10:39→20:28)
--- NOTE | 2018-11-07 10:47 | NUR ---
CONTINUOS BLADDER IRRIGATION CLAMPED AT THIS TIME PER THIS [employer]ING GOODS SALESPERSON REQUESTED BT DR. CHAUDHRY. URINE IN GOLD CATH BAG BRIGHT YELLOW, NO CLOTS NOTICED. WILL MONITOR.
--- NOTE | 2018-11-07 12:21 | PDOC ---
PROGRESS NOTES Chief Complaint Chief Complaint Gross hematuria History of bladder cancer History of essential hypertension Acute blood loss anemia secondary to hematuria Acute on chronic renal failure, patient etiology is most likely post renal vs vasomotor Plan: follow recruiting consultant recommendations. pain management stable h and h clamp CBI awaiting records from [facility] restart home medications. further recommendations based on clinical course DVT prophylaxis: scd and teds. History of Present Illness History of Present Illness Patient much improved compared to admission. The patient's hematuria has improved still had some blood clots earlier in the shift with has result of his symptoms. 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 Labs Laboratory Tests Test 11/06/18 10:50 11/07/18 05:20 White Blood Count 5.5 x10^3/uL (4.0-11.0) Red Blood Count 2.19 x10^6/uL (4.30-5.70) Hemoglobin 6.7 g/dL (13.0-17.5) 7.8 g/dL (13.0-17.5) Hematocrit 20.6 % (39.0-53.0) Mean Corpuscular Volume 94 fL (79-100) Mean Corpuscular Hemoglobin 30 pg (25-35) Mean Corpuscular Hemoglobin Concent 32 g/dL (31-37) Red Cell Distribution Width 17.2 % (11.5-14.5) Platelet Count 195 x10^3/uL (140-400) Neutrophils (%) (Auto) 69 % (31-73) Lymphocytes (%) (Auto) 17 % (24-48) Monocytes (%) (Auto) 8 % (0-9) Eosinophils (%) (Auto) 6 % (0-3) Basophils (%) (Auto) 0 % (0-3) Neutrophils # (Auto) 3.8 x10^3uL (1.8-7.7) Lymphocytes # (Auto) 0.9 x10^3/uL (1.0-4.8) Monocytes # (Auto) 0.5 x10^3/uL (0.0-1.1) Eosinophils # (Auto) 0.3 x10^3/uL (0.0-0.7) Basophils # (Auto) 0.0 x10^3/uL (0.0-0.2) Sodium Level 142 mmol/L (136-145) Potassium Level 4.4 mmol/L (3.5-5.1) Chloride Level 108 mmol/L (98-107) Carbon Dioxide Level 26 mmol/L (21-32) Anion Gap 8 (6-14) Blood Urea Nitrogen 23 mg/dL (8-26) Creatinine 1.4 mg/dL (0.7-1.3) Estimated GFR (Cockcroft-Gault) 48.3 Glucose Level 84 mg/dL (70-99) Calcium Level 8.2 mg/dL (8.5-10.1) Laboratory Tests Test 11/07/18 05:20 Hemoglobin 7.8 g/dL (13.0-17.5) Microbiology 11/05/18 Urine Culture - Final, Complete 11/05/18 Urine Culture Result 1 (ISABELLE) - Final, Complete Medications Current Medications Sodium Chloride 500 ml @ 500 mls/hr 1X ONCE IV Last administered on 11/05/18at 02:56; Start 11/05/18 at 00:45; Stop 11/05/18 at 01:44; Status DC Sodium Chloride 1,000 ml @ 75 mls/hr [id number] IV Last administered on 11/05/18at 01:45; Start 11/05/18 at 01:45; Stop 11/06/18 at 01:44; Status DC Lidocaine HCl (Glydo (Lidocaine) Jelly) 6 ibis [facility]-MED ONCE .ROUTE ; Start at 01:27; Stop 11/05/18 at 01:28; Status DC Ciprofloxacin/ Dextrose 200 ml @ 200 mls/hr 1X ONCE IV Last administered on at 04:43; Start 11/05/18 at 04:30; Stop 11/05/18 at 05:29; Status DC Sodium Chloride 1,000 ml @ 100 mls/hr Q10H IV Last administered on 11/07/18at 00:45; Start 11/05/18 at 09:00 Ondansetron HCl (Zofran) 4 mg PRN Q4HRS PRN IV NAUSEA/VOMITING; Start 11/05/18 at 08:45 Zolpidem Tartrate (Ambien) 5 mg PRN QHS PRN PO INSOMNIA; Start 11/05/18 at 08:45 Acetaminophen (Tylenol) 650 mg PRN Q4HRS PRN PO TEMP OVER 100.4F OR MILD PAIN; Start 11/05/18 at 08:45 Lorazepam (Ativan) 0.5 mg PRN Q4HRS PRN PO ANXIETY / AGITATION; Start 11/05/18 at 08:45 Hydromorphone HCl (Dilaudid) 1 mg PRN Q2HRS PRN IV SEVERE PAIN; Start 11/05/18 at 08:45 Belladonna Alkaloids/Opium (B & O) 1 supp PRN Q12HR PRN CT BLADDER SPASM; Start 11/05/18 at 08:45 Ciprofloxacin/ Dextrose 200 ml @ 200 mls/hr Q12HR IV Last administered on 11/07at 10:39; Start 11/05/18 at 21:00 Cyanocobalamin (Vitamin B-12) 1,000 mcg DAILY PO Last administered on 10:36; Start 11/05/18 at 09:30 Docusate Sodium (Colace) 100 mg PRN DAILY PRN PO CONSTIPATION 1ST CHOICE Last administered on 11/07/18 10:36; Start 11/05/18 at 08:45 Furosemide (Lasix) 20 mg DAILY PO Last administered on 11/07/18at 10:38; Start 11/05/18 at 09:30 Acetaminophen/ Hydrocodone Bitart (Lortab 10/325) 1 tab PRN Q6HRS PRN PO MODERATE PAIN Last administered on 11/07/18 10:37; Start 11/05/18 at 08:45 Potassium Chloride (Klor-Con) 10 meq DAILY PO Last administered on 11/07/18 10 :37; Start 11/05/18 at 09:30 Trazodone HCl (Desyrel) 75 mg HS PO Last administered on 11/06/18 20:39; Start 11/05/18 at 21:00 Zolpidem Tartrate (Ambien) 5 mg QHS PO Last administered on 11/06/18 20:39; Start 11/05/18 at 21:00 Fluticasone Propionate (Flonase) 2 spray DAILY NS Last administered on 08:45; Start 11/05/18 at 10:00 Niacin (Slo-Niacin) 500 mg QHS PO Last administered on 11/06/18 20:38; Start at 21:00 Phenyleph/Shark Oil/Min Oil/Petrol (Preparation H) 1 ibis PRN BID PRN RC RECTAL PAIN; Start 11/05/18 at 09:00 Polyethylene Glycol (miraLAX PACKET) 17 gm PRN DAILY PRN PO CONSTIPATION 2ND CHOICE Last administered on 11/07/18 10:38; Start 11/05/18 at 09:00 Multivitamins/ Minerals (I-Nava) 1 tab BID PO Last administered on 11/07/18 10 :36; Start 11/05/18 at 09:30 Vancomycin HCl (Vancomycin Oral Solution) 125 mg [id number] PO Last administered on 11/06/18 20:40; Start 11/05/18 at 09:30 Active Scripts Active Reported Ranitidine Hcl 150 Mg Tablet 150 Mg PO BID Trazodone Hcl 50 Mg Tablet 75 Mg PO HS Ciprofloxacin Hcl 500 Mg Tablet 1 Tab PO BID Furosemide 20 Mg Tablet 1-2 Tab PO DAILY Preservision Areds Tablet (Vit A/Vit C/Vit E/Zinc/Copper) 1 Each Tablet 1 Each PO BID Niacin 500 Mg Capsule (Niacin (Inositol Niacinate)) 500 Mg Capsule 500 Mg PO DAILY Docusate Sodium 100 Mg Capsule 1 Cap PO DAILY PRN Ambien (Zolpidem Tartrate) 5 Mg Tablet 1 Tab PO QHS Vitamin B-12 (Cyanocobalamin (Vitamin B-12)) 1,000 Mcg Tablet 1 Tab PO DAILY Potassium Chloride 10 Meq Capsule.er 10 Meq PO DAILY GIVE 1-2 TABLETS Polyethylene Glycol 3350 255 Gm Powder 17 Gm PO DAILY PRN Hydrocodone-Apap 10-325 (Hydrocodone Bit/Acetaminophen) 1 Each Tablet 1 Tab PO PRN Q6HRS PRN Preparation H Cream (Phenyleph/Pramoxin/Glycr/W.pet) 26 Gm Cream..g. 1 Ibis RC PRN BID PRN Flonase Allergy Relief (Fluticasone Propionate) 9.9 Ml [place].susp 2 [place] NS DAILY Vitals/I & O Vital Sign - Last 24 Hours 11/06/18 11/06/18 11/06/18 11/06/18 14:21 14:36 14:51 15:16 Temp 97.9 98.3 97.9 98.3 97.9 98.3 97.9 98.3 Pulse 72 66 73 35 Resp 16 16 14 16 B/P (MAP) 110/56 109/53 122/62 109/53 (71) Pulse Ox 100 O2 Delivery Room Air 11/06/18 11/06/18 11/06/18 11/06/18 15:51 16:51 17:13 17:43 Temp 98.1 98.4 98.6 98.1 98.4 98.6 Pulse 71 67 71 Resp 16 16 20 16 B/P (MAP) 110/55 131/63 108/67 Pulse Ox 93 O2 Delivery Room Air 11/06/18 11/06/18 11/06/18 11/07/18 19:00 20:00 22:53 03:00 Temp 98.5 98.2 98.2 98.5 98.2 98.2 Pulse 74 71 75 Resp 17 18 19 B/P (MAP) 121/54 (76) 102/51 (68) 116/60 (78) Pulse Ox 96 99 98 O2 Delivery Room Air Room Air Room Air Room Air 11/07/18 11/07/18 11/07/18 07:00 10:37 10:38 Temp 98.0 97.9 98.0 97.9 Pulse 60 85 Resp 18 20 18 B/P (MAP) 120/55 (76) 166/76 (106) Pulse Ox 99 94 100 O2 Delivery Room Air Room Air Room Air Intake and Output 11/06/18 11/06/18 11/07/18 15:00 23:00 07:00 Intake Total 300 ml 300 ml Output Total 5650 ml 5000 ml 5500 ml Balance -5350 ml -4700 ml -5500 ml GABY CHAUDHRY MD Nov 07, 2018 12:21
[2018-11-07 14:31] VITALS: BP 125/62
--- NOTE | 2018-11-07 14:34 | PDOC ---
Progress Note Subjective Subjective no acute events, urine is clear, CBI is clamped ROS ROS No nausea No vomiting No pain No rash Vital Sign Vital Signs Vital Signs Date Time Temp Pulse Resp B/P (MAP) Pulse Ox O2 Delivery O2 Flow Rate FiO2 11/07/18 14:31 97.7 84 18 125/62 (83) 98 Room Air 97.7 Physical Exam PHYSICAL EXAM GENERAL: NAD, Alert HEENT: PERRL, OC/OP NECK: Supple, no JVD, no LN LUNGS: Clear HEART: S1S2, no gallop, no murmur ABD: Soft, NT, no organomegaly, no rebound EXT: No edema, no cyanosis MANAGER SOURCING: Alert, oriented x 3, no focal neurologic deficit SKIN: No rash IV: ok Labs Lab Laboratory Tests Test 11/07/18 05:20 Hemoglobin 7.8 g/dL (13.0-17.5) Objective Assessment gh hx of ucb. Plan Plan of Care dc cath in am. December dc home after voiding trial. yelena TORRES as OP for continuity of care. BEVERLY RODRIGUEZ MD Nov 07, 2018 14:34
[2018-11-07 19:00] VITALS: BP 106/64
[2018-11-07] MEDS: ZOLPIDEM 5 MG TABLET. PO SCH (20:30)
[2018-11-07] MEDS: traZODone 50 MG TABLET. PO SCH (20:30)
[2018-11-07] MEDS: NIACIN ER 500 MG TABLET.ER PO SCH (20:30)
[2018-11-07 23:00] VITALS: BP 117/41
[2018-11-08] MEDS: IV NORMAL SALINE 1000ML BAG 1,000 ML IV SCH ×3 (01:45→17:00)
[2018-11-08 03:00] VITALS: BP 104/46
[2018-11-08 07:00] VITALS: BP 104/47
[2018-11-08] MEDS: POTASSIUM CHLORIDE 10 MEQ TABLET.ER. PO SCH (08:30)
[2018-11-08] MEDS: CYANOCOBALAMIN (VITAMIN B-12) 1,000 MCG TABLET. PO SCH (08:30)
[2018-11-08] MEDS: FLUTICASONE 50MCG/NASAL SPRAY 16GM BOTTLE. NS SCH (08:30)
[2018-11-08] MEDS: MULTIVITAMIN I-VITE TABLET. PO SCH ×2 (08:30→21:12)
[2018-11-08] MEDS: CIPROFLOXACIN 400MG PREMIX 200 ML IV SCH (08:31)
[2018-11-08] MEDS: FUROSEMIDE 20 MG TABLET PO SCH (08:33)
[2018-11-08] MEDS: VANCOMYCIN 125 MG/2.5 ML ORAL SOLUTION. PO SCH ×2 (09:31→14:59)
--- NOTE | 2018-11-08 10:13 | PDOC ---
CHUY MICHAELS INSTRUCTIONAL DESIGN CONSULTANT 11/08/18 1013: SUBJECTIVE Subjective Offered patient a voiding trial, but he does not want to do this as he is not moving around much and states he has a history of "neurogenic bladder." OBJECTIVE Objective Physical Exam: General appearance: Alert and Oriented. Hard of hearing Head: Normocephalic, without obvious abnormality Eyes: conjunctivae/corneas clear. PERRL, EOM's intact. Fundi benign Back: negative, no CVA pain bilaterally. Lungs: Regular respirations, non labored breathing Abdomen: soft, non-tender. No masses, no organomegaly Pelvic: + 3 way pack with port clamped, draining clear yellow urine with occasional small blood clot in tubing. Device in good working order. Vital Signs Vital Signs Date Time Temp Pulse Resp B/P (MAP) Pulse Ox O2 Delivery O2 Flow Rate FiO2 11/08/18 07:00 98.8 69 18 104/47 (66) 97 Room Air 98.8 11/08/18 03:00 98.8 69 18 104/46 (65) 95 Room Air 98.8 11/07/18 23:00 99.0 101 19 117/41 (66) 97 Room Air 99.0 11/07/18 19:45 Room Air 11/07/18 19:00 100.1 84 16 106/64 (78) 99 Room Air 100.1 11/07/18 14:31 97.7 84 18 125/62 (83) 98 Room Air 97.7 11/07/18 11:40 20 94 Room Air 11/07/18 10:38 97.9 85 18 166/76 (106) 100 Room Air 97.9 11/07/18 10:37 20 94 Room Air I & O Intake and Output 11/08/18 06:59 Intake Total 1200 ml Output Total 3700 ml Balance -2500 ml Intake Oral 1200 ml Output Urine Total 3700 ml # Bowel Movements 1 PHYSICAL EXAM Physical Exam Physical Exam: General appearance: Alert and Oriented. Hard of hearing Head: Normocephalic, without obvious abnormality Eyes: conjunctivae/corneas clear. PERRL, EOM's intact. Fundi benign Back: negative, no CVA pain bilaterally. Lungs: Regular respirations, non labored breathing Abdomen: soft, non-tender. No masses, no organomegaly Pelvic: + 3 way pack with port clamped, draining clear yellow urine with occasional small blood clot in tubing. Device in good working order. ASSESSMENT/PLAN Assessment/Plan Hematuria-Resolved at this time. Pack catheter-Records are in from . Reviewed note from 10/23/[address] Hector Castle of . In this record it states that patient has a prior history of neurogenic bladder secondary to spinal surgery 06/09/15 and that it is unclear if he can void spontaneously. He reported being straight cathed at a prior nursing facility to Dr. Castle, but it is unclear which facility or how many times a day he required straight cathing. The ER physician had staff insert a Pack catheter on this date (10/23/18) and instructed him to follow up as soon as possible for a visit with Urology. In light of these findings, plus patient request to leave Pack in place, I recommend he discharge with Pack in place, please make sure CBI port is securely capped upon discharge. Follow up with Urology within the next two weeks for further care. Discussed above with attending RN Could leave from a Urology perspective whenever medical team is ready, but will follow while in house. Problems: (1) Hematuria BEVERLY RODRIGUEZ MD 11/08/18 1057: ASSESSMENT/PLAN Assessment/Plan agree w above Problem Qualifiers (1) Hematuria: Hematuria type: gross Qualified Codes: R31.0 - Gross hematuria CHUY MICHAELS APRN Nov 08, 2018 10:13 BEVERLY RODRIGUEZ MD Nov 08, 2018 10:57
[2018-11-08 10:51] VITALS: BP 103/57
--- NOTE | 2018-11-08 12:57 | NUR ---
SW following. Discussed with RN. SW awaiting PT/OT to determine pt's discharge needs. SW will continue to follow.
--- NOTE | 2018-11-08 13:57 | SNU/HH DC ---
DISCHARGE WITH HOME HEALTH DISCHARGE INFORMATION: Discharge Date: Nov 08, 2018 Final Diagnosis: Problems Medical Problems: (1) Hematuria Status: Acute Condition on Discharge: Stable CODE STATUS: Code Status: Full HOME HEALTH: Face to Face: I certify this patient is under my care and that I, or a nurse practitioner or physician's executive sales assistant working with me, had a face to face encounter that meets the physician face to face encounter requirements with this patient on []. Physical Therapy For: Evalulation/Treatment Occupational Therapy For: Evaluation/Treatment POST DISCHARGE ORDERS: Activity Instructions for Disc: Activity as tolerated Weight Bearing Status after Di: As tolerated Bathing Instructions: No Tub Bath until see DIET AFTER DISCHARGE: Regular Wound/Incision Care: No wound care needed CHECKS AFTER DISCHARGE: Checks after discharge: Check your Temp as needed TREATMENT/EQUIPMENT ORDERS: Adaptive Equipment Issued: Front wheeled walker CERTIFICATION STATEMENT: Certification Statement: Certification Statement: Based on the above finding, I certify that this patient is confined to the home and needs intermittent senior living care, physical therapy and/or speech therapy, or continues to need occupational therapy.~ This patient is under my care, and I have initiated the establishment of the plan of care.~ This patient will be followed by myself or a community physician who will periodically review the plan of care. Home Meds Reported Medications Ranitidine Hcl (RANITIDINE HCL) 150 Mg Tablet, 150 MG PO BID for reflux 11/05/18 Trazodone Hcl (TRAZODONE HCL) 50 Mg Tablet, 75 MG PO HS for INSOMNIA 11/05/18 Ciprofloxacin Hcl (CIPROFLOXACIN HCL) 500 Mg Tablet, 1 TAB PO BID for ATB 11/05/18 Furosemide (FUROSEMIDE) 20 Mg Tablet, 1-2 TAB PO DAILY for SWELLING, #90 TAB 1 Refill 04/22/17 Vit A/Vit C/Vit E/Zinc/Copper (PRESERVISION AREDS TABLET) 1 Each Tablet, 1 EACH PO BID, TAB 04/18/17 Niacin (Inositol Niacinate) (NIACIN 500 MG CAPSULE) 500 Mg Capsule, 500 MG PO DAILY, CAP 04/18/17 Docusate Sodium (DOCUSATE SODIUM) 100 Mg Capsule, 1 CAP PO DAILY PRN for CONSTIPATION, #30 CAP 04/18/17 Zolpidem Tartrate (AMBIEN) 5 Mg Tablet, 1 TAB PO QHS, #30 TAB 2 Refills 04/18/17 Cyanocobalamin (Vitamin B-12) (VITAMIN B-12) 1,000 Mcg Tablet, 1 TAB PO DAILY, # 30 TAB 2 Refills 04/18/17 Potassium Chloride (POTASSIUM CHLORIDE) 10 Meq Capsule.er, 10 MEQ PO DAILY for SUPPLEMENT, TAB.SR GIVE 1-2 TABLETS 04/18/17 Polyethylene Glycol 3350 (POLYETHYLENE GLYCOL 3350) 255 Gm Powder, 17 GM PO DAILY PRN for CONSTIPATION, #527 GM 04/18/17 Hydrocodone Bit/Acetaminophen (HYDROCODONE-APAP 10325 ) 1 Each Tablet, 1 TAB PO PRN Q6HRS PRN for PAIN, TAB 0 Refills 09/20/15 Phenyleph/Pramoxin/Glycr/W.pet (PREPARATION H CREAM) 26 Gm Cream..g., 1 ISH RC PRN BID PRN for PAIN 08/01/15 Fluticasone Propionate (Flonase Allergy Relief) 9.9 Ml [place].susp, 2 SPRAY NS DAILY 11/27/14 GABY CHAUDHRY MD Nov 08, 2018 13:57
[2018-11-08 15:00] VITALS: BP 117/60
--- NOTE | 2018-11-08 15:15 | NUR ---
SW following. Discussed with RN. SW met with pt to discuss PT recommendation of SNU. Pt does not want to go retirement as had some bad experiences in the past with facilities. Pt is wanting to get home to his . Pt owns his home where he lives with his , it is a one level ranch style house with some steps into the home, pt reported there are rails next to the stairs and a walker always by the door in the kitchen. Pt reported he always uses his walker and has someone to drive he and his places, someone collects their mail for them. Pt reported they have friends that stop by to help out and check on them. For meals pt and his use microwave meals. Pt has a rail in the shower and reported he calls a friend to tell them he is taking a shower and to come by or call someone if pt does not call them back in 35 minutes. Pt has [facility] and would like to continue with them. Discharge with home health PT/OT/RN/LAURO and Bath aidkarey. SARAH and Dr. Batista notified. SW will continue to follow.
[2018-11-08 19:00] VITALS: BP 121/52
--- NOTE | 2018-11-08 20:52 | PDOC ---
PROGRESS NOTES Chief Complaint Chief Complaint Gross hematuria History of bladder cancer History of essential hypertension Acute blood loss anemia secondary to hematuria Acute on chronic renal failure, patient etiology is most likely post renal vs vasomotor Plan: follow valuation consultant recommendations. will observe overnight. pain management stable h and h home medications. further recommendations based on clinical course DVT prophylaxis: scd and teds. History of Present Illness History of Present Illness Stable no complaints during my visit. Patient very debilitated and may need placement. Vitals Vitals Vital Signs Date Time Temp Pulse Resp B/P (MAP) Pulse Ox O2 Delivery O2 Flow Rate FiO2 11/08/18 15:00 98.5 73 20 117/60 (79) 100 Room Air 98.5 Physical Exam Physical Exam GENERAL: NAD, Alert HEENT: PERRL, OC/OP NECK: Supple, no JVD, no LN LUNGS: Clear HEART: S1S2, no gallop, no murmur ABD: Soft, NT, no organomegaly, no rebound EXT: No edema, no cyanosis PRODUCT MANAGEMENT SPECIALIST: Alert, oriented x 3, no focal neurologic deficit SKIN: No rash IV: ok Lungs: Clear, Other Assessment and Plan Assessmemt and Plan Problems Medical Problems: (1) Hematuria Status: Acute Comment Review of Relevant I have reviewed the following items ayo (where applicable) has been applied. Labs Laboratory Tests Test 11/07/18 05:20 Hemoglobin 7.8 g/dL (13.0-17.5) Microbiology 11/05/18 Urine Culture - Final, Complete 11/05/18 Urine Culture Result 1 (ISABELLE) - Final, Complete Medications Current Medications Sodium Chloride 500 ml @ 500 mls/hr 1X ONCE IV Last administered on 11/05/18at 02:56; Start 11/05/18 at 00:45; Stop 11/05/18 at 01:44; Status DC Sodium Chloride 1,000 ml @ 75 mls/hr [id number] IV Last administered on 11/05/18at 01:45; Start 11/05/18 at 01:45; Stop 11/06/18 at 01:44; Status DC Lidocaine HCl (Glydo (Lidocaine) Jelly) [address]-MED ONCE .ROUTE ; Start at 01:27; Stop 11/05/18 at 01:28; Status DC Ciprofloxacin/ Dextrose 200 ml @ 200 mls/hr 1X ONCE IV Last administered on 04:43; Start 11/05/18 at 04:30; Stop 11/05/18 at 05:29; Status DC Sodium Chloride 1,000 ml @ 100 mls/hr Q10H IV Last administered on 11/08/18 13:34; Start 11/05/18 at 09:00 Ondansetron HCl (Zofran) 4 mg PRN Q4HRS PRN IV NAUSEA/VOMITING; Start 11/05/18 at 08:45 Zolpidem Tartrate (Ambien) 5 mg PRN QHS PRN PO INSOMNIA; Start 11/05/18 at 08:45 Acetaminophen (Tylenol) 650 mg PRN Q4HRS PRN PO TEMP OVER 100.4F OR MILD PAIN; Start 11/05/18 at 08:45 Lorazepam (Ativan) 0.5 mg PRN Q4HRS PRN PO ANXIETY / AGITATION; Start 11/05/18 at 08:45 Hydromorphone HCl (Dilaudid) 1 mg PRN Q2HRS PRN IV SEVERE PAIN; Start 11/05/18 at 08:45 Belladonna Alkaloids/Opium (B & O) 1 supp PRN Q12HR PRN RI BLADDER SPASM; Start 11/05/18 at 08:45 Ciprofloxacin/ Dextrose 200 ml @ 200 mls/hr Q12HR IV Last administered on 11/08 08:31; Start 11/05/18 at 21:00; Stop 11/08/18 at 20:45; Status DC Cyanocobalamin (Vitamin B-12) 1,000 mcg DAILY PO Last administered on 08:30; Start 11/05/18 at 09:30 Docusate Sodium (Colace) 100 mg PRN DAILY PRN PO CONSTIPATION 1ST CHOICE Last administered on 11/07/18 10:36; Start 11/05/18 at 08:45 Furosemide (Lasix) 20 mg DAILY PO Last administered on 11/08/18 08:33; Start 11/05/18 at 09:30 Acetaminophen/ Hydrocodone Bitart (Lortab 10/325) 1 tab PRN Q6HRS PRN PO MODERATE PAIN Last administered on 11/07/18 10:37; Start 11/05/18 at 08:45 Potassium Chloride (Klor-Con) 10 meq DAILY PO Last administered on 11/08/18 08 :30; Start 11/05/18 at 09:30 Trazodone HCl (Desyrel) 75 mg HS PO Last administered on 11/07/18 20:30; Start 11/05/18 at 21:00 Zolpidem Tartrate (Ambien) 5 mg QHS PO Last administered on 11/07/18 20:30; Start 11/05/18 at 21:00 Fluticasone Propionate (Flonase) 2 spray DAILY NS Last administered on 08:30; Start 11/05/18 at 10:00 Niacin (Slo-Niacin) 500 mg QHS PO Last administered on 11/07/18 20:30; Start 11/05/18 at 21:00 Phenyleph/Shark Oil/Min Oil/Petrol (Preparation H) 1 ibis PRN BID PRN RC RECTAL PAIN; Start 11/05/18 at 09:00 Polyethylene Glycol (miraLAX PACKET) 17 gm PRN DAILY PRN PO CONSTIPATION 2ND CHOICE Last administered on 11/07/18 10:38; Start 11/05/18 at 09:00 Multivitamins/ Minerals (I-Nava) 1 tab BID PO Last administered on 11/08/18 08 :30; Start 11/05/18 at 09:30 Vancomycin HCl (Vancomycin Oral Solution) 125 mg [id number] PO Last administered on 11/08/18 14:59; Start 11/05/18 at 09:30; Stop 11/08/18 at 16:31; Status DC Ciprofloxacin (Cipro) 500 mg BID PO ; Start 11/08/18 at 21:00 Lactobacillus Rhamnosus (Culturelle) 1 cap BID PO ; Start 11/08/18 at 21:00 Active Scripts Active Reported Ranitidine Hcl 150 Mg Tablet 150 Mg PO BID Trazodone Hcl 50 Mg Tablet 75 Mg PO HS Ciprofloxacin Hcl 500 Mg Tablet 1 Tab PO BID Furosemide 20 Mg Tablet 1-2 Tab PO DAILY Preservision Areds Tablet (Vit A/Vit C/Vit E/Zinc/Copper) 1 Each Tablet 1 Each PO BID Niacin 500 Mg Capsule (Niacin (Inositol Niacinate)) 500 Mg Capsule 500 Mg PO DAILY Docusate Sodium 100 Mg Capsule 1 Cap PO DAILY PRN Ambien (Zolpidem Tartrate) 5 Mg Tablet 1 Tab PO QHS Vitamin B-12 (Cyanocobalamin (Vitamin B-12)) 1,000 Mcg Tablet 1 Tab PO DAILY Potassium Chloride 10 Meq Capsule.er 10 Meq PO DAILY GIVE 1-2 TABLETS Polyethylene Glycol 3350 255 Gm Powder 17 Gm PO DAILY PRN Hydrocodone-Apap 10-325 (Hydrocodone Bit/Acetaminophen) 1 Each Tablet 1 Tab PO PRN Q6HRS PRN Preparation H Cream (Phenyleph/Pramoxin/Glycr/W.pet) 26 Gm Cream..g. 1 Ibis RC PRN BID PRN Flonase Allergy Relief (Fluticasone Propionate) 9.9 Ml [place].susp 2 [place] NS DAILY Vitals/I & O Vital Sign - Last 24 Hours 11/07/18 11/08/18 11/08/18 11/08/18 23:00 03:00 07:00 08:00 Temp 99.0 98.8 98.8 99.0 98.8 98.8 Pulse 101 69 69 Resp 19 18 18 B/P (MAP) 117/41 (66) 104/46 (65) 104/47 (66) Pulse Ox 97 95 97 O2 Delivery Room Air Room Air Room Air Room Air 11/08/18 11/08/18 10:51 15:00 Temp 97.0 98.5 97.0 98.5 Pulse 73 73 Resp 20 20 B/P (MAP) 103/57 (72) 117/60 (79) Pulse Ox 99 100 O2 Delivery Room Air Room Air Intake and Output 11/07/18 11/07/18 11/08/18 15:00 23:00 07:00 Intake Total 900 ml 300 ml Output Total 2750 ml 950 ml Balance -1850 ml 300 ml -950 ml GABY CHAUDHRY MD Nov 08, 2018 20:52
[2018-11-08] MEDS: CIPROFLOXACIN HCL 250 MG TABLET. PO SCH (21:12)
[2018-11-08] MEDS: LACTOBACILLUS RHAMNOSUS GG 1 CAPSULE. PO SCH (21:12)
[2018-11-08] MEDS: ZOLPIDEM 5 MG TABLET. PO SCH (21:12)
[2018-11-08] MEDS: NIACIN ER 500 MG TABLET.ER PO SCH (21:12)
[2018-11-08] MEDS: traZODone 50 MG TABLET. PO SCH (21:12)
[2018-11-08 23:00] VITALS: BP 128/52
[2018-11-09 03:00] VITALS: BP 116/48
[2018-11-09] MEDS: IV NORMAL SALINE 1000ML BAG 1,000 ML IV SCH ×2 (03:16→13:00)
[2018-11-09 07:00] VITALS: BP 142/68
[2018-11-09] MEDS: FLUTICASONE 50MCG/NASAL SPRAY 16GM BOTTLE. NS SCH (08:38)
[2018-11-09] MEDS: MULTIVITAMIN I-VITE TABLET. PO SCH (08:38)
[2018-11-09] MEDS: CIPROFLOXACIN HCL 250 MG TABLET. PO SCH (08:38)
[2018-11-09] MEDS: FUROSEMIDE 20 MG TABLET PO SCH (08:38)
[2018-11-09] MEDS: LACTOBACILLUS RHAMNOSUS GG 1 CAPSULE. PO SCH (08:38)
[2018-11-09] MEDS: CYANOCOBALAMIN (VITAMIN B-12) 1,000 MCG TABLET. PO SCH (08:38)
[2018-11-09] MEDS: POTASSIUM CHLORIDE 10 MEQ TABLET.ER. PO SCH (08:38)
--- NOTE | 2018-11-09 09:24 | PDOC ---
SUBJECTIVE Subjective Pt has been having diarrhea, otherwise doing ok. OBJECTIVE Objective Physical Exam: General appearance: Alert and Oriented Head: Normocephalic, without obvious abnormality Eyes: conjunctivae/corneas clear. PERRL, EOM's intact. Fundi benign Lungs: Regular respirations, non labored breathing Abdomen: soft, non-tender. No masses, no organomegaly Pelvic:+ [address] draining redish-pink- tinged urine with occ clots. CBI port capped. Device in good working order Vital Signs Vital Signs Date Time Temp Pulse Resp B/P (MAP) Pulse Ox O2 Delivery O2 Flow Rate FiO2 11/09/18 07:00 97.7 76 18 142/68 (92) 95 Room Air 97.7 11/09/18 03:00 98.7 73 20 116/48 (70) 92 Room Air 98.7 11/08/18 23:00 97.6 73 20 128/52 (77) 97 Room Air 97.6 11/08/18 19:00 98.2 72 20 121/52 (75) 100 Room Air 98.2 11/08/18 15:00 98.5 73 20 117/60 (79) 100 Room Air 98.5 11/08/18 10:51 97.0 73 20 103/57 (72) 99 Room Air 97.0 I & O Intake and Output 11/09/18 07:00 Intake Total 3000 ml Output Total 2700 ml Balance 300 ml Intake Oral 2000 ml IV Total 1000 ml Output Urine Total 2700 ml # Bowel Movements 4 PHYSICAL EXAM Physical Exam Physical Exam: General appearance: Alert and Oriented Head: Normocephalic, without obvious abnormality Eyes: conjunctivae/corneas clear. PERRL, EOM's intact. Fundi benign Lungs: Regular respirations, non labored breathing Abdomen: soft, non-tender. No masses, no organomegaly Pelvic:+ [address] draining redish-pink- tinged urine with occ clots. CBI port capped. Device in good working order ASSESSMENT/PLAN Assessment/Plan Pt still having intermittent hematuria, although much improved since first admitted. This has apparently been a problem for a while. In light of these findings, plus patient request to leave Pack in place, I recommend he discharge with Pack in place, please make sure CBI port is securely capped upon discharge. Follow up with [facility] within the next two weeks for further care. Discussed above with attending RN Could leave from a Urology perspective whenever medical team is ready, but will follow peripherally while in house CHUY MICHAELS APRN Nov 09, 2018 09:24
[2018-11-09 11:00] VITALS: BP 141/56
--- NOTE | 2018-11-09 13:52 | NUR ---
LAURO following. Discussed with RN. LAURO faxed paperwork to [facility] ([phone], f: [phone]). LAURO phoned [facility] to discuss pt and request [facility] meet with pt and pt's to discuss next steps. Dr. Batista to order home health PT/OT/RN/LAURO/Bath Aide. LAURO awaiting discharge paperwork to fax. LAURO will continue to follow.
[2018-11-09 14:30] VITALS: BP 138/67
--- NOTE | 2018-11-09 14:33 | SNU/HH DC ---
DISCHARGE WITH HOME HEALTH DISCHARGE INFORMATION: Discharge Date: Nov 08, 2018 Final Diagnosis: Problems Medical Problems: (1) Hematuria Status: Acute Condition on Discharge: Stable CODE STATUS: Code Status: Full HOME HEALTH: Face to Face: I certify this patient is under my care and that I, or a nurse practitioner or physician's carpenter assistant working with me, had a face to face encounter that meets the physician face to face encounter requirements with this patient on []. Physical Therapy For: Evalulation/Treatment Occupational Therapy For: Evaluation/Treatment Home Health Aide For: Other (bath aide) ENVIRONMENTAL ENGINEERING MANAGER For: Other POST DISCHARGE ORDERS: Activity Instructions for Disc: Activity as tolerated Weight Bearing Status after Di: As tolerated Bathing Instructions: No Tub Bath until see DIET AFTER DISCHARGE: Regular Wound/Incision Care: No wound care needed CHECKS AFTER DISCHARGE: Checks after discharge: Check your Temp as needed TREATMENT/EQUIPMENT ORDERS: Adaptive Equipment Issued: Front wheeled walker CERTIFICATION STATEMENT: Certification Statement: Certification Statement: Based on the above finding, I certify that this patient is confined to the home and needs intermittent care home care, physical therapy and/or speech therapy, or continues to need occupational therapy.~ This patient is under my care, and I have initiated the establishment of the plan of care.~ This patient will be followed by myself or a community physician who will periodically review the plan of care. Home Meds Reported Medications Ranitidine Hcl (RANITIDINE HCL) 150 Mg Tablet, 150 MG PO BID for reflux 11/05/18 Trazodone Hcl (TRAZODONE HCL) 50 Mg Tablet, 75 MG PO HS for INSOMNIA 11/05/18 Ciprofloxacin Hcl (CIPROFLOXACIN HCL) 500 Mg Tablet, 1 TAB PO BID for ATB 11/05/18 Furosemide (FUROSEMIDE) 20 Mg Tablet, 1-2 TAB PO DAILY for SWELLING, #90 TAB 1 Refill 04/22/17 Vit A/Vit C/Vit E/Zinc/Copper (PRESERVISION AREDS TABLET) 1 Each Tablet, 1 EACH PO BID, TAB 04/18/17 Niacin (Inositol Niacinate) (NIACIN 500 MG CAPSULE) 500 Mg Capsule, 500 MG PO DAILY, CAP 04/18/17 Docusate Sodium (DOCUSATE SODIUM) 100 Mg Capsule, 1 CAP PO DAILY PRN for CONSTIPATION, #30 CAP 04/18/17 Zolpidem Tartrate (AMBIEN) 5 Mg Tablet, 1 TAB PO QHS, #30 TAB 2 Refills 04/18/17 Cyanocobalamin (Vitamin B-12) (VITAMIN B-12) 1,000 Mcg Tablet, 1 TAB PO DAILY, # 30 TAB 2 Refills 04/18/17 Potassium Chloride (POTASSIUM CHLORIDE) 10 Meq Capsule.er, 10 MEQ PO DAILY for SUPPLEMENT, TAB.SR GIVE 1-2 TABLETS 04/18/17 Polyethylene Glycol 3350 (POLYETHYLENE GLYCOL 3350) 255 Gm Powder, 17 GM PO DAILY PRN for CONSTIPATION, #527 GM 04/18/17 Hydrocodone Bit/Acetaminophen (HYDROCODONE-APAP 10-325 ) 1 Each Tablet, 1 TAB PO PRN Q6HRS PRN for PAIN, TAB 0 Refills 09/20/15 Phenyleph/Pramoxin/Glycr/W.pet (PREPARATION H CREAM) 26 Gm Cream..g., 1 ISH RC PRN BID PRN for PAIN 08/01/15 Fluticasone Propionate (Flonase Allergy Relief) 9.9 Ml [place].susp, 2 SPRAY NS DAILY 11/27/14 GABY CHAUDHRY MD Nov 09, 2018 14:33
--- NOTE | 2018-11-09 21:51 | PDOC3 ---
Discharge Summary Visit Information Date of Admission: Nov 05, 2018 Date of Discharge: Nov 09, 2018 Admitting Diagnosis: Gross hematuria Final Diagnosis Problems Medical Problems: (1) Hematuria Status: Acute Gross hematuria imrpoved History of bladder cancer History of essential hypertension Acute blood loss anemia secondary to hematuria status post transfusion of 1 unti of PBCs Acute on chronic renal failure, patient etiology is most likely post renal vs vasomotor improved, good urinary output Brief Hospital Course Allergies Allergies Coded Allergies Type Severity Reaction Last Updated Verified Penicillins Allergy Intermediate 06/13/15 Yes adhesive tape Adverse Reaction Intermediate tape- pulls skin off 06/13/15 Yes Vital Signs Vital Signs Date Time Temp Pulse Resp B/P (MAP) Pulse Ox O2 Delivery O2 Flow Rate FiO2 11/09/18 14:30 97.8 74 18 138/67 (90) 98 Room Air 97.8 Brief Hospital Course Patient is an 83 year old male with past medical history of bladder cancer who went for a urological follow up and he relates he had his catheter exchanged but "they acted like they did not know what they were doing" The patient refers some disocmfort during the catheter exchange but did not notice blood in his urine. Later in the day the patient experienced insidious onset of lower abdominal discomfort and subsequent hematuria reason why he consulted to the ER. We were asked to admit for urological evaluation, at the time of my evaluation the patient is experiencing discomfort since his CBI stopped running and he had to be flushed, several clots came out of his 3 way catheter and CBI was restarted. No fever or chills, no chest pain palpitations shortness of breath or other symptoms were reported by the patient He was admitted to the medical floor where he was started on CBI and it took more or less 3 days for his urine to clear. he was seen in consultation by Urology, a voiding trial was requested by them on the day of discharge but after review of his records, applications consultant recommended leaving pack in place and have him followup with his urologist at . Patient was weak and it was recommended for hin to transfer to a SNF He declined sine he expressed dissatisfaction with previous SNU experiences. Arrangements were made by for him to have home health services including bath aide and a SW visit as well. Greater than 35 minutes spent in the discharge of the patient in cousneling coordination of care and arrangements for a safe discharge. Physical exam: Lungs clear to auscultation good inspiratory effort CVS s1s2 rr systolic murmur / intensitiy no radiation Discharge Information Condition at Discharge: Improved Follow Up: Weeks Disposition/Orders: D/C to Home w/ HH Scheduled Ciprofloxacin Hcl (Ciprofloxacin Hcl) 500 Mg Tablet, 1 TAB PO BID for ATB, ( Reported) Entered as Reported by: EMANUEL CORONEL on 11/05/18 0457 Last Taken: Unknown Dose on 11/04/18 Last Action: HELD on 11/05/18844 by GABY CHAUDHRY MD Cyanocobalamin (Vitamin B-12) (Vitamin B-12) 1,000 Mcg Tablet, 1 TAB PO DAILY, # 30 Ref 2 (Reported) Entered as Reported by: RL CAMERON on 04/18/17955 Last Action: Continued on 11/05/18845 by GABY CHAUDHRY MD Fluticasone Propionate (Flonase Allergy Relief) 9.9 Ml [place].susp, 2 SPRAY NS DAILY, (Reported) Entered as Reported by: TAB LANE on 11/27/14 1413 Last Action: Converted on 11/05/18845 by GABY CHAUDHRY MD Furosemide (Furosemide) 20 Mg Tablet, 1-2 TAB PO DAILY for SWELLING, #90 Ref 1 ( Reported) Entered as Reported by: KALEB COLLINS on 04/22/17 1351 Last Action: Continued on 11/05/18845 by GABY CHAUDHRY MD Niacin (Inositol Niacinate) (Niacin 500 Mg Capsule) 500 Mg Capsule, 500 MG PO DAILY, (Reported) Entered as Reported by: RL CAMERON on 04/18/17955 Last Action: Converted on 11/05/18845 by GABY CHAUDHRY MD Potassium Chloride (Potassium Chloride) 10 Meq Capsule.er, 10 MEQ PO DAILY for SUPPLEMENT, (Reported) GIVE 1-2 TABLETS Entered as Reported by: RL CAMERON on 04/18/17955 Last Action: Continued on 11/05/18845 by GABY CHAUDHRY MD Ranitidine Hcl (Ranitidine Hcl) 150 Mg Tablet, 150 MG PO BID for reflux, ( Reported) Entered as Reported by: JIMENA MORRIS on 11/05/182011 Last Action: New Order on 11/05/182011 by JIMENA MORRIS Trazodone Hcl (Trazodone Hcl) 50 Mg Tablet, 75 MG PO HS for INSOMNIA, (Reported) Entered as Reported by: EMANUEL CORONEL on 11/05/18456 Last Taken: UNKNOWN on Unknown Date & Time Last Action: Continued on 845 by GABY CHAUDHRY MD Vit A/Vit C/Vit E/Zinc/Copper (Preservision Areds Tablet) 1 Each Tablet, 1 EACH PO BID, (Reported) Entered as Reported by: RL CAMERON on 04/18/17955 Last Action: Converted on 11/05/18845 by GABY CHAUDHRY MD Zolpidem Tartrate (Ambien) 5 Mg Tablet, 1 TAB PO QHS, #30 Ref 2 (Reported) Entered as Reported by: RL CAMERON on 04/18/17955 Last Action: Continued on 11/05/18845 by GABY CHAUDHRY MD Scheduled PRN Docusate Sodium (Docusate Sodium) 100 Mg Capsule, 1 CAP PO DAILY PRN for CONSTIPATION, #30 (Reported) Entered as Reported by: RL CAMERON on 04/18/17955 Last Action: Continued on 11/05/18845 by GABY CHAUDHRY MD Hydrocodone Bit/Acetaminophen (Hydrocodone-Apap 10-325 ) 1 Each Tablet, 1 TAB PO PRN Q6HRS PRN for PAIN, Ref 0 (Reported) Entered as Reported by: Suzy Ceballos on 09/20/15 1525 Last Action: Continued on 11/05/18845 by GABY CHAUDHRY MD Phenyleph/Pramoxin/Glycr/W.pet (Preparation H Cream) 26 Gm Cream..g., 1 ISH RC PRN BID PRN for PAIN, (Reported) Entered as Reported by: CHEMA LOPEZ [facility] on 08/01/15 1853 Last Action: Converted on 11/05/18845 by GABY CHAUDHRY MD Polyethylene Glycol 3350 (Polyethylene Glycol 3350) 255 Gm Powder, 17 GM PO DAILY PRN for CONSTIPATION, #527 (Reported) Entered as Reported by: RL CAMERON on 04/18/17955 Last Action: Converted on 11/05/18845 by MD RICHA ALFRED HECTOR M MD Nov 09, 2018 21:51
== END 2018-11-09 16:44 | disposition home health service (06) | DRG 683 ==
LOC: ER 23:10 → 5 SOUTH 11-05 01:20
PROVIDERS: ADMIT Internal Medicine; ATTEND Internal Medicine
PROC: 30233N1 Transfusion of Nonautologous Red Blood Cells into Peripheral Vein, Percutaneous Approach (ICD-10-PCS; principal; 2018-11-05)
DX: N17.0 Acute kidney failure with tubular necrosis (principal); D62 Acute posthemorrhagic anemia; R31.0 Gross hematuria; I12.9 Hypertensive chronic kidney disease with stage 1 through stage 4 chronic kidney disease, or unspecified chronic kidney disease; N18.9 Chronic kidney disease, unspecified; C67.9 Malignant neoplasm of bladder, unspecified; H91.90 Unspecified hearing loss, unspecified ear; K21.9 Gastro-esophageal reflux disease without esophagitis; K59.00 Constipation, unspecified; M06.9 Rheumatoid arthritis, unspecified; N31.9 Neuromuscular dysfunction of bladder, unspecified; N36.8 Other specified disorders of urethra; Z87.440 Personal history of urinary (tract) infections; Z82.49 Family history of ischemic heart disease and other diseases of the circulatory system; Z96.659 Presence of unspecified artificial knee joint; Z85.51 Personal history of malignant neoplasm of bladder; M19.90 Unspecified osteoarthritis, unspecified site; M54.5 Low back pain; Z88.0 Allergy status to penicillin; Z91.048 Other nonmedicinal substance allergy status; Z90.49 Acquired absence of other specified parts of digestive tract
CPT/HCPCS: 36415; 51702; 74176; 80048; 80053; 81001; 85018; 85025; 85610; 86850; 86900; 86901; 86920; 87086; 87493; 96360; J0744; J7030; J7040; P9016; 97110; 97116; 97530; 99285-25

== ENCOUNTER → 2018-12-24 | Outpatient (CLI) | payer MEDICARE ==
[~2018-12-24] MED LIST changes: +RANI150T2 PO
--- NOTE | 2018-12-24 13:42 | CARD ---
MR#: [id number] Date of Study: 12/24/2018 Ordering Physician: YUMI HARO, Referring Physician: YUMI HARO Tech: Reny Rawls RDCS APPROVED REPORT EXAM: Two-dimensional and M-mode echocardiogram with Doppler and color Doppler. Other Information Quality : Technically LimitedHR: 72bpm Rhythm : NSRTechnically limited study due to body habitus. INDICATION Congestive Heart Failure 2D DIMENSIONS RVDd2.9 (2.9-3.5cm)Left Atrium(2D)4.0 (1.6-4.0cm) IVSd1.1 (0.7-1.1cm)Aortic Root(2D)3.7 (2.0-3.7cm) LVDd4.2 (3.9-5.9cm)LVOT Diameter2.0 (1.8-2.4cm) PWd0.8 (0.7-1.1cm)LVDs2.9 (2.5-4.0cm) FS (%) 30.8 %SV46.3 ml LVEF(%)58.8 (>50%) M-Mode DIMENSIONS Left Atrium(MM)4.48 (2.5-4.0cm)Aortic Root3.44 (2.2-3.7cm) Aortic Valve AoV Peak Faisal.176.7cm/sAoV VTI35.4cm AO Peak GR.12.5mmHgLVOT Peak Faisal.101.1cm/s AO Mean GR.6mmHgAVA (VMAX)1.83cm2 ANAIS (VTI)1.75cq3DX P 1/2 Zpwv298ne Mitral Valve MV E Srxouybt077.2cm/sMV E Peak Gr.8mmHg MV DECEL [id number] A Bqbiuwmm149.1cm/s MV E Mean Gr.2mmHgE/A Ratio0.7 MV A [id number] Pulmonary Valve PV Peak Unfxepyb19.1cm/s LEFT VENTRICLE The left ventricle is normal size. There is normal left ventricular wall thickness. The left ventricu lar systolic function is normal and the ejection fraction is within normal range. The Ejection Fracti on is 55-60%. There is normal LV segmental wall motion. Transmitral Doppler flow pattern is Grade I-a bnormal relaxation pattern. RIGHT VENTRICLE The right ventricle is normal size. There is normal right ventricular wall thickness. The right ventr icular systolic function is normal. ATRIA The left atrium is mildly dilated. The right atrium size is normal. Lipomatous hypertrophy of the int eratrial septum is noted. AORTIC VALVE The aortic valve is moderately calcified. The aortic valve is trileaflet. Doppler and Color Flow reve aled mild aortic regurgitation. There is no significant aortic valvular stenosis. MITRAL VALVE The mitral valve is calcified but opens well. There is no evidence of mitral valve prolapse. There is no mitral valve stenosis. Doppler and Color-flow revealed trace mitral regurgitation. TRICUSPID VALVE The tricuspid valve is normal in structure and function. Doppler and Color Flow revealed trace tricus pid regurgitation. There is no tricuspid valve prolapse or vegetation. There is no tricuspid valve st enosis. PULMONIC VALVE Doppler and Color Flow revealed no pulmonic valvular regurgitation. There is no pulmonic valvular donovan nosis. GREAT VESSELS The aortic root is normal in size. The ascending aorta is normal in size. The IVC is dilated. PERICARDIAL EFFUSION There is no evidence of significant pericardial effusion. Critical Notification Critical Value: No <Conclusion> The left ventricular systolic function is normal and the ejection fraction is within normal range. Th e Ejection Fraction is 55-60%. There is normal LV segmental wall motion. Lipomatous hypertrophy of the interatrial septum is noted. Signed by : Jesse Rodriges, Electronically Approved : 12/24/2018 13:41:30
== END | disposition home or self-care (01) ==
LOC: ECHO 12:46
PROVIDERS: ATTEND Internal Medicine Cardiovascular Disease
DX: I08.0 Rheumatic disorders of both mitral and aortic valves (principal); I50.32 Chronic diastolic (congestive) heart failure
CPT/HCPCS: 93306

== ENCOUNTER 2019-05-19 18:46 | Emergency (ER) | payer MEDICARE ==
[~2019-05-19] VITALS: Ht 172.7 cm; Wt 68.9 kg
[~2019-05-19 18:46] MED LIST changes: +CYAN-25 PO; -CYAN10005 PO; +MONT10TA49 PO; -MONT10TA6 PO; -PANT40TA3 PO; +PANT40TA77 PO
[2019-05-19 20:44] LABS: BASO % 0 % (0-3); EOS # 0.3 x10^3/uL (0.0-0.7); EOS % 4 % (0-3); HEMATOCRIT 23.1 % (39.0-53.0); HEMOGLOBIN 7.8 g/dL (13.0-17.5); LYMPH # 0.9 x10^3/uL (1.0-4.8); LYMPH % 13 % (24-48); MEAN CORPUSCULAR HEMOGLOBIN 30 pg (25-35); MEAN CORPUSCULAR HGB CONC 34 g/dL (31-37); MEAN CORPUSCULAR VOLUME 90 fL (79-100); MONO # 0.7 x10^3/uL (0.0-1.1); MONO % 9 % (0-9); NEUT # 5.4 x10^3/uL (1.8-7.7); NEUT % 74 % (31-73); PLATELET COUNT 236 x10^3/uL (140-400); RED BLOOD COUNT 2.56 x10^6/uL (4.30-5.70); RED CELL DISTRIBUTION WIDTH 16.6 % (11.5-14.5); WHITE BLOOD COUNT 7.2 x10^3/uL (4.0-11.0)
[2019-05-19 20:53] LABS: CALCIUM 9.4 mg/dL (8.5-10.1); CREATININE 1.6 mg/dL (0.7-1.3); GFR 41.4; PROTHROMBIN TIME PATIENT 13.8 SEC (11.7-14.0)
[2019-05-19 20:59] LABS: ALBUMIN 3.7 g/dL (3.4-5.0); ALBUMIN/GLOBULIN RATIO 0.9 (1.0-1.7); MAGNESIUM 2.2 mg/dL (1.8-2.4); TOTAL BILIRUBIN 0.3 mg/dL (0.2-1.0); TOTAL PROTEIN 7.7 g/dL (6.4-8.2)
--- NOTE | 2019-05-19 21:32 | RAD ---
Examination: CT HEAD AND CERVICAL SPINE WO History: Fall, injury, pain Comparison/Correlation: 04/18/2017 CT head and cervical spine without contrast Findings: Axial images of the head and cervical spine were obtained without contrast. Sagittal and coronal reformatted images of the cervical spine were provided. Atrophy is present. No intracranial hemorrhage, midline shift, or mass effect. Globes and optic nerves are unremarkable. No depressed skull fracture. Right maxillary sinus is retention cysts are present. Postoperative cervical spine fusion is noted with plate and associated screws from C3 to C6. Intervertebral disc spacer material noted at these levels also. Disc osteophyte complexes are noted with effacement of the thecal sac at multiple levels. This space narrowing of the cervical spine is noted from C5 to C7. Bony encroachment on neural foramina bilaterally noted involving cervical spine. Soft tissues are unremarkable. No acute fracture or bony destruction. Surgical clips involving the right side of the neck noted. Left carotid bulb calcification is notable. Impression: No intracranial hemorrhage. No fracture or malalignment. PQRS Compliance Statement: One or more of the following individualized dose reduction techniques were utilized for this examination: 1. Automated exposure control 2. Adjustment of the mA and/or kV according to patient size 3. Use of iterative reconstruction technique Electronically signed by: Don Flores MD (05/19/2019 9:30 PM) [facility]
--- NOTE | 2019-05-19 22:35 | PHYS DOC ---
Past Medical History Past Medical History: Anemia, Arthritis, Cancer, GERD, Renal Disease, UTI Additional Past Medical Histor: BLADDER CANCER, BACK PAIN, DDD (SELMA OTOOLE APRN) Past Surgical History: Tonsillectomy Additional Past Surgical Histo: BACK SX, KNEE SX, FILTER IN R LEG, CARTOID SX (SELMA OTOOLE APRN) Alcohol Use: None Drug Use: None (SELMA OTOOLE APRN) Adult General Chief Complaint Chief Complaint: MECHANICAL FALL HPI HPI Patient is a 83 year old male who presents to the ER via POV after falling from standing at home earlier this evening around 1730. Pt states he was using his walker to sit down at his desk when his feet got tangled up and he fell. He reports L shoulder, L upper arm, L hip, and low back pain. HE also complains of skin tears to his left upper arm and left ear. Pt denies any LOC, nausea, vomiting, numbness, tingling, weakness, chest pain, dizziness, shortness of breath, or vision changes. He also reports neck pain at this time. Pt states his legs have been more swollen than usual so he has been taking a water pill that was prescribed by his PCP. He currently rates his pain a 10/10 on the pain scale. He denies any alleviating factors, the pain increases with palpation and movement. (SELMA OTOOLE APRN) Review of Systems Review of Systems Constitutional: Denies fever or chills [] Eyes: Denies change in visual acuity, redness, or eye pain [] HENT: Denies nasal congestion or sore throat [] Respiratory: Denies cough or shortness of breath [] Cardiovascular: No additional information not addressed in HPI [] GI: Denies abdominal pain, nausea, vomiting, or diarrhea [] : Denies dysuria or hematuria; reports increased urinary frequency [] Musculoskeletal: See HPI Integument: Denies rash, see HPI Neurologic: Denies headache, focal weakness or sensory changes [] Complete systems were reviewed and found to be within normal limits, except as documented in this note. (SELMA OTOOLE APRN) Current Medications Current Medications Current Medications Medications (Trade) Dose Ordered Sig/Carter Start Time Stop Time Status Last Admin Dose Admin Neomycin/ Polymyxin/ Bacitracin (Triple Antibiotic Ointment) 1 pkt 1X ONCE 05/19/19 22:45 05/19/19 22:48 DC 05/20/19 00:28 1 PKT (MICHELLE YUNG DO) Allergies Allergies Allergies Coded Allergies Type Severity Reaction Last Updated Verified Penicillins Allergy Intermediate 06/13/15 Yes adhesive tape Adverse Reaction Intermediate tape- pulls skin off 06/13/15 Yes (MICHELLE YUNG DO) Physical Exam Physical Exam Constitutional: Well developed, well nourished, no acute distress, non-toxic appearance. [] HENT: Normocephalic, atraumatic, bilateral external ears normal, oropharynx moist, no oral exudates, nose normal. [] Eyes: PERRLA, EOMI, conjunctiva normal, no discharge. [] Neck: Normal range of motion, supple, no stridor; midline bony TTP, pt placed in c-collar Cardiovascular:Heart rate regular rhythm Lungs & Thorax: Bilateral breath sounds clear to auscultation [] Abdomen: soft, no tenderness, no masses, no pulsatile masses. [] Skin: Warm, dry, no erythema, no rash; skin tear/ avulsion noted to left upper arm, small skin tear noted to left ear. [] Back: No CVA tenderness; lumbar spine TTP no stepoff or crepitus, no tenderness to palpation of T-spine Extremities: No cyanosis, no clubbing, 2+ edema of BLE; L shoulder TTP unable to test ROM due to pt pain intolerance, no crepitus; L upper arm TTP, no crepitus, no obvious deformity; L lateral hip TTP, no obvious deformity, old bruising noted, limited ROM due to patient pain intolerance Neurologic: Alert and oriented X 3, no focal deficits noted. [] Psychologic: Affect normal, judgement normal, mood normal. [] (SELMA OTOOLE APRN) Current Patient Data Vital Signs Vital Signs Date Time Temp Pulse Resp B/P (MAP) Pulse Ox O2 Delivery O2 Flow Rate FiO2 05/19/19 22:45 72 19 100 05/19/19 19:10 98.2 153/68 (96) Room Air 98.2 (MICHELLE YUNG DO) Lab Values Laboratory Tests Test 05/19/19 20:34 White Blood Count 7.2 x10^3/uL (4.0-11.0) Red Blood Count 2.56 x10^6/uL (4.30-5.70) L Hemoglobin 7.8 g/dL (13.0-17.5) L Hematocrit 23.1 % (39.0-53.0) L Mean Corpuscular Volume 90 fL (79-100) Mean Corpuscular Hemoglobin 30 pg (25-35) Mean Corpuscular Hemoglobin Concent 34 g/dL (31-37) Red Cell Distribution Width 16.6 % (11.5-14.5) H Platelet Count 236 x10^3/uL (140-400) Neutrophils (%) (Auto) 74 % (31-73) H Lymphocytes (%) (Auto) 13 % (24-48) L Monocytes (%) (Auto) 9 % (0-9) Eosinophils (%) (Auto) 4 % (0-3) H Basophils (%) (Auto) 0 % (0-3) Neutrophils # (Auto) 5.4 x10^3/uL (1.8-7.7) Lymphocytes # (Auto) 0.9 x10^3/uL (1.0-4.8) L Monocytes # (Auto) 0.7 x10^3/uL (0.0-1.1) Eosinophils # (Auto) 0.3 x10^3/uL (0.0-0.7) Basophils # (Auto) 0.0 x10^3/uL (0.0-0.2) Prothrombin Time 13.8 SEC (11.7-14.0) Prothrombin Time INR 1.1 (0.8-1.1) Activated Partial Thromboplast Time 32 SEC (24-38) Sodium Level 141 mmol/L (136-145) Potassium Level 4.0 mmol/L (3.5-5.1) Chloride Level 105 mmol/L (98-107) Carbon Dioxide Level 28 mmol/L (21-32) Anion Gap 8 (6-14) Blood Urea Nitrogen 29 mg/dL (8-26) H Creatinine 1.6 mg/dL (0.7-1.3) H Estimated GFR (Cockcroft-Gault) 41.4 BUN/Creatinine Ratio 18 (6-20) Glucose Level 101 mg/dL (70-99) H Calcium Level 9.4 mg/dL (8.5-10.1) Magnesium Level 2.2 mg/dL (1.8-2.4) Total Bilirubin 0.3 mg/dL (0.2-1.0) Aspartate Amino Transferase (AST) 20 U/L (15-37) Alanine Aminotransferase (ALT) 13 U/L (16-63) L Alkaline Phosphatase 76 U/L (46-116) AJ-Kvx-J-Type Natriuretic Peptide 258 pg/mL (0-449) Total Protein 7.7 g/dL (6.4-8.2) Albumin 3.7 g/dL (3.4-5.0) Albumin/Globulin Ratio 0.9 (1.0-1.7) L Laboratory Tests 05/19/19 20:34 Laboratory Tests 05/19/19 20:34 (MICHELLE YUNG DO) EKG EKG [] (SELMA OTOOLE APRN) Radiology/Procedures Radiology/Procedures PROCEDURE: CT HEAD AND CERVICAL SPINE WO Examination: CT HEAD AND CERVICAL SPINE WO History: Fall, injury, pain Comparison/Correlation: 04/18/2017 CT head and cervical spine without contrast Findings: Axial images of the head and cervical spine were obtained without contrast. Sagittal and coronal reformatted images of the cervical spine were provided. Atrophy is present. No intracranial hemorrhage, midline shift, or mass effect. Globes and optic nerves are unremarkable. No depressed skull fracture. Right maxillary sinus is retention cysts are present. Postoperative cervical spine fusion is noted with plate and associated screws from C3 to C6. Intervertebral disc spacer material noted at these levels also. Disc osteophyte complexes are noted with effacement of the thecal sac at multiple levels. This space narrowing of the cervical spine is noted from C5 to C7. Bony encroachment on neural foramina bilaterally noted involving cervical spine. Soft tissues are unremarkable. No acute fracture or bony destruction. Surgical clips involving the right side of the neck noted. Left carotid bulb calcification is notable. Impression: No intracranial hemorrhage. No fracture or malalignment. L shoulder, L humerus, lumbar spine, and left hip x-rays are negative for acute fracture or findings, read by Dr. Yung. [] (SELMA OTOOLE APRN) Course & Med Decision Making Course & Med Decision Making Pertinent Labs and Imaging studies reviewed. (See chart for details) dx: Fall, closed head injury without LOC, left shoulder pain, left arm skin tear, low back pain VSS. Pt offered admission to the hospital for observation, pt refuses to be admitted. PT historically has low HGB and HCt. CT head and neck negative for acute findings. X-rays of left shoulder, left humerus, left hip, and lumbar spine negative for acute fracture or findings. PT is able to ambulate with a walker in the department. I spoke with patient's who states she is comfortable caring for patient at home. Patient may take tylenol or ibuprofen as needed for pain. Follow up with PCP if sx persist, return to ER if sx worsen. Patient verbalized an understanding of home care, medications, follow-up, and return to ED instructions and was in agreement with the plan of care. [] (SELMA OTOOLE APRN) Dragon Disclaimer Dragon Disclaimer This electronic medical record was generated, in whole or in part, using a voice recognition dictation system. (SELMA OTOOLE APRN) Departure Departure Impression: Primary Impression: Closed head injury without loss of consciousness Additional Impressions: Left shoulder pain Skin tear of left upper arm without complication Low back pain Fall at home Disposition: 01 HOME, SELF-CARE Condition: STABLE Referrals: GEORGE TADEO (PCP) Patient Instructions: Back Pain, Adult, Sixv-za-Afds, Fall Prevention and Home Safety, Jjop-oy-Rhkm, Head Injury, Adult, Mdsb-ua-Rjba, Shoulder Pain, Gogx-ap-Ngcm, Skin Tear Care, [id number]-[id number]-Vpbq Additional Instructions: Take tylenol or ibuprofen as needed for pain. Always use your walker with ambulation. Follow up with your primary care doctor if symptoms persist, return to the ER if symptoms worsen. Attending Signature Attending Signature I have reviewed the PA/PLASTIC BATTERY ASSEMBLER's note and plan of care. I was available for co nsultation as needed during the patient's visit in the emergency department. I agree with the clinical impression, plan, and disposition. (MICHELLE YUNG DO) Problem Qualifiers Primary Impression: Closed head injury without loss of consciousness Encounter type: initial encounter Qualified Codes: S09.90XA - Unspecified injury of head, initial encounter Additional Impressions: Left shoulder pain Chronicity: acute Qualified Codes: M25.512 - Pain in left shoulder Skin tear of left upper arm without complication Encounter type: initial encounter Qualified Codes: S41.112A - Laceration without foreign body of left upper arm, initial encounter Low back pain Chronicity: acute Back pain laterality: midline Sciatica presence: without sciatica Qualified Codes: M54.5 - Low back pain Fall at home Encounter type: initial encounter Qualified Codes: W19.XXXA - Unspecified fall, initial encounter; Y92.009 - Unspecified place in unspecified non- institutional (private) residence as the place of occurrence of the external cause SELMA OTOOLE APRN May 19, 2019 22:35 MICHELLE YUNG DO May 20, 2019 07:36
[2019-05-19 22:45] VITALS: BP 171/73
[2019-05-19] MEDS ORDERED: NEOMY/BACITR/POLYMYXIN OINT PACKET. TP ONE (22:45)
--- NOTE | 2019-05-20 06:20 | EKG ---
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
--- NOTE | 2019-05-20 07:51 | RAD ---
EXAM: Knee Views Left Shoulder DATE: 05/19/2019 7:34 PM INDICATION: Left shoulder pain COMPARISON: No Prior FINDINGS: There is no evidence for acute fracture or dislocation. AC joint is congruent. AC joint DJD. High riding humeral head. Glenohumeral joint degenerative changes are seen. Atherosclerotic calcifications of the tortuous aorta are partially profiled. Decreased bone mineral density. IMPRESSION: 1. No acute fracture or dislocation. 2. Rotator cuff arthropathy. 3. AC joint degenerative change. 4. Diffusely decreased bone mineral density. Electronically signed by: Angus Jama MD (05/20/2019 7:49 AM) [facility]
--- NOTE | 2019-05-20 07:53 | RAD ---
EXAM: AP pelvis, AP and crosstable lateral views left hip DATE: 05/19/2019 12:00 AM INDICATION: Left hip, pelvic pain post fall COMPARISON: No Prior FINDINGS/ IMPRESSION: 1. Marked osteopenia and nonstandard projections limits evaluation for nondisplaced fracture. Within these constraints no obvious fracture is identified however MRI is recommended given degree of osteopenia. 2. Bilateral hip joint osteoarthritis 3. Atherosclerotic vascular calcifications are seen. 4. Lower lumbar spine fusion hardware and sacral plasty are seen. Electronically signed by: Angus aJma MD (05/20/2019 7:50 AM) [facility]
--- NOTE | 2019-05-20 07:56 | RAD ---
EXAM: AP and lateral views of the lumbar spine DATE: 05/19/2019 7:34 PM INDICATION: Left shoulder and low back pain post fall COMPARISON: No Prior FINDINGS: Exam is markedly limited given diffuse decrease bone mineral density. For the purposes of this report there are 5 nonrib-bearing lumbar-type vertebral bodies. In general vertebral body heights are preserved. Posterior spinal fusion L3-L5 with L4-5 interbody fusion. Moderate to severe multilevel disc height loss particularly at the upper and mid thoracic spine with moderate disc height loss at L3-4. Changes of prior sacral plasty are seen. Advanced facet degenerative changes are seen throughout the lumbar spine. Straightening of the normal lumbar lordosis. No spondylolisthesis. IVC filter is partially profiled. SI joint widening and irregularity is seen. IMPRESSION: 1. Within the constraints of marked osteopenia, no evidence for acute fracture. MRI and CT are more sensitive if there is persistent clinical concern for fracture. 2. Bilateral SI joint widening and irregularity is seen may be seen with infectious or inflammatory spondyloarthropathy or from degenerative change. Electronically signed by: Angus Jama MD (05/20/2019 7:53 AM) [facility]
--- NOTE | 2019-05-20 07:59 | RAD ---
EXAM: AP and lateral views left humerus DATE: 05/19/2019 8:00 PM INDICATION: Left shoulder and upper arm pain COMPARISON: No Prior FINDINGS/ IMPRESSION: 1. No evidence for humeral fracture or dislocation. 2. 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 Electronically signed by: Angus Jama MD (05/20/2019 7:56 AM) [facility]
== END 2019-05-20 00:25 | disposition home or self-care (01) ==
LOC: ER 18:46
DX: S41.112A Laceration without foreign body of left upper arm, initial encounter (principal); S01.312A Laceration without foreign body of left ear, initial encounter; S09.8XXA Other specified injuries of head, initial encounter; M54.5 Low back pain; M25.512 Pain in left shoulder; M25.552 Pain in left hip; M19.90 Unspecified osteoarthritis, unspecified site; K21.9 Gastro-esophageal reflux disease without esophagitis; Z90.89 Acquired absence of other organs; Z88.0 Allergy status to penicillin; Z88.8 Allergy status to other drugs, medicaments and biological substances; W18.39XA Other fall on same level, initial encounter; Y93.89 Activity, other specified; Y92.009 Unspecified place in unspecified non-institutional (private) residence as the place of occurrence of the external cause; Y99.8 Other external cause status
CPT/HCPCS: 36415; 70450; 72100; 72125; 73030; 73060; 73502; 80053; 83735; 83880; 85025; 85610; 85730; 93005; 99285-25

== ENCOUNTER → 2019-12-19 | Outpatient (CLI) | payer MEDICARE ==
[2019-12-09 11:00] VITALS: BP 85/46
[~2019-12-19] MED LIST changes: +CHOL40003 PO; +CYAN-9 PO
--- NOTE | 2019-12-19 11:32 | RAD ---
Examination: CT HEAD WO CONTRAST History: 12/09/2019 Comparison/Correlation: 12/09/2019 CT head without contrast Findings: Axial images of the head were obtained without contrast. Decreased hematoma involving left parietal occipital region is noted. Surrounding vasogenic edema is still seen. No intraventricular component definitely seen. Currently the hematoma measures 3.5 cm anteroposterior by 3 cm transverse by 3.5 cm longitudinal. This represents a decrease of approximately 0.8 cm anteroposterior by 0.3 cm transverse compared to the prior exam. No new foci of hemorrhage identified. No new mass effect or midline shift. Effacement of the occipital horn of the left lateral ventricle is again seen. Orbits are unremarkable. Bony structures are unremarkable. Impression: Decreased left parieto-occipital hematoma size. No intraventricular hemorrhage is seen. No new hemorrhage. PQRS Compliance Statement: One or more of the following individualized dose reduction techniques were utilized for this examination: 1. Automated exposure control 2. Adjustment of the mA and/or kV according to patient size 3. Use of iterative reconstruction technique Electronically signed by: Don Flores MD (12/19/2019 11:30 AM) [id number]
== END | disposition home or self-care (01) ==
LOC: CT 14:00
PROVIDERS: ATTEND Neurological Surgery
DX: S06.360A Traumatic hemorrhage of cerebrum, unspecified, without loss of consciousness, initial encounter (principal); X58.XXXA Exposure to other specified factors, initial encounter; Y93.89 Activity, other specified; Y92.89 Other specified places as the place of occurrence of the external cause; Y99.8 Other external cause status
CPT/HCPCS: 70450

== ENCOUNTER → 2020-01-09 | Outpatient (CLI) | payer MEDICARE ==
[2019-12-09 11:00] VITALS: BP 85/46
--- NOTE | 2020-01-09 13:47 | RAD ---
CT head without contrast dated 01/09/2020. Comparison made to 12/19/2019. CLINICAL INDICATION: Follow-up hemorrhage. TECHNIQUE: Contiguous axial imaging of the head was performed from skull base to vertex. One or more of the following individualized dose reduction techniques were utilized for this examination: 1. Automated exposure control 2. Adjustment of the mA and/or kV according to patient size 3. Use of iterative reconstruction technique. FINDINGS: Previously described high density collection at the left parietal-occipital region has decreased in size from prior exam and is less prominent. The collection measures up to 3.5 cm maximum versus 4.3 cm as measured in the same plane on the prior study. There is persistent mass effect upon the occipital horn of the left lateral ventricle with low-density thickening of the corpus callosum, unchanged. No midline shift. Mild patchy low-density throughout the deep/subcortical periventricular white matter with mild prominence of the ventricles and sulci for patient's age. No new hemorrhage or extra-axial collection. Posterior fossa and brainstem unremarkable. Mild mucosal thickening of the bilateral ethmoid air cells. The visualized paranasal sinuses and mastoid air cells are otherwise clear. No apparent calvarial abnormality. IMPRESSION: 1. Interval decrease in size of left parietal occipital parenchymal hematoma. Mild improvement in mass effect upon the occipital horn of the left lateral ventricle. 2. No new hemorrhage or extra-axial collection. 3. Mild chronic small vessel ischemic changes and atrophy. Electronically signed by: Taj Higgins MD (01/09/2020 1:43 PM) [facility]
== END | disposition home or self-care (01) ==
LOC: CT 12:39
PROVIDERS: ATTEND Neurological Surgery
DX: S06.360A Traumatic hemorrhage of cerebrum, unspecified, without loss of consciousness, initial encounter (principal); F17.200 Nicotine dependence, unspecified, uncomplicated; Z92.21 Personal history of antineoplastic chemotherapy; X58.XXXA Exposure to other specified factors, initial encounter; Y93.89 Activity, other specified; Y92.89 Other specified places as the place of occurrence of the external cause; Y99.8 Other external cause status
CPT/HCPCS: 70450

== ENCOUNTER 2020-08-02 14:59 | Emergency (ER) | payer MEDICARE ==
[~2020-08-02] VITALS: Ht 162.6 cm; Wt 59.0 kg
[~2020-08-02 14:59] MED LIST changes: -PHEN26CR RC; +PHEN26CR2 RC
[2020-08-02 15:35] LABS: BASO % 0 % (0-3); EOS # 0.3 x10^3/uL (0.0-0.7); EOS % 7 % (0-3); HEMATOCRIT 22.9 % (39.0-53.0); HEMOGLOBIN 7.5 g/dL (13.0-17.5); LYMPH # 1.2 x10^3/uL (1.0-4.8); LYMPH % 29 % (24-48); MEAN CORPUSCULAR HEMOGLOBIN 31 pg (25-35); MEAN CORPUSCULAR HGB CONC 33 g/dL (31-37); MEAN CORPUSCULAR VOLUME 93 fL (79-100); MONO # 0.5 x10^3/uL (0.0-1.1); MONO % 12 % (0-9); NEUT # 2.2 x10^3/uL (1.8-7.7); NEUT % 52 % (31-73); PLATELET COUNT 281 x10^3/uL (140-400); RED BLOOD COUNT 2.46 x10^6/uL (4.30-5.70); RED CELL DISTRIBUTION WIDTH 23.1 % (11.5-14.5); WHITE BLOOD COUNT 4.3 x10^3/uL (4.0-11.0)
[2020-08-02 15:57] LABS: CALCIUM 8.1 mg/dL (8.5-10.1); CREATININE 1.2 mg/dL (0.7-1.3); GFR 57.5; POTASSIUM 3.4 mmol/L (3.5-5.1)
[2020-08-02 16:03] LABS: ALBUMIN 2.4 g/dL (3.4-5.0); ALBUMIN/GLOBULIN RATIO 0.7 (1.0-1.7); TOTAL BILIRUBIN 0.2 mg/dL (0.2-1.0); TOTAL PROTEIN 5.8 g/dL (6.4-8.2)
[2020-08-02 16:08] LABS: ANISOCYTOSIS MOD; OVALOCYTES FEW; PLT ESTIMATE ADEQUATE (ADEQUATE); POIKILOCYTOSIS SLIGHT
[2020-08-02 16:09] LABS: SCHISTOCYTES FEW
--- NOTE | 2020-08-02 16:53 | ED.ADGEN ---
Past Medical History Past Medical History: A-Fib, Anemia, Arthritis, Cancer, Dementia, GERD, Renal Disease, Seizure, TIA, UTI Additional Past Medical Histor: BLADDER CANCER, BACK PAIN,COVID19 Past Surgical History: Tonsillectomy Additional Past Surgical Histo: BACK SX, KNEE SX, FILTER IN R LEG, CARTOID SX Smoking Status: Former Smoker Alcohol Use: None Drug Use: None General Adult EDM: Chief Complaint: ABNORMAL LABS HPI: HPI: Patient is a 84 year old [f__sex] who presents with [] Review of Systems: Review of Systems: Constitutional: Denies fever or chills. [] Eyes: Denies change in visual acuity. [] HENT: Denies nasal congestion or sore throat. [] Respiratory: Denies cough or shortness of breath. [] Cardiovascular: Denies chest pain or edema. [] GI: Denies abdominal pain, nausea, vomiting, bloody stools or diarrhea. [] : Denies dysuria. [] Musculoskeletal: Denies back pain or joint pain. [] Integument: Denies rash. [] Neurologic: Denies headache, focal weakness or sensory changes. [] Endocrine: Denies polyuria or polydipsia. [] Lymphatic: Denies swollen glands. [] Psychiatric: Denies depression or anxiety. [] Allergies: Allergies: Allergies Coded Allergies Type Severity Reaction Last Updated Verified Penicillins Allergy Intermediate 06/13/15 Yes adhesive tape Adverse Reaction Intermediate tape- pulls skin off 06/13/15 Yes Physical Exam: PE: Constitutional: Well developed, well nourished, no acute distress, non-toxic appearance. [] HENT: Normocephalic, atraumatic, bilateral external ears normal, oropharynx moist, no oral exudates, nose normal. [] Eyes: PERRLA, EOMI, conjunctiva normal, no discharge. [] Neck: Normal range of motion, no tenderness, supple, no stridor. [] Cardiovascular:Heart rate regular rhythm, no murmur [] Lungs & Thorax: Bilateral breath sounds clear to auscultation [] Abdomen: Bowel sounds normal, soft, no tenderness, no masses, no pulsatile masses. [] Skin: Warm, dry, no erythema, no rash. [] Back: No tenderness, no CVA tenderness. [] Extremities: No tenderness, no cyanosis, no clubbing, ROM intact, no edema. [] Neurologic: Alert and oriented X 3, normal motor function, normal sensory function, no focal deficits noted. [] Psychologic: Affect normal, judgement normal, mood normal. [] Current Patient Data: Labs: Laboratory Tests Test 08/02/20 15:15 White Blood Count 4.3 x10^3/uL (4.0-11.0) Red Blood Count 2.46 x10^6/uL (4.30-5.70) L Hemoglobin 7.5 g/dL (13.0-17.5) L Hematocrit 22.9 % (39.0-53.0) L Mean Corpuscular Volume 93 fL (79-100) Mean Corpuscular Hemoglobin 31 pg (25-35) Mean Corpuscular Hemoglobin Concent 33 g/dL (31-37) Red Cell Distribution Width 23.1 % (11.5-14.5) H Platelet Count 281 x10^3/uL (140-400) Neutrophils (%) (Auto) 52 % (31-73) Lymphocytes (%) (Auto) 29 % (24-48) Monocytes (%) (Auto) 12 % (0-9) H Eosinophils (%) (Auto) 7 % (0-3) H Basophils (%) (Auto) 0 % (0-3) Neutrophils # (Auto) 2.2 x10^3/uL (1.8-7.7) Lymphocytes # (Auto) 1.2 x10^3/uL (1.0-4.8) Monocytes # (Auto) 0.5 x10^3/uL (0.0-1.1) Eosinophils # (Auto) 0.3 x10^3/uL (0.0-0.7) Basophils # (Auto) 0.0 x10^3/uL (0.0-0.2) Platelet Estimate Adequate (ADEQUATE) Poikilocytosis Slight Anisocytosis Mod Ovalocytes Few Schistocytes Few Sodium Level 144 mmol/L (136-145) Potassium Level 3.4 mmol/L (3.5-5.1) L Chloride Level 111 mmol/L (98-107) H Carbon Dioxide Level 25 mmol/L (21-32) Anion Gap 8 (6-14) Blood Urea Nitrogen 28 mg/dL (8-26) H Creatinine 1.2 mg/dL (0.7-1.3) Estimated GFR (Cockcroft-Gault) 57.5 BUN/Creatinine Ratio 23 (6-20) H Glucose Level 98 mg/dL (70-99) Calcium Level 8.1 mg/dL (8.5-10.1) L Total Bilirubin 0.2 mg/dL (0.2-1.0) Aspartate Amino Transferase (AST) 23 U/L (15-37) Alanine Aminotransferase (ALT) 31 U/L (16-63) Alkaline Phosphatase 99 U/L (46-116) Total Protein 5.8 g/dL (6.4-8.2) L Albumin 2.4 g/dL (3.4-5.0) L Albumin/Globulin Ratio 0.7 (1.0-1.7) L Laboratory Tests 08/02/20 15:15 Laboratory Tests 08/02/20 15:15 Vital Signs: Vital Signs Date Time Temp Pulse Resp B/P (MAP) Pulse Ox O2 Delivery O2 Flow Rate FiO2 08/02/20 15:17 97.8 69 20 132/63 (86) 98 Room Air 97.8 EKG: EKG: [] Heart Score: Risk Factors: Risk Factors: DM, Current or recent (<one month) smoker, HTN, HLP, family history of CAD, obesity. Risk Scores: Score 0 - 3: 2.5% MACE over next 6 weeks - Discharge Home Score 4 - 6: 20.3% MACE over next 6 weeks - Admit for Clinical Observation Score 7 - 10: 72.7% MACE over next 6 weeks - Early Invasive Strategies Radiology/Procedures: Radiology/Procedures: [] Course & Med Decision Making: Course & Med Decision Making Pertinent Labs and Imaging studies reviewed. (See chart for details) [] Dragon Disclaimer: Dragon Disclaimer: This electronic medical record was generated, in whole or in part, using a voice recognition dictation system. Departure Departure Impression: Primary Impression: Anemia Disposition: 01 DC HOME SELF CARE/HOMELESS Condition: STABLE Referrals: DURGA IBANEZ DO (PCP) Patient Instructions: Anemia, FAQs DAMIAN VALENZUELA MD Aug 02, 2020 16:53
[2020-08-02 18:00] VITALS: BP 130/71
== END 2020-08-02 18:10 | disposition home or self-care (01) ==
LOC: ER 14:59
DX: D64.9 Anemia, unspecified (principal); I48.91 Unspecified atrial fibrillation; K21.9 Gastro-esophageal reflux disease without esophagitis; F03.90 Unspecified dementia, unspecified severity, without behavioral disturbance, psychotic disturbance, mood disturbance, and anxiety; Z86.73 Personal history of transient ischemic attack (TIA), and cerebral infarction without residual deficits; Z87.891 Personal history of nicotine dependence; Z88.0 Allergy status to penicillin; Z88.8 Allergy status to other drugs, medicaments and biological substances
CPT/HCPCS: 36415; 80053; 85025; 86850; 86900; 86901; 99285-25

== ENCOUNTER 2020-10-28 06:31 | Emergency (ER) | payer MEDICARE ==
[~2020-10-28] VITALS: Ht 162.6 cm; Wt 59.0 kg
[~2020-10-28 06:31] MED LIST changes: -CIPR500T PO; +CIPR500T2 PO; -LISI-338 PO; +LISI-517 PO; +LISI10TA16 PO; -LISI10TA2 PO
--- NOTE | 2020-10-28 07:07 | PHYS DOC ---
Past Medical History Past Medical History: A-Fib, Anemia, Arthritis, Cancer, Dementia, GERD, Renal Disease, Seizure, TIA, UTI Additional Past Medical Histor: BLADDER CANCER, BACK PAIN,COVID19 Past Surgical History: Tonsillectomy Additional Past Surgical Histo: BACK SX, KNEE SX, FILTER IN R LEG, CARTOID SX Smoking Status: Former Smoker Alcohol Use: None Drug Use: None General Adult EDM: Chief Complaint: MECHANICAL FALL HPI: HPI: 85-year-old male past medical history significant for moderate cancer with indwelling Pack, A-Fib, Anemia, Arthritis, Cancer, Dementia, GERD and Renal Disease, presents to the ED brought in by EMS from assisted living facility, found down with large hematoma to his forehead. EMR was reviewed -patient with suspected traumatic (found down) left posterior parietal-occipital parenchymal hematoma, Intraventricular hemorrhage, and small subdural hemorrhage along the posterior falx 11/2019. Review of Systems: Review of Systems: ROS: Unobtainable due to dementia Heart Score: Risk Factors: Risk Factors: DM, Current or recent (<one month) smoker, HTN, HLP, family history of CAD, obesity. Risk Scores: Score 0 - 3: 2.5% MACE over next 6 weeks - Discharge Home Score 4 - 6: 20.3% MACE over next 6 weeks - Admit for Clinical Observation Score 7 - 10: 72.7% MACE over next 6 weeks - Early Invasive Strategies Allergies: Allergies: Allergies Coded Allergies Type Severity Reaction Last Updated Verified Penicillins Allergy Intermediate 06/13/15 Yes adhesive tape Adverse Reaction Intermediate tape- pulls skin off 06/13/15 Yes Physical Exam: PE: Constitutional: Well developed, well nourished, no acute distress, non-toxic appearance. [] HENT: Large 6 x 6 cm right forehead hematoma-abrasion over skin of hematoma but no active bleeding, bilateral external ears normal, oropharynx moist, no hemotympanum, no septal hematoma, no oral bleeding Eyes: PERRLA, EOMI, conjunctiva normal, no discharge. [] Neck: Normal range of motion, no tenderness, supple, no stridor. [] Cardiovascular:Heart rate regular rhythm, S1, S2 Lungs & Thorax: Bilateral breath sounds clear to auscultation, equal chest rise, normal respirations Abdomen: soft, no pain with pelvic rock, Skin: Warm, dry, no erythema, no rash. [] Back: No midline tenderness or step-offs, no posterior back pain with palpation, no sacral ulcers : leg pack bag completely full of dark yellow urine, moaning when lifting up bag Extremities: Normal, equal pitting edema, bruising over left arm with posterior foot ulcer, ulcer over left leg Neurologic: Alert-states his name, does not follow commands, normal motor function, normal sensory function, no focal deficits noted. [] Psychologic: Affect normal, calm Current Patient Data: Vital Signs: Vital Signs Date Time Temp Pulse Resp B/P (MAP) Pulse Ox O2 Delivery O2 Flow Rate FiO2 10/28/20 06:32 98.2 88 16 130/71 (90) 99 Room Air 98.2 EKG: EKG: Sinus rhythm at 70 bpm, left axis deviation, first-degree AV block with FL 204, PAC, no T wave inversions, no ST elevations or ST depressions, Q waves in 1 and aVL Radiology/Procedures: Radiology/Procedures: IMAGING REPORT Signed PATIENT: DANIEL RAMIREZ ACCOUNT: [id number] : 1935 LOCATION: ER AGE: 85 SEX: M EXAM STATUS: REG ER ORD. PHYSICIAN: AMBREEN HONG DO REASON: fall PROCEDURE: CT HEAD AND CERVICAL SPINE WO CT HEAD AND C-SPINE WO Date: 10/28/2020 7:06 AM Clinical Indication: fall, pain Comparison: 01/09/2020. Technique: 5 mm axial tomographic images were obtained of the head without contrast. These were viewed on brain and bone windows. Noncontrast CT of the cervical spine was performed. Sagittal and coronal reformats were performed and evaluated. One or more of the following dose reduction techniques were utilized: Automated exposure control (AEC), Adjustment of mA and/or kV according to patient size, Use of iterative reconstruction technique such as ASiR, CT scan done according to ALARA and image gently/image wisely HEAD FINDINGS: Mild generalized cerebral and cerebellar volume loss. Mild nonspecific periventricular hypoattenuation, most commonly seen with chronic small vessel ischemic disease. Right frontal and left parietal encephalomalacia. No hemorrhage. The ventricles are normal in size, shape, and morphology. The dumont-white matter junction is normal. The basilar cisterns are patent. The visualized paranasal sinuses are normal. The visualized portions of the orbits and globes are normal. The mastoid air cells are clear. No aggressive osseous lesion or fracture. Large right frontal scalp hematoma. CERVICAL SPINE FINDINGS: Postsurgical changes of ACDF at C3-C6 with interbody spacers. No acute fracture. No aggressive lytic or blastic osseous lesions. Moderate multilevel degenerative disc space height loss. Multilevel moderate spinal canal stenosis secondary to disc protrusions and marginal osteophytes. Multilevel moderate to severe neuroforaminal narrowing secondary to uncovertebral arthrosis. Multilevel mild and moderate facet arthrosis. The thyroid gland is normal. No cervical lymphadenopathy. Bilateral carotid atherosclerosis. The visualized aerodigestive tract is normal. The visualized portions of the lungs are clear. IMPRESSION: 1. No acute intracranial process. Large right frontal scalp hematoma. 2. No acute cervical spine fracture. Electronically signed by: Geronimo Wilder MD (10/28/2020 7:40 AM) [id number] DICTATED and SIGNED BY: GERONIMO WILDER MD DATE: 10/28/20 [id number] IMAGING REPORT Signed PATIENT: DANIEL RAMIREZ ACCOUNT: [id number] : 1935 LOCATION: ER AGE: 85 SEX: M EXAM STATUS: REG ER ORD. PHYSICIAN: AMBREEN HONG DO REASON: fall PROCEDURE: PORTABLE CHEST 1V XR CHEST 1V INDICATION: fall COMPARISON STUDY: 07/16/2020. FINDINGS: Lungs: Low lung volume. Right mid lung heterogeneous opacities. Pleura: No pleural effusion or pneumothorax. Heart and Mediastinum: Stable cardiomediastinal silhouette. Tortuous atherosclerotic aorta. IMPRESSION: Right mid lung heterogeneous opacities, concerning for an infectious/inflamma tory process. Electronically signed by: Geronimo Wilder MD (10/28/2020 7:22 AM) [id number] DICTATED and SIGNED BY: GERONIMO WILDER MD DATE: 10/28/20 [id number] IMAGING REPORT Signed PATIENT: DANIEL RAMIREZ ACCOUNT: [id number] : 1935 LOCATION: ER AGE: 85 SEX: M EXAM STATUS: REG ER ORD. PHYSICIAN: AMBREEN HONG DO REASON: fall, pna? PROCEDURE: CT CHEST ABD PELVIS W/CONTRAST CT chest abdomen and pelvis with contrast 10/28/2020. Reason for exam: Patient fell. Chest radiograph showed possible pneumonia. CT images were performed through the chest abdomen and pelvis using an infusion of 60 mL Omnipaque 350. No oral contrast was given. Exposure: One or more of the following individualized dose reduction techniques were utilized for this examination: 1. Automated exposure control 2. Adjustment of the mA and/or kV according to patient size 3. Use of iterative reconstruction technique. Comparison is made with prior CTs of 11/05/2018 and 05/26/2018 CT chest findings: There may be a trace of pleural fluid on each side. There is some adjacent dependent atelectasis in the lower lobes. Minimal infiltrate is seen posteriorly in the right upper lobe. No other significant pulmonary parenchymal abnormality is seen. The central airways show no obstruction. No enlarged lymph nodes are seen. The thoracic aorta measures upper limits of normal in caliber. There is no evidence of dissection. IMPRESSION: There is mild infiltrate in the right upper lobe. There are probably trace bilateral pleural effusions with atelectasis. CT abdomen and pelvis findings: The liver and spleen are homogeneous in density and normal in configuration. Both kidneys enhance with contrast. There is no apparent solid mass. A small cyst arises laterally from the lower left kidney. There is now some hydronephrosis on each side, right greater than left. No cause for obstruction is seen. The adrenal glands are not enlarged. The pancreas appears normal. No retroperitoneal or mesenteric adenopathy is seen. There is no apparent free fluid in the abdomen. A vena cava filter is again shown in the IVC. There is a large amount of stool throughout the colon. Images through the pelvis again show decompression of the bladder by catheter. There is chronic deformity of the left pubic bone. There are changes of sacral plasty bilaterally, and fixation rods and screws are shown through the lower lumbar levels. Artifact slightly limits evaluation. There is no free fluid in the pelvis. There is a left inguinal hernia that now contains small amount of proximal sigmoid colon without associated obstruction. No pelvic mass or inflammatory process is seen. IMPRESSION: There is now some hydronephrosis without apparent dilatation of the distal ureters or other identified cause for obstruction. There is now a left inguinal hernia containing a portion of sigmoid colon. No other acute abnormality is seen. Electronically signed by: Dora Travis Jr., MD (10/28/2020 9:26 AM) [facility] DICTATED and SIGNED BY: DORA TRAVIS Jr, MD DATE: 10/28/20 [id number] IMAGING REPORT Signed PATIENT: DANIEL RAMIREZ ACCOUNT: [id number] : 1935 LOCATION: ER AGE: 85 SEX: M EXAM STATUS: REG ER ORD. PHYSICIAN: AMBREEN HONG DO REASON: FALL, BACK PAIN PROCEDURE: CT THORACIC SPINE RECONSTRUCT EXAM: CT Thoracic Spine without IV contrast INDICATION: Reason: FALL, BACK PAIN / Spl. Instructions: / History: TECHNIQUE: Multi-detector row CT images were obtained through the thoracic spine without the use of IV contrast. Post-processing sagittal and coronal reconstructed images were obtained for interpretation. All CT scans performed at this facility utilize dose optimization techniques as appropriate to the exam, including the following: Automated exposure control and adjustment of the mA and/or KV according to patient size (this includes techniques or standardized protocols for targeted exams where dose is indication/reason for exam). COMPARISON: CT T-spine without IV contrast of 12/04/2019 FINDINGS: ALIGNMENT: Alignment is within normal limits. OSSEOUS: Generalized osteopenia. Anterior wedge compression deformity at T7 with at least 40 percent loss of height is unchanged. DISC SPACES: Multilevel disc degenerative change with narrowing. There are some levels of osseous bridging along the anterior longitudinal ligament in the lower thoracic spine at the T8 through T11 level. FACET JOINTS: Unremarkable. SPINAL CANAL: Unremarkable. NEUROFORAMINA: Unremarkable. SOFT TISSUES: Ectasia of the ascending thoracic aorta to 4.0 cm with scattered calcifications. Calcifications also present in the aortic valve. Included lungs show patchy areas of groundglass attenuation. No pneumothorax or pleural effusion is evident. IMPRESSION: Unchanged chronic anterior wedge compression fracture at T7 the setting of generalized osteopenia. No acute traumatic findings in the thoracic spine with multilevel degenerative spondylosis noted. EXAM: CT Lumbar Spine without IV contrast INDICATION: Reason: FALL, BACK PAIN / Spl. Instructions: / History: TECHNIQUE: Multi-detector row CT images were obtained through the lumbar spine without the use of IV contrast. Post-processing sagittal and coronal reconstructed images were obtained for interpretation. All CT scans performed at this facility utilize dose optimization techniques as appropriate to the exam, including the following: Automated exposure control and adjustment of the mA and/or KV according to patient size (this includes techniques or standardized protocols for targeted exams where dose is indication/reason for exam). COMPARISON: CT lumbar spine of 12/04/2019 without IV contrast FINDINGS: The lowest fully formed disc is referred to as the L5-S1 level. ALIGNMENT: Stable grade 1 anterolisthesis of L4 on L5 in the setting of interbody graft. Stable mild levoscoliosis. OSSEOUS: Generalized osteopenia. Sacral plasty surgical changes in the bilateral upper sacrum, and jeevan and pedicle screw construct posterior decompression and fusion surgical changes in the lower lumbar spine spanning L3- L5 are similar to prior. Interbody grafting at L4-L5 redemonstrated. No acute fracture is seen. There is evidence of incomplete healing of the right sacral fracture. Kyphotic angulation at the mid sacrum is similar to prior and con sistent with residual deformity from old sacral fracture. There is also chronic deformity to the left superior and inferior pubic rami from old fractures. DISC SPACES: Multilevel degenerative changes similar to prior with surgical fusion at L4-5 and either surgical or autofusion at L5-S1. FACET JOINTS: Surgically fused at L3-L4 through L5-S1 but otherwise anatomic alignment. SPINAL CANAL: Evaluation is limited by beam hardening artifact from implanted hardware no bony central canal stenosis is appreciated. NEUROFORAMINA: Varying degrees of foraminal stenosis due to disc and facet degenerative changes, most conspicuous at L2-L3 bilaterally. SOFT TISSUES: Incidental aortic calcification, IVC filter and right hydronephrosis are noted. A Pack catheter is present in the urinary bladder. IMPRESSION: Generalized osteopenia with multiple old pelvic fractures but with no current CT evidence of an acute fracture or traumatic malalignment. Electronically signed by: Jamie Malcolm MD (10/28/2020 9:42 AM) [facility] DICTATED and SIGNED BY: JAMIE MALCOLM MD DATE: 10/28/20 [id number] Course & Med Decision Making: Course & Med Decision Making Pertinent Labs and Imaging studies reviewed. (See chart for details) Concern for fall in demented pt from [facility]. CT images show his large forehead hematoma. Hydronephrosis is seen on CT with slight bump in creatinine but I suspect this has resolved after draining a completely full leg pack bag. RN spoke to daughter and will DC back home to his facility. Urine sample was not obtained prior to draining Pack bag. Patient hemodynamically stable, afebrile with no leukocytosis. Will discharge home with strict ED return precautions were given for repeat head injury, fever, worsening confusion or delirium or strokelike symptoms. Encouraged urgent outpatient follow-up with PMD and nephrology. Life-threatening processes were considered but are low suspicion at this time, given history, physical exam and ED workup. Pt was educated on all prescription medications and adverse effects. All patient's questions were answered and pt was stable at time of discharge. Life/limb-threatening differential includes but is not limited to, intracranial hemorrhage, diffuse axonal injury, spinal cord syndrome, unstable cervical fracture or SCIWORA, fractures or joint dislocations, neurovascular injuries, organ injury or laceration, pneumothorax, pneumoperitoneum, pericardial tamponade, unstable pelvic fracture, compartment syndrome, flail chest or respiratory distress, burn injury or asphyxiation I spoken with the patient and her caregivers. I explained the patient's condition, diagnoses and treatment plan based on the information available to me at this time. I have answered the patient and her caregiver's questions and addressed any concerns. The patient and her caregivers have a good understanding of patient's diagnosis, condition and treatment plan as can be expected at this point. Vital signs have been stable. Patient's condition is stable and appropriate for discharge from the emergency department. Patient will pursue further outpatient evaluation with primary care physician or other designated or consulting physician as outlined in the discharge inst ructions. The patient and/or caregivers are agreeable to this plan of care and follow-up instructions have been explained in detail. The patient and/or caregivers have received these instructions in written form and have expressed an understanding of the discharge instructions. The patient and/or caregivers are aware that any significant change of condition or worsening of symptoms should prompt immediate return to this or the closest emergency department or call to 911. Odilia Disclaimer: Odilia Disclaimer: This electronic medical record was generated, in whole or in part, using a voice recognition dictation system. Departure Departure Impression: Primary Impression: Traumatic hematoma of forehead Additional Impression: Acute kidney injury Disposition: DC HOME SELF CARE/HOMELESS Condition: STABLE Referrals: DURGA IBANEZ DO (PCP) In 2 to 3 days for reevaluation Patient Instructions: Acute Kidney Injury, Fall Prevention and Home Safety, Hematoma Additional Instructions: FOLLOW UP WITH NEUROLOGY: [facility] Address: [address] [place] [address] EMERGENCY DEPARTMENT GENERAL DISCHARGE INSTRUCTIONS Thank you for coming to [facility] Emergency Department (ED) today and trusting us with you care. We trust that you had a positive experience in our Emergency Department. If you wish to speak to the department management, you may call the Director at [phone]. YOUR FOLLOW UP INSTRUCTIONS ARE FOLLOWS: 1. Do you have a private Doctor? If you do not have a private doctor, please ask for a resource list of physicians or clinics that may be able to assist you with follow up care. 2. The Emergency Physicain has interpreted your x-rays. The X-Ray specialist will also review them. If there is a change in the findings, you will be notified in 48 hours when at all possible. 3. A lab test or culture has been done, your results will be reviewed and you will be notified if you need a change in treatment. ADDITIONAL INSTRUCTIONS AND INFORMATION: 1. Your care today has been supervised by a physician who is specially trained in emergency care. Many problems require more than one evaluation for a complete diagnosis and treatment. We recommend that you schedule your follow up appointment as recommended to ensure complete treatment of you illness or injury. If you are unable to obtain follow up care and continue to have a problem, or if your condition worsens, we recommend that you return to the ED. 2. We are not able to safely determine your condition over the phone nor are we able to give sound medical advice over the phone. For these safety reasons, if you call for medical advice we will ask you to come to the ED for further evaluation. 3. If you have any questions regarding these discharge instructions please call the ED at [phone]. SAFETY INFORMATION: In the interest of safety, wellness, and injury prevention; we encourage you to wear your sealbelt, if you smoke; quite smoking, and we encourage family to use a protective helmet for bicycling and other sporting events that present an increased risk for head injury. IF YOUR SYMPTOMS WORSEN OR NEW SYMPTOMS DEVELOP, OR YOU HAVE CONCERNS ABOUT YOUR CONDITION; OR IF YOUR CONDITION WORSENS WHILE YOU ARE WAITING FOR YOUR FOLLOW UP APPOINTMENT; EITHER CONTACT YOUR PRIMARY CARE DOCTOR, THE PHYSICIAN WHOSE NAME AND NUMBER YOU WERE GIVEN, OR RETURN TO THE ED IMMEDIATELY. [facility] DO Oct 28, 2020 07:07
--- NOTE | 2020-10-28 07:24 | RAD ---
XR CHEST 1V INDICATION: fall COMPARISON STUDY: 07/16/2020. FINDINGS: Lungs: Low lung volume. Right mid lung heterogeneous opacities. Pleura: No pleural effusion or pneumothorax. Heart and Mediastinum: Stable cardiomediastinal silhouette. Tortuous atherosclerotic aorta. IMPRESSION: Right mid lung heterogeneous opacities, concerning for an infectious/inflammatory process. Electronically signed by: Dom Wilder MD (10/28/2020 7:22 AM) [id number]
--- NOTE | 2020-10-28 07:43 | RAD ---
CT HEAD AND C-SPINE WO Date: 10/28/2020 7:06 AM Clinical Indication: fall, pain Comparison: 01/09/2020. Technique: 5 mm axial tomographic images were obtained of the head without contrast. These were view ed on brain and bone windows. Noncontrast CT of the cervical spine was performed. Sagittal and castro l reformats were performed and evaluated. One or more of the following dose reduction techniques were utilized: Automated exposure control (AEC), Adjustment of mA and/or kV according to patient size, Us e of iterative reconstruction technique such as ASiR, CT scan done according to ALARA and image gentl y/image wisely HEAD FINDINGS: Mild generalized cerebral and cerebellar volume loss. Mild nonspecific periventricular hypoattenuatio n, most commonly seen with chronic small vessel ischemic disease. Right frontal and left parietal encephalomalacia. No hemorrhage. The ventricles are normal in size, s hape, and morphology. The dumont-white matter junction is normal. The basilar cisterns are patent. The visualized paranasal sinuses are normal. The visualized portions of the orbits and globes are no rmal. The mastoid air cells are clear. No aggressive osseous lesion or fracture. Large right frontal scalp hematoma. CERVICAL SPINE FINDINGS: Postsurgical changes of ACDF at C3-C6 with interbody spacers. No acute fracture. No aggressive lytic or blastic osseous lesions. Moderate multilevel degenerative disc space height loss. Multilevel moderate spinal canal stenosis se condary to disc protrusions and marginal osteophytes. Multilevel moderate to severe neuroforaminal na rrowing secondary to uncovertebral arthrosis. Multilevel mild and moderate facet arthrosis. The thyroid gland is normal. No cervical lymphadenopathy. Bilateral carotid atherosclerosis. The visu alized aerodigestive tract is normal. The visualized portions of the lungs are clear. IMPRESSION: 1. No acute intracranial process. Large right frontal scalp hematoma. 2. No acute cervical spine fracture. Electronically signed by: Dom Wilder MD (10/28/2020 7:40 AM) [id number]
[2020-10-28 08:24] LABS: BARBITURATES NEG (NEG); BENZODIAZEPINES NEG (NEG); CANNABINOIDS NEG (NEG); COCAINE NEG (NEG); METHADONE NEG (NEG); OPIATES NEG (NEG); PHENCYCLIDINE NEG (NEG)
[2020-10-28 08:25] LABS: AMPHETAMINE/METHAMPHETAMINE NEG (NEG)
[2020-10-28 08:27] LABS: BASO % 0 % (0-3); EOS # 0.5 x10^3/uL (0.0-0.7); EOS % 8 % (0-3); HEMATOCRIT 27.1 % (39.0-53.0); HEMOGLOBIN 8.6 g/dL (13.0-17.5); LYMPH # 1.3 x10^3/uL (1.0-4.8); LYMPH % 22 % (24-48); MEAN CORPUSCULAR HEMOGLOBIN 29 pg (25-35); MEAN CORPUSCULAR HGB CONC 32 g/dL (31-37); MEAN CORPUSCULAR VOLUME 91 fL (79-100); MONO # 0.5 x10^3/uL (0.0-1.1); MONO % 8 % (0-9); NEUT # 3.6 x10^3/uL (1.8-7.7); NEUT % 62 % (31-73); PLATELET COUNT 222 x10^3/uL (140-400); RED BLOOD COUNT 2.99 x10^6/uL (4.30-5.70); RED CELL DISTRIBUTION WIDTH 16.6 % (11.5-14.5); WHITE BLOOD COUNT 5.9 x10^3/uL (4.0-11.0)
[2020-10-28] MEDS ORDERED: IOHEXOL 300 MG/ML 100ML VIAL. IV ONE (08:30)
[2020-10-28 08:37] LABS: CALCIUM 8.7 mg/dL (8.5-10.1); CREATININE 1.4 mg/dL (0.7-1.3); GFR 48.1; POTASSIUM 4.2 mmol/L (3.5-5.1)
[2020-10-28 08:42] LABS: PROTHROMBIN TIME PATIENT 14.2 SEC (11.7-14.0)
[2020-10-28 08:43] LABS: ALBUMIN 2.9 g/dL (3.4-5.0); ALBUMIN/GLOBULIN RATIO 0.7 (1.0-1.7); MAGNESIUM 2.2 mg/dL (1.8-2.4); TOTAL BILIRUBIN 0.2 mg/dL (0.2-1.0); TOTAL PROTEIN 7.2 g/dL (6.4-8.2)
[2020-10-28] MEDS ORDERED: CONTRAST GIVEN. MC PRN (08:45)
--- NOTE | 2020-10-28 09:28 | RAD ---
CT chest abdomen and pelvis with contrast 10/28/2020. Reason for exam: Patient fell. Chest radiograph showed possible pneumonia. CT images were performed through the chest abdomen and pelvis using an infusion of 60 mL Omnipaque 35 0. No oral contrast was given. Exposure: One or more of the following individualized dose reduction t echniques were utilized for this examination: 1. Automated exposure control 2. Adjustment of the mA and/or kV according to patient size 3. Use of iterative reconstruction technique. Comparison is mad e with prior CTs of 11/05/2018 and 05/26/2018 CT chest findings: There may be a trace of pleural fluid on each side. There is some adjacent depende nt atelectasis in the lower lobes. Minimal infiltrate is seen posteriorly in the right upper lobe. No other significant pulmonary parenchymal abnormality is seen. The central airways show no obstruction . No enlarged lymph nodes are seen. The thoracic aorta measures upper limits of normal in caliber. Th ere is no evidence of dissection. IMPRESSION: There is mild infiltrate in the right upper lobe. There are probably trace bilateral pleu ral effusions with atelectasis. CT abdomen and pelvis findings: The liver and spleen are homogeneous in density and normal in configu ration. Both kidneys enhance with contrast. There is no apparent solid mass. A small cyst arises late rally from the lower left kidney. There is now some hydronephrosis on each side, right greater than l eft. No cause for obstruction is seen. The adrenal glands are not enlarged. The pancreas appears norm al. No retroperitoneal or mesenteric adenopathy is seen. There is no apparent free fluid in the abdom en. A vena cava filter is again shown in the IVC. There is a large amount of stool throughout the col on. Images through the pelvis again show decompression of the bladder by catheter. There is chronic defor mity of the left pubic bone. There are changes of sacral plasty bilaterally, and fixation rods and sc rews are shown through the lower lumbar levels. Artifact slightly limits evaluation. There is no free fluid in the pelvis. There is a left inguinal hernia that now contains small amount of proximal sigm oid colon without associated obstruction. No pelvic mass or inflammatory process is seen. IMPRESSION: There is now some hydronephrosis without apparent dilatation of the distal ureters or oth er identified cause for obstruction. There is now a left inguinal hernia containing a portion of sigm oid colon. No other acute abnormality is seen. Electronically signed by: Freddy Travis Jr., MD (10/28/2020 9:26 AM) [facility]
--- NOTE | 2020-10-28 09:44 | RAD ---
EXAM: CT Thoracic Spine without IV contrast INDICATION: Reason: FALL, BACK PAIN / Spl. Instructions: / History: TECHNIQUE: Multi-detector row CT images were obtained through the thoracic spine without the use of IV contrast. Post-processing sagittal and coronal reconstructed images were obtained for interpretati on. All CT scans performed at this facility utilize dose optimization techniques as appropriate to th e exam, including the following: Automated exposure control and adjustment of the mA and/or KV accord ing to patient size (this includes techniques or standardized protocols for targeted exams where dose is indication/reason for exam). COMPARISON: CT T-spine without IV contrast of 12/04/2019 FINDINGS: ALIGNMENT: Alignment is within normal limits. OSSEOUS: Generalized osteopenia. Anterior wedge compression deformity at T7 with at least 40 percent loss of height is unchanged. DISC SPACES: Multilevel disc degenerative change with narrowing. There are some levels of osseous br idging along the anterior longitudinal ligament in the lower thoracic spine at the T8 through T11 lev el. FACET JOINTS: Unremarkable. SPINAL CANAL: Unremarkable. NEUROFORAMINA: Unremarkable. SOFT TISSUES: Ectasia of the ascending thoracic aorta to 4.0 cm with scattered calcifications. Calci fications also present in the aortic valve. Included lungs show patchy areas of groundglass attenuati on. No pneumothorax or pleural effusion is evident. IMPRESSION: Unchanged chronic anterior wedge compression fracture at T7 the setting of generalized osteopenia. No acute traumatic findings in the thoracic spine with multilevel degenerative spondylosis noted. EXAM: CT Lumbar Spine without IV contrast INDICATION: Reason: FALL, BACK PAIN / Spl. Instructions: / History: TECHNIQUE: Multi-detector row CT images were obtained through the lumbar spine without the use of IV contrast. Post-processing sagittal and coronal reconstructed images were obtained for interpretation . All CT scans performed at this facility utilize dose optimization techniques as appropriate to the exam, including the following: Automated exposure control and adjustment of the mA and/or KV accordin g to patient size (this includes techniques or standardized protocols for targeted exams where dose i s indication/reason for exam). COMPARISON: CT lumbar spine of 12/04/2019 without IV contrast FINDINGS: The lowest fully formed disc is referred to as the L5-S1 level. ALIGNMENT: Stable grade 1 anterolisthesis of L4 on L5 in the setting of interbody graft. Stable mild levoscoliosis. OSSEOUS: Generalized osteopenia. Sacral plasty surgical changes in the bilateral upper sacrum, and r od and pedicle screw construct posterior decompression and fusion surgical changes in the lower lumba r spine spanning L3-L5 are similar to prior. Interbody grafting at L4-L5 redemonstrated. No acute fra cture is seen. There is evidence of incomplete healing of the right sacral fracture. Kyphotic angulat ion at the mid sacrum is similar to prior and consistent with residual deformity from old sacral frac ture. There is also chronic deformity to the left superior and inferior pubic rami from old fractures . DISC SPACES: Multilevel degenerative changes similar to prior with surgical fusion at L4-5 and eithe r surgical or autofusion at L5-S1. FACET JOINTS: Surgically fused at L3-L4 through L5-S1 but otherwise anatomic alignment. SPINAL CANAL: Evaluation is limited by beam hardening artifact from implanted hardware no bony centr al canal stenosis is appreciated. NEUROFORAMINA: Varying degrees of foraminal stenosis due to disc and facet degenerative changes, mos t conspicuous at L2-L3 bilaterally. SOFT TISSUES: Incidental aortic calcification, IVC filter and right hydronephrosis are noted. A Fole y catheter is present in the urinary bladder. IMPRESSION: Generalized osteopenia with multiple old pelvic fractures but with no current CT evidence of an acute fracture or traumatic malalignment. Electronically signed by: Leticia Belcher MD (10/28/2020 9:42 AM) [facility] [place]
[2020-10-28 11:35] VITALS: BP 144/67
--- NOTE | 2020-10-28 12:55 | EKG ---
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
== END 2020-10-28 11:35 | disposition home or self-care (01) ==
LOC: ER 06:31
DX: S00.83XA Contusion of other part of head, initial encounter (principal); I48.20 Chronic atrial fibrillation, unspecified; M19.90 Unspecified osteoarthritis, unspecified site; K21.9 Gastro-esophageal reflux disease without esophagitis; F03.90 Unspecified dementia, unspecified severity, without behavioral disturbance, psychotic disturbance, mood disturbance, and anxiety; F17.200 Nicotine dependence, unspecified, uncomplicated; Z85.9 Personal history of malignant neoplasm, unspecified; Z90.89 Acquired absence of other organs; Z98.890 Other specified postprocedural states; X58.XXXA Exposure to other specified factors, initial encounter; Y93.89 Activity, other specified; Y92.89 Other specified places as the place of occurrence of the external cause; Y99.8 Other external cause status
CPT/HCPCS: 36415; 70450; 71045; 71260; 72125; 74177; 80053; 80307; 82550; 83735; 83880; 84484; 85025; 85610; 85730; 93005; 99285; Q9967

== ENCOUNTER 2021-01-05 09:19 | Emergency (ER) | payer MEDICARE ==
[~2021-01-05] VITALS: Ht 172.7 cm; Wt 80.0 kg
--- NOTE | 2021-01-05 09:33 | PHYS DOC ---
Past Medical History Past Medical History: A-Fib, Anemia, Arthritis, Cancer, Dementia, GERD, Renal Disease, Seizure, TIA, UTI Additional Past Medical Histor: BLADDER CANCER, BACK PAIN,COVID19 Past Surgical History: Tonsillectomy Additional Past Surgical Histo: BACK SX, KNEE SX, FILTER IN R LEG, CARTOID SX Smoking Status: Former Smoker Alcohol Use: None Drug Use: None General Adult EDM: Chief Complaint: URINE CATHETER PROBLEM HPI: HPI: Patient is a 85 year old male with a history of bladder cancer, atrial fibrillation, was brought here by EMS from skilled nursing due to blood in his Paul catheter. Patient has an indwelling Paul catheter, nursing staff noted ada blood in his Paul catheter this morning. Patient is a very poor historian. Review of Systems: Review of Systems: Constitutional: Denies fever or chills. [] Eyes: Denies change in visual acuity. [] HENT: Denies nasal congestion or sore throat. [] Respiratory: Denies cough or shortness of breath. [] Cardiovascular: Denies chest pain or edema. [] GI: positive for abdominal pain, no nausea, vomiting, bloody stools or diarrhea. [] : Positive for bloodY urine Musculoskeletal: Denies back pain or joint pain. [] Integument: Denies rash. [] Neurologic: Denies headache, focal weakness or sensory changes. [] Endocrine: Denies polyuria or polydipsia. [] Lymphatic: Denies swollen glands. [] Psychiatric: Denies depression or anxiety. [] Heart Score: C/O Chest Pain: N/A Risk Factors: Risk Factors: DM, Current or recent (<one month) smoker, HTN, HLP, family history of CAD, obesity. Risk Scores: Score 0 - 3: 2.5% MACE over next 6 weeks - Discharge Home Score 4 - 6: 20.3% MACE over next 6 weeks - Admit for Clinical Observation Score 7 - 10: 72.7% MACE over next 6 weeks - Early Invasive Strategies Allergies: Allergies: Allergies Coded Allergies Type Severity Reaction Last Updated Verified Penicillins Allergy Intermediate 06/13/15 Yes adhesive tape Adverse Reaction Intermediate tape- pulls skin off 06/13/15 Yes Physical Exam: PE: Constitutional: Well developed, well nourished, no acute distress, non-toxic appearance. [] HENT: Normocephalic, atraumatic, bilateral external ears normal, oropharynx moist, no oral exudates, nose normal. [] Eyes: PERRLA, EOMI, conjunctiva normal, no discharge. [] Neck: Normal range of motion, no tenderness, supple, no stridor. [] Cardiovascular:Heart rate regular rhythm, no murmur [] Lungs & Thorax: Bilateral breath sounds clear to auscultation [] Abdomen: Bowel sounds normal, soft, there is tenderness to palpation on right side, no masses, no pulsatile masses. Paul catheter in place with gross blood in bag. Skin: Warm, dry, no erythema, no rash. [] Back: No tenderness, no CVA tenderness. [] Extremities: No tenderness, no cyanosis, no clubbing, ROM intact, no edema. [] Neurologic: awake and alert, disoriented to place, time, normal motor function, normal sensory function, no focal deficits noted. [] Psychologic: Affect normal, judgement normal, mood normal. [] Current Patient Data: Labs: Laboratory Tests Test 01/05/21 09:40 White Blood Count 7.2 x10^3/uL Red Blood Count 3.31 x10^6/uL Hemoglobin 9.1 g/dL Hematocrit 28.5 % Mean Corpuscular Volume 86 fL Mean Corpuscular Hemoglobin 28 pg Mean Corpuscular Hemoglobin Concent 32 g/dL Red Cell Distribution Width 17.8 % Platelet Count 237 x10^3/uL Neutrophils (%) (Auto) 63 % Lymphocytes (%) (Auto) 20 % Monocytes (%) (Auto) 11 % Eosinophils (%) (Auto) 6 % Basophils (%) (Auto) 0 % Neutrophils # (Auto) 4.5 x10^3/uL Lymphocytes # (Auto) 1.5 x10^3/uL Monocytes # (Auto) 0.8 x10^3/uL Eosinophils # (Auto) 0.4 x10^3/uL Basophils # (Auto) 0.0 x10^3/uL Prothrombin Time 14.1 SEC Prothromb Time International Ratio 1.1 Activated Partial Thromboplast Time 41 SEC Sodium Level 145 mmol/L Potassium Level 4.4 mmol/L Chloride Level 108 mmol/L Carbon Dioxide Level 28 mmol/L Anion Gap 9 Blood Urea Nitrogen 39 mg/dL Creatinine 1.6 mg/dL Estimated GFR (Cockcroft-Gault) 41.2 BUN/Creatinine Ratio 24 Glucose Level 103 mg/dL Calcium Level 9.3 mg/dL Magnesium Level 2.1 mg/dL Total Bilirubin 0.2 mg/dL Aspartate Amino Transf (AST/SGOT) 13 U/L Alanine Aminotransferase (ALT/SGPT) 14 U/L Alkaline Phosphatase 67 U/L Total Protein 7.5 g/dL Albumin 3.2 g/dL Albumin/Globulin Ratio 0.7 Lipase 98 U/L Current Medications Medications (Trade) Dose Ordered Sig/Carter Route PRN Reason Start Time Stop Time Status Last Admin Dose Admin Morphine Sulfate (Morphine Sulfate) 2 mg 1X ONCE IV 01/05/21 12:00 01/05/21 12:01 DC 01/05/21 11:56 Morphine Sulfate (Morphine Sulfate) 4 mg 1X ONCE IV 01/05/21 14:00 01/05/21 14:01 EKG: EKG: [] Radiology/Procedures: Radiology/Procedures: [][facility] [address] [place] [address] IMAGING REPORT Signed PATIENT: DANIEL RAMIREZ ACCOUNT: [id number] : 1935 LOCATION: ER AGE: 85 SEX: M EXAM STATUS: REG ER ORD. PHYSICIAN: CHING LOPEZ DO REASON: right side flank pain, hematuria PROCEDURE: CT ABDOMEN PELVIS WO CONTRAST CT ABDOMEN+PELVIS WO INDICATION: right side flank pain, hematuria EXAM: Noncontrast CT of the abdomen and pelvis. Coronal and sagittal reformatted images were performed. PQRS compliance statement: One or more of the following individualized dose reduction techniques were utilized for this examination: 1. Automated exposure control 2. Adjustment of the mA and/or kV according to patient size 3. Use of iterative reconstruction technique COMPARISON: 10/28/2020 FINDINGS: No free air, free fluid, or fluid collection. Lower chest: Bibasilar dependent and subsegmental atelectasis. Cardiomegaly. Coronary artery atherosclerotic disease. Mitral annular calcification. Aortic valve leaflet calcifications. ABDOMEN: Liver: The noncontrast liver is homogeneous in attenuation. Gallbladder and biliary: Normal gallbladder without radiopaque stone. Normal caliber bile ducts. Spleen: Normal spleen. Pancreas: The noncontrast pancreas is homogeneous in attenuation without peripancreatic inflammatory changes. Adrenal glands: Normal adrenal glands. Kidneys and ureters: Severe right hydroureteronephrosis, similar to the prior. No opaque urinary calculus GI tract: Stomach contains fluid and debris. No dilated small bowel. Large colonic stool burden. Normal appendix. Vascular structures: Diffuse aortoiliac atherosclerotic disease. IVC filter Lymph nodes: No lymphadenopathy in the abdomen or pelvis. PELVIS: Genitourinary system: Bladder is decompressed by Paul catheter SKELETAL STRUCTURES AND SOFT TISSUES: Degenerative changes of the spine. Posterior lumbosacral instrumentation. Osseous demineralization. Chronic sacral insufficiency fractures with changes of sacral plasty. Chronic left superior and inferior pubic rami fracture deformities. Small left inguinal hernia containing a short segment of bowel IMPRESSION: 1. Severe right hydroureteronephrosis. No opaque urinary calculus. Bladder is decompressed by Paul catheter. 2. Large colonic stool burden, which may reflect constipation. Electronically signed by: Geronimo Wilder MD (01/05/2021 12:48 PM) [id number] DICTATED and SIGNED BY: GERONIMO WILDER MD DATE: 01/05/21 [id number] 0 Course & Med Decision Making: Course & Med Decision Making Pertinent Labs and Imaging studies reviewed. (See chart for details) Patient is an 85-year-old male who presented to ER by EMS from skilled nursing due to abdominal pain with blood in his urine. CT scan show severe right-sided hydronephrosis, patient continued to have blood in his Paul catheter after 3- hour continuous bladder irrigation. Patient will need to have urology evaluation, there is no urology service at this hospital, will need to transfer him to another hospital. Discussed with Dr. Coelho, hospitalist , at [facility], agreed to accept patient for transfer there. Odilia Disclaimer: Odilia Disclaimer: This electronic medical record was generated, in whole or in part, using a voice recognition dictation system. Departure Departure Impression: Primary Impression: Hematuria Additional Impressions: Hydronephrosis of right kidney Abdominal pain Disposition: 02 [facility] (Transferred to [facility], accepted by Dr. Coelho) Condition: STABLE Referrals: DURGA IBANEZ DO (PCP) CHING LOPEZ DO January 05, 2021 09:33
[2021-01-05 10:01] LABS: BASO % 0 % (0-3); EOS # 0.4 x10^3/uL (0.0-0.7); EOS % 6 % (0-3); HEMATOCRIT 28.5 % (39.0-53.0); HEMOGLOBIN 9.1 g/dL (13.0-17.5); LYMPH # 1.5 x10^3/uL (1.0-4.8); LYMPH % 20 % (24-48); MEAN CORPUSCULAR HEMOGLOBIN 28 pg (25-35); MEAN CORPUSCULAR HGB CONC 32 g/dL (31-37); MEAN CORPUSCULAR VOLUME 86 fL (79-100); MONO # 0.8 x10^3/uL (0.0-1.1); MONO % 11 % (0-9); NEUT # 4.5 x10^3/uL (1.8-7.7); NEUT % 63 % (31-73); PLATELET COUNT 237 x10^3/uL (140-400); RED BLOOD COUNT 3.31 x10^6/uL (4.30-5.70); RED CELL DISTRIBUTION WIDTH 17.8 % (11.5-14.5); WHITE BLOOD COUNT 7.2 x10^3/uL (4.0-11.0)
[2021-01-05 10:07] LABS: CALCIUM 9.3 mg/dL (8.5-10.1); CREATININE 1.6 mg/dL (0.7-1.3); GFR 41.2; POTASSIUM 4.4 mmol/L (3.5-5.1)
[2021-01-05 10:13] LABS: ALBUMIN 3.2 g/dL (3.4-5.0); ALBUMIN/GLOBULIN RATIO 0.7 (1.0-1.7); MAGNESIUM 2.1 mg/dL (1.8-2.4); PROTHROMBIN TIME PATIENT 14.1 SEC (11.7-14.0); TOTAL BILIRUBIN 0.2 mg/dL (0.2-1.0); TOTAL PROTEIN 7.5 g/dL (6.4-8.2)
[2021-01-05] MEDS ORDERED: MORPHINE SULFATE 2 MG/ML VIAL. IV ONE (12:00)
--- NOTE | 2021-01-05 12:51 | RAD ---
CT ABDOMEN+PELVIS WO INDICATION: right side flank pain, hematuria EXAM: Noncontrast CT of the abdomen and pelvis. Coronal and sagittal reformatted images were perform ed. PQRS compliance statement: One or more of the following individualized dose reduction techniques were utilized for this examinat ion: 1. Automated exposure control 2. Adjustment of the mA and/or kV according to patient size 3. Use of iterative reconstruction technique COMPARISON: 10/28/2020 FINDINGS: No free air, free fluid, or fluid collection. Lower chest: Bibasilar dependent and subsegmental atelectasis. Cardiomegaly. Coronary artery atherosc lerotic disease. Mitral annular calcification. Aortic valve leaflet calcifications. ABDOMEN: Liver: The noncontrast liver is homogeneous in attenuation. Gallbladder and biliary: Normal gallbladder without radiopaque stone. Normal caliber bile ducts. Spleen: Normal spleen. Pancreas: The noncontrast pancreas is homogeneous in attenuation without peripancreatic inflammatory changes. Adrenal glands: Normal adrenal glands. Kidneys and ureters: Severe right hydroureteronephrosis, similar to the prior. No opaque urinary calc ulus GI tract: Stomach contains fluid and debris. No dilated small bowel. Large colonic stool burden. Norm al appendix. Vascular structures: Diffuse aortoiliac atherosclerotic disease. IVC filter Lymph nodes: No lymphadenopathy in the abdomen or pelvis. PELVIS: Genitourinary system: Bladder is decompressed by Paul catheter SKELETAL STRUCTURES AND SOFT TISSUES: Degenerative changes of the spine. Posterior lumbosacral instru mentation. Osseous demineralization. Chronic sacral insufficiency fractures with changes of sacral pl asty. Chronic left superior and inferior pubic rami fracture deformities. Small left inguinal hernia containing a short segment of bowel IMPRESSION: 1. Severe right hydroureteronephrosis. No opaque urinary calculus. Bladder is decompressed by Paul c atheter. 2. Large colonic stool burden, which may reflect constipation. Electronically signed by: Dom Wilder MD (01/05/2021 12:48 PM) [id number]
[2021-01-05] MEDS ORDERED: MORPHINE SULFATE 4 MG/ML VIAL. IV ONE (14:00)
[2021-01-05 14:18] VITALS: BP 154/75
== END 2021-01-05 14:20 | disposition short-term general hospital (02) ==
LOC: ER 09:19
DX: N13.30 Unspecified hydronephrosis (principal); R31.9 Hematuria, unspecified; R10.9 Unspecified abdominal pain; I48.91 Unspecified atrial fibrillation; M19.90 Unspecified osteoarthritis, unspecified site; F03.90 Unspecified dementia, unspecified severity, without behavioral disturbance, psychotic disturbance, mood disturbance, and anxiety; K21.9 Gastro-esophageal reflux disease without esophagitis; Z86.2 Personal history of diseases of the blood and blood-forming organs and certain disorders involving the immune mechanism; Z87.440 Personal history of urinary (tract) infections; Z85.51 Personal history of malignant neoplasm of bladder; Z88.8 Allergy status to other drugs, medicaments and biological substances; Z88.0 Allergy status to penicillin
CPT/HCPCS: 36415; 74176; 80053; 83690; 83735; 85025; 85610; 85730; 96374; 96376; 99285; J2270; 51702